=== PATIENT | male | born 1975 | race Caucasian/White ===

== ENCOUNTER → 2017-04-17 | Outpatient (POV) | payer OTHER, SELFPAY | PROVIDERS: Family Provider Family Medicine; PCP Family Medicine; Referring Provider Otolaryngology; Visit Provider Otolaryngology | DX: E03.9 Hypothyroidism, unspecified (principal) | CPT/HCPCS: 36415; 84439; 84443 ==

== ENCOUNTER → 2018-01-23 14:51 | Outpatient (CLI) | payer OTHER, SELFPAY ==
--- NOTE | 2018-01-23 14:54 | MR_ITS ---
MR lumbar spine wo con, MR 3-d myelogram/MRCP HISTORY: LT sided LBP XMONTHS. Bilateral leg pain when raising legs. No trauma. ITS.REASON: LUMBAR BACK PAIN ORDERING PHYSICIAN: Cara Guthrie PATIENT AGE: 42 years Comparison: None TECHNIQUE: Standard multiplanar multiecho sequences are performed without contrast. 3-D MIP and myelographic images are also rendered and reviewed FINDINGS: There is normal alignment. The spinal cord ends at the L1 level. There mild J changes in the lower thoracic spine with some disc desiccation anteriorly at T11-T12 and T12-L1 and L1-L2 L1-L2, L2-L3, and L3-L4 have an unremarkable appearance. L4-L5: There is concentric bulging disc there is a small broad-based central disc protrusion/herniation slightly eccentric toward the left. This does abut the anteromedial aspect of both L5 nerve roots slightly greater on the left. There is mild inferior extrusion of the disc. There is mild left lateral recess narrowing. There is facet and ligamentum flavum hypertrophy at this level with mild right and moderate left foraminal narrowing . L5-S1: Mild concentric bulging disc with mild degenerative disc disease with mild facet and ligamentum flavum hypertrophy with moderate bilateral foraminal narrowing IMPRESSION: 1. L4-L5: There is concentric bulging disc with a small broad-based central disc protrusion/herniation slightly eccentric toward the left. This does abut the anteromedial aspect of both L5 nerve roots slightly greater on the left. There is mild inferior extrusion of the disc. There is mild left lateral recess narrowing. There is facet and ligamentum flavum hypertrophy at this level with mild right and moderate left foraminal narrowing . 2. L5-S1: Mild concentric bulging disc with mild degenerative disc disease with mild facet and ligamentum flavum hypertrophy with moderate bilateral foraminal narrowing
== END ==
PROVIDERS: PCP Family Medicine; Visit Provider Nurse Practitioner
DX: M54.5 Low back pain (principal)
CPT/HCPCS: 72148; 76376

== ENCOUNTER → 2018-06-08 15:15 | Outpatient (CLI) | payer OTHER, SELFPAY ==
[2018-06-08 16:48] LABS: Free T4 (Free Thyroxine) 0.92 ng/dl (0.76-1.46)
== END ==
PROVIDERS: Visit Provider Otolaryngology
DX: E03.9 Hypothyroidism, unspecified (principal)
CPT/HCPCS: 36415; 84439; 84443

== ENCOUNTER → 2020-01-07 15:58 | Outpatient (CLI) | payer OTHER, SELFPAY ==
--- NOTE | 2020-01-07 | MR_ITS ---
PROCEDURE: MR SHOULDER LT WO CON CLINICAL INDICATION: LEFT SHOULDER PAIN LEFT SHOULDER PAIN WITH LIMITED RANGE OF MOTION, SHOULDER SURGERY 3-4- YEARS AGO. PREVIOUS XRAYS 8-2-16 COMPARISON: CR [id number] [id number] VIEWS from 11/21/2015 TECHNIQUE: Routine multiplanar multi echo sequences are performed without and with gadolinium enhancement. FINDINGS: There are postsurgical changes of the humeral head. There is thickening of the supraspinatus and infraspinatus tendons consistent with tendinopathy/tendinosis. There is some irregular increased T2 signal within the supraspinatus tendon. Partial tear is a cannot be excluded. A full-thickness or complete tear does not appear to be present. There is focal increased T2 signal in the distal aspect of the supraspinatus tendon suggesting a partial tear. These findings could also be postsurgical in nature. There are mild hypertrophic changes of the acromioclavicular joint. The bicipital tendon is in place. The subscapularis and teres minor tendons appear intact. No obvious labral tear. IMPRESSION: Postsurgical changes of the humeral head with tendinopathy/tendinosis of the supraspinatus and infraspinatus tendons with possible partial tear of the supraspinatus tendon distally versus post surgical change. Dictated by: Ricardo Garay MD 01/09/2020 07:50 Ricardo Garay MD in [place] 01/09/2020 07:50
== END ==
PROVIDERS: PCP Family Medicine; Visit Provider Nurse Practitioner
DX: M75.82 Other shoulder lesions, left shoulder (principal)
CPT/HCPCS: 73221

== ENCOUNTER → 2020-05-11 14:02 | Outpatient (CLI) | payer OTHER, SELFPAY ==
[2020-05-12 09:58] LABS: Covid-19 Nasal PCR Sendout P&C POSITIVE
== END ==
PROVIDERS: PCP Family Medicine; Visit Provider Nurse Practitioner Family
DX: U07.1 COVID-19 (principal)
CPT/HCPCS: U0004

== ENCOUNTER → 2020-10-30 11:25 | Outpatient (CLI) | payer OTHER, SELFPAY ==
--- NOTE | 2020-10-30 11:30 | XR_ITS ---
PROCEDURE: XR FOOT LT MIN 3V CLINICAL INDICATION: LT FOOT PAIN COMPARISON: No exams were available for comparison FINDINGS: No fracture or dislocation. No lytic or blastic change. There is normal mineralization. The joint spaces are well-preserved. No significant degenerative/arthritic changes. No erosive changes evident. Other findings:There is a small Achilles enthesophyte IMPRESSION: No acute findings. Dictated by: Ricardo Garay MD 10/30/2020 12:21 Ricardo Garay MD in [place] 10/30/2020 12:21
== END ==
PROVIDERS: PCP Nurse Practitioner Family; Visit Provider Nurse Practitioner Family
DX: M79.672 Pain in left foot (principal)
CPT/HCPCS: 73630

== ENCOUNTER 2021-01-13 13:08 | Emergency (ER) | payer OTHER, SELFPAY ==
[2021-01-13 14:00] VITALS: BP 188/115; PULSE 51; RESP 20; TEMP 36.7; O2SAT 99; BMI 36.9
--- NOTE | 2021-01-13 14:18 | HMH.EDUTC ---
[facility] Disposition Clinical Impression: Exposure to COVID-19 virus Disposition: Home, Self-Care Condition on Discharge: Good Instructions: Preventing the Spread of Coronavirus Discharge Instructions Additional Instructions: You have been tested for COVID19. Please isolate yourself as if you are positive until test results received. Return to [facility] if difficulty breathing, chest pain, etc. Referrals: Ki Rivera MD [Primary Care Provider] - Time of Disposition: 14:24 Medical Decision Making - Jorge L Inquiry Pt receiving controlled substance: No Vital Signs: 01/13/21 14:00 Temperature 98.0 F Temperature Source Oral Pulse Rate [Right Brachial] 51 L Respiratory Rate 20 Blood Pressure [Right Arm] 188/115 H Blood Pressure Mean [Right Arm] 139 Blood Pressure Source [Right Arm] Automatic Cuff Blood Pressure Position [Right Arm] Sitting 02 Sat by Pulse Oximetry 99 Oxygen Delivery Method Room Air Orders (Tests/Meds): ORDERS Category Date Time Status Covid-19 Nasal PCR ([facility]) Routine Lab 01/13/21 14:16 Ordered [facility] HPI - General Stated complaint: covid symptoms Time Seen by Provider: 01/13/21 14:18 Mode of Arrival: Ambulatory Source of Information: Patient Limitations: No Limitations Description of Symptoms (Recalled from Triage Doc. by RN): PATIENT C/O HEADACHE, BODY ACHES AND COUGH THAT STARTED LAST NIGHT. STATES HE FEELS LIKE HE DID WHEN HE HAD COVID IN APRIL HEENT Symptoms (Recalled from RN notes): Yes Resp Symptoms (Recalled from RN notes): Yes Skin Symptoms (Recalled from RN notes): No MS Symptoms (Recalled from RN notes): No Functional Status (Recalled from RN notes): WNL - History of Present Illness Provider Complaint: Headache, sore throat, body aches, cough. No fever. Started last night. Has had coworkers positive for COVID19. Had COVID19 in April and feels the same. Onset (ago): day(s) (1) Relieving factors: none Exacerbating factors: none Associated symptoms: malaise Treatments prior to arrival: none - Related Data Previous Rx's Medication Instructions Recorded levothyroxine 200 mcg tablet 200 mcg PO DAILY #30 tab 06/08/18 Allergies Allergy/AdvReac Type Severity Reaction Status Date / Time No Known Allergies Allergy Unverified 04/08/17 14:32 - Worker's Comp Is this a Worker's Comp case?: No [facility] History - Hepatitis A Screen Drug use history?: No High risk sexual behaviors?: No History of sexually transmitted infection?: No Currently employed?: No Childcare worker?: No Do you have indoor plumbing?: Yes Do you have electricity?: Yes Attestation statement:: This patient has been screened for Hepatitis A risk factors. I have reviewed the patient's past medical history: Yes - Social History Smoking Status: Never smoker Alcohol Intake: never Occupational Status: employed ROS Obtained: Yes All systems reviewed & no additional complaints - Constitutional Constitutional: Reports body ache, Reports chills, Reports headache(s), Reports malaise - ENT Ears, Nose, Mouth, and Throat: Reports sore throat - Respiratory Respiratory: Reports cough Physical Exam - General General appearance: alert, in no apparent distress - Head Head exam: normocephalic - Eye Eye exam: Present: PERRL - ENT ENT exam: Present: normal oropharynx, TM's normal bilaterally - Neck Neck exam: Present: normal inspection. Absent: lymphadenopathy - Chest Chest inspection: Present: normal inspection, symmetric chest wall rise - Respiratory Respiratory exam: Present: normal lung sounds bilaterally - Cardiovascular Cardiovascular exam: Present: regular rate, normal rhythm - Neurological Exam Neurological exam: Present: alert, oriented X3 - Psychiatric Psychiatric exam: Present: normal affect, normal mood - Skin Skin exam: Present: warm, dry, intact
[2021-01-13 14:25] VITALS: BP 188/115; PULSE 51; RESP 20; TEMP 36.7; O2SAT 99
== END 2021-01-13 14:29 | disposition home or self-care (01) ==
PROVIDERS: Emergency Provider Physician Assistant; PCP Family Medicine
DX: Z20.822 Contact with and (suspected) exposure to COVID-19 (principal); J02.9 Acute pharyngitis, unspecified; R05 Cough
CPT/HCPCS: 99202; C9803; G0463; U0003; U0005

== ENCOUNTER → 2021-03-22 14:26 | Outpatient (CLI) | payer OTHER, SELFPAY ==
--- NOTE | 2021-03-22 14:29 | XR_ITS ---
PROCEDURE: XR ANKLE LT MIN 3V CLINICAL INDICATION: LT ANKLE PAIN, UNSPECIFIED CHRONICITY COMPARISON: CR ANKL3 ANKLE-LT-3 VIEWS from 12/17/2016 FINDINGS: No fracture or dislocation. No lytic or blastic change. There is normal mineralization. The joint spaces are well-preserved. No significant degenerative/arthritic changes. No erosive changes evident. Other findings:Minimal hypertrophic changes of the distal aspect of the medial malleolus and lateral malleolus with an un fused ossification center versus old fracture at the tip the lateral malleolus medially. Not significantly changed. Small Achilles enthesophyte. Minimal hypertrophic changes noted at the neck of the talus anteriorly. Small spur along the anterior distal tibia. IMPRESSION: Mild degenerative change. No change with no acute finding. Dictated by: Ricardo Garay MD 03/22/2021 14:58 Ricardo Garay MD in [place] 03/22/2021 14:58
== END ==
PROVIDERS: PCP Family Medicine; Visit Provider Nurse Practitioner Family
DX: M25.572 Pain in left ankle and joints of left foot (principal)
CPT/HCPCS: 73610

== ENCOUNTER → 2021-05-14 08:56 | Outpatient (CLI) | payer OTHER, SELFPAY | PROVIDERS: Visit Provider Nurse Practitioner | DX: Z20.822 Contact with and (suspected) exposure to COVID-19 (principal) | CPT/HCPCS: C9803; U0003; U0005 ==

== ENCOUNTER 2021-07-10 17:00 | Outpatient (RCR) | payer OTHER, SELFPAY ==
--- NOTE | 2021-06-26 15:35 | HMH.PTOPEV ---
PT Outpatient Evaluation Rehab PT Outpatient Evaluation Start: 06/26/21 14:58 Freq: Status: Active Protocol: Document 06/26/21 15:04 MEGHANFREDY (Rec: 06/26/21 15:21 DANIEL [id number]) Electronically Signed By Bennett Lopez PT 06/26/21 15:04 Outpatient Therapy Subjective History Subjective History This is the initial Physical Therapy evaluation for Garrett Turcios. Pt is a 46 y/o male referred to PT for c/ o L ankle pain. Pt reports intermittant bouts of pain ~ every month to 6 weeks. Pt states he will step wrong and get a severe sharp pain in posterior lateral achilles area and lateral maleolus. Pt reports this will give hime pain w/ every step but gradually over the next few weeks it will improve and then the cycle will repeat. Pt states he was told he partially tore his achilles at some point in the past. Chief Complaint Pain,Swelling Symptom Type Ache,Sharp,Stabbing Symptoms Relieved By Rest/Positioning,Brace/Support Symptoms Aggravated By Standing,Physical Activity, Walking Prior Functional Limitations None Current Functional Limitations Standing,Squatting,Recreation Activity,Walking,Stairs Symptom Description Intermittent Level of pain today (0-10) 0 Pain scale - at its best (0-10) 0 Pain scale - at its worst (0-10) 9 Ankle/Foot Eval Gait Observation General Gait Pattern Observation No Deviations/Normal Assistive Device Ambulation Assistive Device None Palpation Tenderness left Ankle/Foot Palpation Findings None/Normal Ankle/Foot Palpation Overall Comment No TTP along Achilles, peroneal Mm or tendon, ankle ligaments or PF ATF TTP negative PTF TTP negative CF TTP negative Deltoid ligament TTP negative ROM Ankle/Foot Dorsiflexion w/Knee Extended 10 Active Range Motion (degrees) Ankle/Foot Plantar Flexion Active Range 50 of Motion (degrees) Ankle/Foot Eversion Active Range of 15 Motion (degrees) Ankle/Foot Inversion Active Range of 25 Motion (degrees) MMT Ankle Dorsiflexion Strength Grade 5 Normal A
== END 2021-07-10 17:05 | disposition home or self-care (01) ==
LOC: PT 17:00
PROVIDERS: PCP Family Medicine; Visit Provider Podiatrist
DX: M25.572 Pain in left ankle and joints of left foot (principal); G89.29 Other chronic pain
CPT/HCPCS: 97010; 97014; 97110; 97163; G0283

== ENCOUNTER → 2021-08-06 13:57 | Outpatient (CLI) | payer OTHER, SELFPAY ==
--- NOTE | 2021-08-06 14:00 | XR_ITS ---
FINAL REPORT CLINICAL HISTORY: right lateral foot/ankle pain FINDINGS: RIGHT ANKLE Three views of the right ankle were obtained. There is no acute fracture or dislocation. There are mild degenerative changes. There is a small posterior calcaneal spur. There is no soft tissue abnormality. IMPRESSION: Mild degenerative change without acute bony abnormality. Reviewed, Interpreted and Dictated by Vishnu Pierre III, MD Transcribed by Mohiin Caldera Authenticated by Vishnu Pierre III, MD on 08/06/2021 03:18:20 PM [facility]
--- NOTE | 2021-08-06 14:00 | XR_ITS ---
FINAL REPORT CLINICAL HISTORY: right lateral foot/ankle pain FINDINGS: RIGHT FOOT Three views of the right foot demonstrate no acute fracture or dislocation. The visualized joint spaces are normally aligned. There is a small posterior calcaneal spur. The soft tissues are unremarkable. IMPRESSION: No acute bony abnormality. Reviewed, Interpreted and Dictated by Vishnu Pierre III, MD Transcribed by Mohini Caldera Authenticated by Vishnu Pierre III, MD on 08/06/2021 03:18:19 PM [facility]
== END ==
LOC: RAD 13:58
PROVIDERS: PCP Nurse Practitioner Family; Visit Provider Podiatrist
DX: M25.579 Pain in unspecified ankle and joints of unspecified foot (principal); M79.673 Pain in unspecified foot
CPT/HCPCS: 73610; 73630

== ENCOUNTER → 2022-12-02 10:54 | Outpatient (POV) | payer OTHER, SELFPAY ==
[2022-12-02 11:00] VITALS: BP 175/107; PULSE 77; RESP 19; O2SAT 97; BMI 37.5
--- NOTE | 2022-12-02 12:09 | EXP.PAIN.OV ---
HPI Data of Consult Patient: new to practice Consult date: 12/02/22 Requesting Physician: Denae Coughlin APRN Primary Care Provider: Agueda Gomez APRN Consult Narrative Reason for consult: Low back pain, right hip pain History of present illness: Mr. Turcios is a 47 year old male who presents today as a new patient. He is a referral from Roshni Gomez's office. Today he rates his pain an 8 out of 10. Patient states his pain is all in his low back along the right side and right hip. Patient does describe this as a sharp achy sensation that is worse with increased activity. Patient does state this has been going on for quite some time. Patient denies any specific trauma or injury. He does state that the pain is worse with certain activities such as prolonged sitting or walking. He does state that he has pain when he is getting up from a seated position and frequently feels a catching sensation. Patient does state that he has tried [id number] medications such as Tylenol and ibuprofen along with heat and ice and topicals with minimal relief. Patient has also been given tramadol and Kersey in the past with no additional relief. Patient denies any new updated imaging since 2018. He does state that the pain interferes with his ability to perform activities of daily living such as cooking or cleaning. CC: Denae Coughlin APRN [facility] Disclaimer: The information contained in this section may have been updated after the patient was seen, as this information can be updated by other users. Medical History (Updated 12/02/22 @ 12:14 by Denae Coughlin APRN) Bulging disc Gout HTN (hypertension) Hypothyroid Right knee meniscal tear Surgical History (Updated 12/02/22 @ 11:21 by Kalani Beltre RN) H/O repair of rotator cuff H/O thyroidectomy Social History (Updated 12/02/22 @ 11:22 by Kalani Beltre RN) Smoking Status: Never smoker alcohol intake: never current occupational status: employed Travel in the last 8 weeks: None Review of Systems Review of Systems Review of systems:: pertinent systems reviewed and negative unless documented below Review of systems (narrative): Review of Systems: General: No recent weight changes, no fever, no sleep disturbances Respiratory: No cough, no shortness of air, no recurring pulmonary infections Cardiovascular/peripheral vascular: No chest pain, no palpitations, no edema, no shortness of breath Gastrointestinal: No new onset incontinence, normal bowel movements reported Genitourinary: No new onset incontinence Musculoskeletal: Low back pain, right hip pain Psychiatric: [Normal mood/affect] Neurological: [Denies weakness in extremities], [denies balance issues] Meds Home Medications and Allergies Home Medications Medication Instructions Recorded Confirmed Type lisinopril 40 mg tablet 40 mg PO DAILY BLOOD PRESSURE 04/17/21 12/02/22 History meloxicam 15 mg tablet 15 mg PO DAILY Pain 08/14/21 12/02/22 History chlorthalidone 25 mg tablet 25 mg PO DAILYP PRN . 12/02/22 12/02/22 History levothyroxine 200 mcg tablet 200 mcg PO DAILY thyroid 12/02/22 12/02/22 History (Synthroid) losartan 50 mg-hydrochlorothiazide 1 tab PO DAILY BLOOD PRESSURE 12/02/22 12/02/22 History 12.5 mg tablet New Prescriptions to Start Prescriptions: Allergies Allergy/AdvReac Type Severity Reaction Status Date / Time No Known Allergies Allergy Verified 08/14/21 15:10 Objective Vital signs: Pulse Resp BP Pulse Ox O2 Del Method 77 19 175/107 H 97 Room Air 12/02/22 11:00 12/02/22 11:00 12/02/22 11:00 12/02/22 11:12/02/22 11:00 Narrative: Physical Exam: General: Alert and oriented x3, no acute distress, pleasant and cooperative Lungs: Respirations even and unlabored, symmetrical chest expansion Eyes: PERRL Musculoskeletal: Flexion and extension of lumbar [spine] somewhat guarded secondary to pain, [antalgic gait noted] point tenderness along right S
== END ==
LOC: SC.PAIN 10:55
PROVIDERS: PCP Nurse Practitioner Family; Visit Provider Nurse Practitioner Family
DX: M54.41 Lumbago with sciatica, right side (principal); M46.1 Sacroiliitis, not elsewhere classified; M51.36 Other intervertebral disc degeneration, lumbar region; M25.551 Pain in right hip
CPT/HCPCS: 99202; G0463

== ENCOUNTER 2022-12-10 13:33 | Day surgery (SDC) | payer OTHER, SELFPAY ==
[2022-12-10 13:54] VITALS: PULSE 81; RESP 16; TEMP 36.2; O2SAT 97; BMI 38.0
[2022-12-10 14:03] VITALS: PULSE 87; RESP 18; O2SAT 97
[2022-12-10 14:04] VITALS: BP 180/100; PULSE 87; RESP 18; O2SAT 97
[2022-12-10 14:10] VITALS: BP 160/110; RESP 18; O2SAT 97
--- NOTE | 2022-12-10 14:11 | EXP.PAIN.PRO ---
Procedure Date: 12/10/22 Time: 14:00 Anesthesiologist:: Charles Vaz CRNA Complications:: None Pre-procedure Diagnosis:: Degenerative disc lumbar spine multilevels. Lumbar radiculopathy. Disc bulge multilevel lumbar spine. Right sacroiliitis. Post-procedure Diagnosis:: Same. Indications for Procedure:: This patient is a very pleasant 47-year-old male that comes our clinic today for right sacroiliac joint injection. Patient has extreme point tenderness over the right sacroiliac joint upon examination. He rates his pain 7/10. Specifically, pain increases late in the day while working. Patient has been diagnosed with degenerative disc lumbar spine multilevels. Also, disc bulge lumbar spine multilevels. He is going through a series of lumbar epidural steroid injection at the L4-5 level with minimal to no results. Procedure Details:: Procedure: Right sacroliliac joint injection under fluoroscopy Informed consent was obtained and the risk and benefits of the procedure were explained to the patient.~ The patient was taken to the procedure room and noninvasive monitors were placed including noninvasive blood pressure cuff and pulse oximeter.~ The patient was placed prone on the procedure table.~ The~ right hip was cleansed using Betadine as a cleansing solution.~ C-arm fluorosocpy was used to view the right SI joint.~ The skin and subcutaneous tissues were anesthetized using Lidocaine 1.5% and a 25-gauge needle.~ After this, a 22-gauge spinal needle was inserted under fluoroscopic guidance into the inferior aspect of the right SI joint.~ Omnipaque dye was injected and a good spread was seen throughout the joint.~ After this, approximately 5 mL of bupivacaine 0.25% and Depo-Medrol 40 mg was incrementally injected into the sacroiliac joint.~ The patient tolerated the procedure well with no complications.~ The patient was observed in the Pain Clinic, then discharged home neurologically intact.~ Plan and Disposition:: Patient was discharged without incident.
== END 2022-12-10 14:10 | disposition home or self-care (01) ==
LOC: SC.PAINP 13:34
PROVIDERS: PCP Nurse Practitioner Family; Visit Provider Nurse Anesthetist, Certified Registered
DX: M46.1 Sacroiliitis, not elsewhere classified; M51.16 Intervertebral disc disorders with radiculopathy, lumbar region
CPT/HCPCS: 27096; G0260; J1040

== ENCOUNTER → 2023-01-01 14:54 | Outpatient (POV) | payer OTHER, SELFPAY ==
--- NOTE | 2023-01-01 15:00 | EXP.PAIN.SOA ---
[facility] Pain Management SOAP Note Subjective:: Patient is a pleasant 47-year-old male who presents today for follow-up of right SI injection on 12/10/2022. We are currently treating the patient for degenerative disc disease of lumbar spine with with right-sided sacroiliitis, right hip pain. Today he rates his pain a 2 out of 10. Patient denies any new trauma or injury. Patient denies any change location or type of pain he experiences. Patient states that he has had approximately 75% relief following this injection and feels like it still continuing to provide additional improvement. Patient states that the pain is not constant like what it is and it is much more tolerable. Patient states he has been able to increase his activity with decreased pain symptoms. He does state that he still has trouble putting on his socks however his son is an development trainer and he has given him some exercises that he can do at home to help with this. His Jorge L is [phone]. Its been reviewed and appropriate. Review of Systems: General: No recent weight changes, no fever, no sleep disturbances Respiratory: No cough, no shortness of air, no recurring pulmonary infections Cardiovascular/peripheral vascular: No chest pain, no palpitations, no edema, no shortness of breath Gastrointestinal: No new onset incontinence, normal bowel movements reported Genitourinary: No new onset incontinence Musculoskeletal: Low back pain Psychiatric: [Normal mood/affect] Neurological: [Denies weakness in extremities], [denies balance issues] Objective:: Physical Exam: General: Alert and oriented x3, no acute distress, pleasant and cooperative Lungs: Respirations even and unlabored, symmetrical chest expansion Eyes: PERRL Musculoskeletal: Flexion and extension of lumbar [spine] somewhat guarded secondary to pain, [antalgic gait noted] Neurological: Speech clear, no gross sensory deficit Assessment:: Degenerative disc disease of lumbar spine with right hip pain, right-sided sacroiliitis Plan:: Patient has had significant improvement following his SI injection and does not require any additional injective therapy at this time. Patient will return to clinic in 1 month for reevaluation of symptoms and plan of care. Patient has been instructed to contact the clinic with any concerns before the next appointment. Dr. Montgomery has reviewed this note and agrees with this plan of care. This note was dictated using voice recognition software and make contain errors or omissions. [facility] Disclaimer: The information contained in this section may have been updated after the patient was seen, as this information can be updated by other users. Medical History Bulging disc Gout HTN (hypertension) Hypothyroid Right knee meniscal tear Surgical History H/O repair of rotator cuff H/O thyroidectomy Family History (Updated 12/10/22 @ 13:45 by Kelly Ulloa RN) Other No significant family history Social History Smoking Status: Never smoker alcohol intake: never current occupational status: employed Travel in the last 8 weeks: None
[2023-01-01 15:36] VITALS: BP 160/102; PULSE 70; RESP 19; O2SAT 98; BMI 39.1
== END ==
PROVIDERS: PCP Family Medicine; Visit Provider Nurse Practitioner Family
DX: M51.36 Other intervertebral disc degeneration, lumbar region (principal); M46.1 Sacroiliitis, not elsewhere classified; M25.551 Pain in right hip
CPT/HCPCS: 99212; G0463

== ENCOUNTER 2023-06-20 15:44 | Outpatient (CLI) | payer BC, SELFPAY ==
--- NOTE | 2023-06-20 15:52 | MR_ITS ---
FINAL REPORT CLINICAL HISTORY: chronic low back pain, bulging discs from old MRI right hip pain FINDINGS: Multiplanar MR imaging of the lumbar spine was performed without contrast. On the sagittal T2-weighted images,decreased disc signal is seen at L4-5 and L5-S1. There is mild disc space narrowing at some levels. The vertebral alignment is normal. There is no evidence of compression fracture. The conus has a normal appearance. T12-L1: There is no significant spinal canal stenosis or neuroforaminal encroachment. L1-2: There is no significant spinal canal stenosis or neural foraminal encroachment. L2-3: There is a mild disc bulge. There is no significant spinal canal stenosis or neural foraminal encroachment. L3-4: There is a mild disc bulge. There is no significant spinal canal stenosis. There is mild bilateral neuroforaminal narrowing. L4-5: There is a moderate disc bulge. There is a small focus of increased signal suggesting an annular tear. There is mild spinal canal stenosis and mild bilateral neuroforaminal narrowing. L5-S1: There is a moderate disc bulge. There is no significant spinal canal stenosis. There is mild bilateral neuroforaminal narrowing. IMPRESSION: Multilevel lumbar degenerative disc disease. Reviewed, Interpreted and Dictated by Corinne Calderon MD Transcribed by Grecia Carrion Authenticated and [facility]
== END 2023-06-20 23:59 ==
LOC: RAD 15:47
PROVIDERS: PCP Nurse Practitioner Family; Visit Provider Nurse Practitioner Family
DX: M54.50 Low back pain, unspecified (principal); M51.36 Other intervertebral disc degeneration, lumbar region; M51.37 Other intervertebral disc degeneration, lumbosacral region; M25.551 Pain in right hip; M46.1 Sacroiliitis, not elsewhere classified
CPT/HCPCS: 72148; 76376

== ENCOUNTER 2023-06-23 16:31 | Outpatient (CLI) | payer BC, SELFPAY ==
[2023-06-23 13:47] LABS: Microscopic, Urine URINE MICROSCOPIC (MICROSCOPIC)
[2023-06-23 16:02] LABS: Basophils # 0.1 K/mm3 (0-0.2); Basophils % 1.4 % (0.1-2.0); Eosinophils # 0.2 K/mm3 (0.0-0.4); Eosinophils % 3.2 % (0.1-12.0); Hematocrit 51.2 % (42.0-52.0); Hemoglobin 16.8 g/dL (14.1-18.0); Lymphocytes # 1.9 K/mm3 (0.7-4.5); Lymphocytes % 24.8 % (10-50); Mean Corpuscular HGB Conc 32.8 g/dL (31.8-35.4); Mean Corpuscular Hemoglobin 29.5 pg (27.0-31.2); Mean Corpuscular Volume 89.8 fl (80-94); Mean Platelet Volume 9.4 fl (7.4-10.4); Monocytes # 0.5 K/mm3 (0.1-1.0); Monocytes % 6.1 % (1.7-9.3); Neutrophils # 4.9 K/mm3 (1.8-7.8); Neutrophils % 64.5 % (37.0-80.0); Platelet Count 216 K/mm3 (142-424); Red Cell Distribution Width 14.3 % (11.5-17.5); White Blood Count 7.7 K/mm3 (4.8-10.8)
[2023-06-23 16:34] LABS: Alanine Aminotransferase 91 U/L (12-78); Albumin Level 4.7 g/dl (3.5-5.0); Albumin/Globulin Ratio 1.7 (1.1-1.8); Alkaline Phosphatase 68 U/L (38-126); Anion Gap 12.3 mEq/L (5-15); Aspartate Amino Transferase 70 U/L (17-59); Bilirubin,Total 0.8 mg/dl (0.2-1.3); Blood Urea Nitrogen 21 mg/dl (9-20); Calcium 9.8 mg/dl (8.4-10.2); Carbon Dioxide 31 mmol/L (22.0-30.0); Chloride 101 mmol/L (98-107); Chol/HDL Ratio 7.5 (1-3.5); Cholesterol 324 mg/dl (140-200); Estimated Glomerular Filt Rate 50 ml/min (>60); GFR (African American) 61 ML/MIN (>60); Globulin 2.8 g/dL (1.3-3.2); Glucose 106 mg/dl (74-100); HDL Cholesterol 43 mg/dl (40-60); Potassium 4.3 mmoL/L (3.5-5.1); Sodium 140 mmol/L (136-145); Total Protein,Serum 7.5 g/dl (6.3-8.2); Triglycerides 388 mg/dl (30-150); VLDL Cholesterol 78 mg/dL (0-40)
[2023-06-23 16:52] LABS: 25-OH Vitamin D, Total 20.6 ng/mL (30-100); Direct LDL Cholesterol 157.33 mg/dL (100-129)
[2023-06-23 17:25] LABS: Vitamin B12 552 pg/mL (239-931)
[2023-06-23 17:53] LABS: Free T4 (Free Thyroxine) 0.28 ng/dl (0.78-2.19)
[2023-06-23 20:36] LABS: Hemoglobin A1C 7.9 % (4.0-6.0)
[2023-06-23 21:34] LABS: Appearance,Urine TURBID (Clear); Bilirubin,Urine Negative (Negative); Blood, Urine Negative (Negative); Color,Urine YELLOW (Yellow); Glucose,Urine (UA) Negative (Negative); Ketones,Urine Negative (Negative); Leukocyte Esterase,Urine Negative (Negative); Nitrate,Urine Negative (Negative); Protein,Urine Negative (Negative); Specific Gravity, Urine >= 1.030 (1.005-1.030); Urobilinogen,Urine 0.2 EU/dl (0.2)
[2023-06-23 22:00] LABS: Amorphous Sediment,Urine 4+ /lpf
== END 2023-06-23 23:59 ==
LOC: LAB.DROPOF 16:31
PROVIDERS: PCP Nurse Practitioner Family; Visit Provider Nurse Practitioner Family
DX: C73 Malignant neoplasm of thyroid gland (principal); I10 Essential (primary) hypertension; E03.9 Hypothyroidism, unspecified; R53.83 Other fatigue; Z13.1 Encounter for screening for diabetes mellitus; Z13.220 Encounter for screening for lipoid disorders; E55.9 Vitamin D deficiency, unspecified; Z79.899 Other long term (current) drug therapy
CPT/HCPCS: 80053; 80061; 81001; 82306; 82607; 83036; 84439; 84443; 85025; 87086

== ENCOUNTER 2023-07-21 16:00 | Outpatient (RCR) | payer BC, SELFPAY ==
--- NOTE | 2023-06-25 10:05 | HMH.PTOPEV ---
PT Outpatient Evaluation Rehab PT Outpatient Evaluation Start: 06/25/23 08:50 Freq: Status: Active Protocol: Document 06/25/23 08:50 CK (Rec: 06/25/23 10:05 CK [id number]) E-signed By Denae Cooper, PT Outpatient Therapy Subjective History Subjective History Pt is a 48 y/o male who reports chronic LBP with onset of right posterior hip pain ~ 6 months ago without known injury or cause. Pt reports pain often radiates from the right hip to his knee posteriorly. Pt denies numbness, tingling or bowel/ bladder dysfunction. Pt had a lumbar spine MRI on 06/20/23 with impression of Multilevel lumbar degenerative disc disease. Pt reports he was prescribed Tramadol and Toradol which he states is not helping much. Pt reports he saw pain management and had an injection 3 months ago that provided relief for ~1 month. Pt also states he saw a chiropractor who adjusted him with temporary relief. Pt reports he was referred to neurosurgery but hasn't set up an appointment yet. Pt reports pain is aggravated by sitting, bending and lifting. Pt reports pain improves with standing and walking. 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 Chief Complaint Pain Symptom Type Sharp,Shooting Symptoms Relieved By Ice,Activity Symptoms Aggravated By Sitting,Bending/Stooping, Twisting,Lifting,Sneeze/ Coughing Prior Functional Limitations None Current Functional Limitations Lifting,Dressing,Driving, Sleeping,Sitting,Bending/ Stooping Symptom Description Constant but Variable Level of pain today (0-10) 5 Pain scale - at its best (0-10) 4 Pain scale - at its worst (0-10) 10 Lumbopelvic Eval Posture Lumbar Spine Posture Standing Position Neutral Palapation tenderness bilateral lumbar spinal tenderness Yes: L3-L5, S1 paraspinal tenderness Yes Lumbar/Sacral Palpation Findings Tenderness,Muscle Guarding Accessory Movement L-spine Vertebrae Accessory Movements Central P/A [place] that Elicit Symptoms L3 bilateral L4 bilateral L5 bilateral S1 bilateral Range of Motion Lumbar Spine Active Flexion Range of 45 Motion (degrees) Lumbar Spine Active Extension Range of 20 Motion (degrees) Left Lumbar Spine Lateral Flexion Active 15 Range of Motion (degrees) Right Lumbar Spine Lateral Flexion 15 Active Range of Motion (degrees) Manual Muscle Test Bilateral Knee Extension Strength Grade 5 Normal Knee Flexion Strength Grade 4 Good Hip Flexion Strength Grade 4 Good Hip Abduction Strength Grade 4 Good Hip Adduction Strength Grade 4 Good Hip Extension Strength Grade 4 Good Ankle Dorsiflexion Strength Grade 5 Normal DTR Rt Patellar 1+ Lt Patellar 2+ Rt Gastroc/Soleus 2+ Lt Gastroc/Soleus 2+ Altered Sensation Bilateral Comment equal and intact to light touch sensation Special Tests Sciatic Nerve Tension Test Positive Right Unilateral Straight Leg Raise (Lasegue) Positive Right Test Oswestry Index Section 1 Pain Intensity The pain is severe and does not vary much Section 2 Personal Care (Washing,Dresing) increase the pain and I find it necessary to change my way of doing it Section 3 Lifting lifting heavy weights off the floor, but I can manage light to medium Section 4 Walking I have some pain when walking but it does not increase with distance Section 5 Sitting Pain prevents me from sitting for more than 1/2 hour Section 6 Standing I have some pain on standing, but it does not increase with time Section 7 Sleeping Because of my pain, my normal night's sleep is less than 6 hours sleep Section 8 Social Life Pain has restricted my social life to my home Section 9 Traveling I get extra pain while traveling, but it does not compel me to seek al Section 10 Changing Degreee of Pain My pain is neither getting better or worse Score and Risk Level Oswestry Sc 28 Oswestry Risk Level Severe Disability Outpatient Therapy Assessment Impairments Problems/Impairmments Palpation Tenderness,Impaired Range of Motion,Impaired Strength,Impaired Sitting, Impaired Driving,Impaired Lifting,Impaired Dressing, Impaired Squatting,Impaired Bending,Impaired Recreational Activities,Impaired Work Activities,Subjective C/O Pain ,Impaired Self Care/Self Management Prognosis Rehab Potential Good Clinical Impression Consistent with Diagnosis Yes Short Term Goals Number of Weeks 3 Increase Range of Motion Yes: Improve lumbar AROM flex to at least 60 Improve Ability to Dress Self Yes: report ability to don shoes/socks independently Improve Oswestry Score Yes: Improve score to 23 or less to improve overall QOL Decrease Subjective C/O Pain Yes: Improve pain at worst to 8/10 to improve overall QOL Improve Self Care/Self Management Yes Patient to be Ind w/ HEP Yes Mcfp Goals Number of Weeks 6 Increase Range of Motion Yes: Improve lumbar AROM flex to 70-80, ext to 25, LF to 20- 25 Increase Strength Yes: Improve LE MMT to 5/5 grossly to assist with function Improve Tolerance to Work Activities Yes: Report ability to work full shift with pain <6/10 Improve Oswestry Score Yes: Improve score to 18 or less to improve overall QOL Decrease Subjective C/O Pain Yes: Improve pain at worst to 6/10 to improve overall QOL Outpatient Therapy Plan of Care Treatment Plan May Include Therapeutic Exercise Including Home Yes Exercise Program Manual Therapy Techniques Yes Neuromuscular Re-education Yes Therapeutic Activities to Return to Yes Previous Functional/Work Level ADL/Self Care Education Yes Mechanical Traction Yes Dry Needling Yes Thermal Modalities Yes Electrical Stimulation Yes Ultrasound/Phonophoresis Yes Iontophoresis Yes Massage Yes Eval/Re-Eval Yes Frequency Times per week 2 Duration Number of Weeks 4-6 Addendums This patient is a candidate for social No or vocational rehab? Patient/Guardian verbally acknowledges Yes understanding of treatment program and consents to further treatment? Patient/Guardian verbally acknowledges Yes understanding of diagnosis, prognosis and goals for treatment? Eval Complexity PT Charges 42298 - Low Complexity Shoulder/Elbow Eval Shoulder Objective Measurements Elbow Objective Measurements PHYSICIAN CERTIFICATION: I certify the specified therapy services for Garrett Turcios are required, authorized, and reviewed every 30 days.
== END 2023-07-21 17:00 | disposition home or self-care (01) ==
LOC: PT 16:00
PROVIDERS: Visit Provider Nurse Practitioner Family
DX: M51.36 Other intervertebral disc degeneration, lumbar region (principal); M54.50 Low back pain, unspecified
CPT/HCPCS: 97010; 97014; 97110; 97140; 97163; 97530; G0283

== ENCOUNTER 2023-08-04 12:01 | Outpatient (CLI) | payer BC, SELFPAY ==
[2023-08-04 18:11] LABS: Alanine Aminotransferase 53 U/L (12-78); Albumin Level 4.8 g/dl (3.5-5.0); Albumin/Globulin Ratio 1.8 (1.1-1.8); Alkaline Phosphatase 50 U/L (38-126); Anion Gap 14.3 mEq/L (5-15); Aspartate Amino Transferase 47 U/L (17-59); Bilirubin,Total 0.9 mg/dl (0.2-1.3); Blood Urea Nitrogen 21 mg/dl (9-20); Calcium 10.5 mg/dl (8.4-10.2); Carbon Dioxide 28 mmol/L (22.0-30.0); Chloride 104 mmol/L (98-107); Chol/HDL Ratio 3.8 (1-3.5); Cholesterol 164 mg/dl (140-200); Estimated Glomerular Filt Rate 59 ml/min (>60); GFR (African American) 72 ML/MIN (>60); Globulin 2.7 g/dL (1.3-3.2); Glucose 95 mg/dl (74-100); HDL Cholesterol 43 mg/dl (40-60); Potassium 4.3 mmoL/L (3.5-5.1); Sodium 142 mmol/L (136-145); Total Protein,Serum 7.5 g/dl (6.3-8.2); Triglycerides 333 mg/dl (30-150); VLDL Cholesterol 67 mg/dL (0-40)
[2023-08-04 18:28] LABS: Free T4 (Free Thyroxine) 1.53 ng/dl (0.78-2.19)
[2023-08-04 18:41] LABS: Thyroid Stimulating Hormone 2.68 uIU/mL (0.465-4.68)
== END 2023-08-04 23:59 | disposition home or self-care (01) ==
LOC: LAB.DROPOF 08-05 12:02
PROVIDERS: PCP Nurse Practitioner Family; Visit Provider Nurse Practitioner Family
DX: E03.9 Hypothyroidism, unspecified (principal); G47.33 Obstructive sleep apnea (adult) (pediatric); E11.9 Type 2 diabetes mellitus without complications; E78.5 Hyperlipidemia, unspecified; Z79.84 Long term (current) use of oral hypoglycemic drugs
CPT/HCPCS: 80053; 80061; 84439; 84443

== ENCOUNTER 2023-08-25 15:17 | Outpatient (POV) | payer BC, SELFPAY ==
[2023-08-25 15:31] VITALS: BP 129/78; PULSE 82; RESP 18; O2SAT 97; BMI 39.1
--- NOTE | 2023-08-25 15:39 | A.OFFVIS_ITS ---
[facility] Pain Management SOAP Note Subjective:: Patient is a pleasant 48-year-old male who presents today for follow-up. Today he rates his pain a 3 out of 10 however states that will go up to a 5 or 6 out of 10. Patient does state his pain is all in his right low back going towards his buttocks area and the back of his upper leg. Patient describes this as a constant aching, throbbing sensation that has been very painful the last couple of months. He states the pain is worse with prolonged sitting. He does state the pain interferes with his ability to perform activities of daily living such as cooking and cleaning. Patient states it is tender to touch. Patient has in the past had a right SI injection back in November that did provide 75 to 80% relief lasting several months. He does state from our last visit he did go see a neurosurgeon and did have updated MRI results and that he was recommending more conservative treatment rather than surgical intervention. He has been prescribed tramadol from his PCP. His Jorge L has been reviewed and is appropriate. Review of Systems: General: No recent weight changes, no fever, no sleep disturbances Respiratory: No cough, no shortness of air, no recurring pulmonary infections Cardiovascular/peripheral vascular: No chest pain, no palpitations, no edema, no shortness of breath Gastrointestinal: No new onset incontinence, normal bowel movements reported Genitourinary: No new onset incontinence Musculoskeletal: Right buttocks pain Psychiatric: [Normal mood/affect] Neurological: [Denies weakness in extremities], [denies balance issues] Objective:: Physical Exam: General: Alert and oriented x3, no acute distress, pleasant and cooperative Lungs: Respirations even and unlabored, symmetrical chest expansion Eyes: PERRL Musculoskeletal: Flexion and extension of lumbar [spine] somewhat guarded secondary to pain, [antalgic gait noted] point tenderness along right piriformis muscle Neurological: Speech clear, no gross sensory deficit FINDINGS: Multiplanar MR imaging of the lumbar spine was performed without contrast. On the sagittal T2-weighted images,decreased disc signal is seen at L4-5 and L5-S1. There is mild disc space narrowing at some levels. The vertebral alignment is normal. There is no evidence of compression fracture. The conus has a normal appearance. T12-L1: There is no significant spinal canal stenosis or neuroforaminal encroachment. L1-2: There is no significant spinal canal stenosis or neural foraminal encroachment. L2-3: There is a mild disc bulge. There is no significant spinal canal stenosis or neural foraminal encroachment. L3-4: There is a mild disc bulge. There is no significant spinal canal stenosis. There is mild bilateral neuroforaminal narrowing. L4-5: There is a moderate disc bulge. There is a small focus of increased signal suggesting an annular tear. There is mild spinal canal stenosis and mild bilateral neuroforaminal narrowing. L5-S1: There is a moderate disc bulge. There is no significant spinal canal stenosis. There is mild bilateral neuroforaminal narrowing. IMPRESSION: Multilevel lumbar degenerative disc disease. Reviewed, Interpreted and Dictated by Corinne Calderon MD Transcribed by Grecia Carrion Authenticated and [facility] Assessment:: Degenerative disc disease of lumbar spine with right hip pain, right sacroilii tis, right piriformis syndrome Plan:: Patient is experiencing worsening pain in his right buttocks with limited range of motion of his lumbar spine and point tenderness at his right piriformis muscle. I have discussed with the patient due to his symptoms he may be a beneficial candidate of a right piriformis injection. Risk and benefits were discussed with the patient and he would like to proceed forward with this plan of care. Patient has tried and failed conservative therapies. We will schedule the patient for a right piriformis muscle injection. Patient has been instructed to contact the clinic with any concerns before the next appointment. Dr. Montgomery has reviewed this note and agrees with this plan of care. This note was dictated using voice recognition software and make contain errors or omissions. [facility] Disclaimer: The information contained in this section may have been updated after the patient was seen, as this information can be updated by other users. Medical History Encounter for screening for diabetes mellitus Thyroid cancer 2018 Right knee meniscal tear REPAIRED IN SX. Bulging disc Hypothyroid Gout HTN (hypertension) Enthesopathy of left ankle History of fracture of left ankle Left Achilles bursitis Achilles bursitis of left lower extremity Chronic pain of left ankle Achilles tendinitis Exposure to COVID-19 virus Surgical History H/O thyroidectomy 02/2018, Dr. Devries H/O repair of rotator cuff LEFT Family History Other No significant family history Social History (Updated 08/21/23 @ 15:15 by Poonam Olsen) Smoking Status: Never smoker alcohol intake: never substance use type: denies use current occupational status: employed Travel in the last 8 weeks: None household members: spouse housing: house marital status:
== END 2023-08-25 23:59 | disposition home or self-care (01) ==
LOC: SC.PAIN 15:17
PROVIDERS: PCP Nurse Practitioner Family; Visit Provider Nurse Practitioner Family
DX: M51.36 Other intervertebral disc degeneration, lumbar region (principal); M25.551 Pain in right hip; M46.1 Sacroiliitis, not elsewhere classified; G57.01 Lesion of sciatic nerve, right lower limb
CPT/HCPCS: 99212; G0463

== ENCOUNTER 2023-09-16 14:04 | Day surgery (SDC) | payer BC, SELFPAY ==
[2023-09-16 14:31] VITALS: BP 149/96; PULSE 65; RESP 18; TEMP 36.6; O2SAT 98; BMI 39.1
[2023-09-16 14:42] VITALS: BP 165/89; PULSE 57; RESP 18; O2SAT 98
--- NOTE | 2023-09-16 14:46 | EXP.PAIN.PRO ---
Procedure Date: 09/16/23 Time: 14:30 Anesthesiologist:: Charles Vaz CRNA Complications:: None Pre-procedure Diagnosis:: Right piriformis syndrome Post-procedure Diagnosis:: Same Indications for Procedure:: Patient is a pleasant 48-year-old male comes our clinic today for right piriformis injection. Patient reports pain is constant, dull, aching, sharp, stabbing in the right buttock. He is also status post right sacroiliac joint injection which rendered some improvement. However the deep pain in the right buttock has persisted. He rates his pain 7/10. Procedure Details:: Details of the procedure explained to the patient. The patient taken the procedure room placed in the prone position on the fluoroscopy table. The area over the right buttock was cleaned using chlorhexidine as a cleansing solution. Using a 3-1/2 inch 22-gauge spinal needle the right piriformis muscle was accessed with ease. Needle position was confirmed using 0.5 cc of contrast dye and a lateral spread. After negative aspiration 5 cc of 1% lidocaine +40 mg of Depo-Medrol was injected incrementally. Patient tolerated procedure without difficulty. There are no complications. Plan and Disposition:: Patient was discharged without incident.
[2023-09-16] MEDS: LIDOCAINE 1% 5ML PF VIAL 5 ML (15:06)
[2023-09-16] MEDS: BUPIVACAINE 0.25% 10ML INJ 25 MG IJ (15:06)
[2023-09-16] MEDS: methylPREDNISolone ACETATE 80MG/ML VIAL 80 MG (15:07)
[2023-09-16 15:08] VITALS: BP 134/72; PULSE 61; RESP 18; O2SAT 97
[2023-09-16 15:12] VITALS: BP 134/72; PULSE 61; RESP 18; O2SAT 97
== END 2023-09-16 14:44 | disposition home or self-care (01) ==
PROVIDERS: PCP Nurse Practitioner Family; Visit Provider Nurse Anesthetist, Certified Registered
DX: G57.01 Lesion of sciatic nerve, right lower limb (principal); M79.18 Myalgia, other site
CPT/HCPCS: 20552; 77002; J1010

== ENCOUNTER 2023-10-06 15:06 | Outpatient (POV) | payer BC, SELFPAY ==
[2023-10-06 15:12] VITALS: BP 137/79; PULSE 79; RESP 18; O2SAT 96; BMI 39.1
--- NOTE | 2023-10-06 15:22 | A.OFFVIS_ITS ---
[facility] Pain Management SOAP Note Subjective:: Patient is a pleasant 48-year-old male who presents today for follow-up of right piriformis injection on 09/16/2023. Today he rates his pain a 4 out of 10. Patient states that he is getting much better sleep following that injection. He does state that he is not waking up due to the pain. Patient does state overall it is much more functional however during the day he still has difficulty sitting for longer periods of time. Patient denies any new trauma or injury. Patient has been prescribed gabapentin and tramadol from his PCP in the past. His Jorge L has been reviewed and is appropriate. Review of Systems: General: No recent weight changes, no fever, no sleep disturbances Respiratory: No cough, no shortness of air, no recurring pulmonary infections Cardiovascular/peripheral vascular: No chest pain, no palpitations, no edema, no shortness of breath Gastrointestinal: No new onset incontinence, normal bowel movements reported Genitourinary: No new onset incontinence Musculoskeletal: Right buttocks pain Psychiatric: [Normal mood/affect] Neurological: [Denies weakness in extremities], [denies balance issues] Objective:: Physical Exam: General: Alert and oriented x3, no acute distress, pleasant and cooperative Lungs: Respirations even and unlabored, symmetrical chest expansion Eyes: PERRL Musculoskeletal: Flexion and extension of lumbar [spine] somewhat guarded secondary to pain, [antalgic gait noted] Neurological: Speech clear, no gross sensory deficit Assessment:: Degenerative disc disease of lumbar spine with right hip pain, right sacroiliitis, right piriformis syndrome Plan:: We will order the patient a compounded cream. Patient will return to clinic in 1 month for reevaluation of symptoms and plan of care. Patient has been instructed to contact the clinic with any concerns before the next appointment. Dr. Montgomery has reviewed this note and agrees with this plan of care. This note was dictated using voice recognition software and make contain errors or omissions. [facility] Disclaimer: The information contained in this section may have been updated after the patient was seen, as this information can be updated by other users. Medical History Achilles bursitis of left lower extremity Achilles tendinitis Bulging disc Chronic pain of left ankle Encounter for screening for diabetes mellitus Enthesopathy of left ankle Exposure to COVID-19 virus Gout History of fracture of left ankle HTN (hypertension) Hypothyroid Left Achilles bursitis Right knee meniscal tear REPAIRED IN SX. Thyroid cancer 2018 Surgical History H/O repair of rotator cuff LEFT H/O thyroidectomy 02/2018, Dr. Devries Family History Other No significant family history Social History Smoking Status: Never smoker alcohol intake: never substance use type: denies use current occupational status: employed Travel in the last 8 weeks: None household members: spouse housing: house marital status:
== END 2023-10-06 23:59 | disposition home or self-care (01) ==
LOC: SC.PAIN 15:06
PROVIDERS: PCP Family Medicine; Visit Provider Nurse Practitioner Family
DX: M51.36 Other intervertebral disc degeneration, lumbar region (principal); M25.551 Pain in right hip; M46.1 Sacroiliitis, not elsewhere classified; G57.01 Lesion of sciatic nerve, right lower limb
CPT/HCPCS: 99212; G0463

== ENCOUNTER 2023-10-27 16:58 | Outpatient (CLI) | payer BC, SELFPAY ==
[2023-10-27 17:18] LABS: Basophils # 0.1 K/mm3 (0-0.2); Eosinophils # 0.2 K/mm3 (0.0-0.4); Eosinophils % 2.1 % (0.1-12.0); Hematocrit 42.9 % (42.0-52.0); Hemoglobin 14.6 g/dL (14.1-18.0); Lymphocytes # 1.8 K/mm3 (0.7-4.5); Lymphocytes % 24.9 % (10-50); Mean Corpuscular HGB Conc 34.1 g/dL (31.8-35.4); Mean Corpuscular Hemoglobin 29.5 pg (27.0-31.2); Mean Corpuscular Volume 86.7 fl (80-94); Mean Platelet Volume 9.1 fl (7.4-10.4); Monocytes # 0.4 K/mm3 (0.1-1.0); Monocytes % 5.8 % (1.7-9.3); Neutrophils # 4.7 K/mm3 (1.8-7.8); Neutrophils % 66.1 % (37.0-80.0); Platelet Count 237 K/mm3 (142-424); Red Blood Count 4.95 M/mm3 (4.60-6.20); Red Cell Distribution Width 13.9 % (11.5-17.5); White Blood Count 7.1 K/mm3 (4.8-10.8)
[2023-10-27 17:43] LABS: Alanine Aminotransferase 63 U/L (12-78); Blood Urea Nitrogen 22 mg/dl (9-20); Estimated Glomerular Filt Rate 47 ml/min (>60); GFR (African American) 57 ML/MIN (>60)
[2023-10-27 17:44] LABS: Albumin Level 4.7 g/dl (3.5-5.0); Albumin/Globulin Ratio 1.7 (1.1-1.8); Alkaline Phosphatase 41 U/L (38-126); Aspartate Amino Transferase 46 U/L (17-59); Bilirubin,Total 0.5 mg/dl (0.2-1.3); Calcium 10.2 mg/dl (8.4-10.2); Carbon Dioxide 28 mmol/L (22.0-30.0); Cholesterol 187 mg/dl (140-200); Globulin 2.8 g/dL (1.3-3.2); Glucose 153 mg/dl (74-100); Magnesium 1.9 mg/dl (1.6-2.3); Total Protein,Serum 7.5 g/dl (6.3-8.2); Triglycerides 274 mg/dl (30-150); VLDL Cholesterol 55 mg/dL (0-40)
[2023-10-27 17:45] LABS: Chol/HDL Ratio 5.1 (1-3.5); HDL Cholesterol 37 mg/dl (40-60)
[2023-10-27 17:52] LABS: Anion Gap 13.9 mEq/L (5-15); Chloride 103 mmol/L (98-107); Sodium 141 mmol/L (136-145)
[2023-10-27 17:59] LABS: Direct LDL Cholesterol 96.74 mg/dL (100-129)
[2023-10-27 18:25] LABS: Thyroid Stimulating Hormone 0.66 uIU/mL (0.465-4.68)
== END 2023-10-27 23:59 | disposition home or self-care (01) ==
LOC: LAB.DROPOF 16:58
PROVIDERS: PCP Nurse Practitioner Family; Visit Provider Nurse Practitioner Family
DX: R68.89 Other general symptoms and signs (principal); E78.5 Hyperlipidemia, unspecified
CPT/HCPCS: 80050; 80053; 80061; 83735; 84443; 85025

== ENCOUNTER 2023-11-05 15:04 | Outpatient (POV) | payer BC, SELFPAY ==
[2023-11-05 15:46] VITALS: BP 139/91; PULSE 82; RESP 18; O2SAT 96; BMI 38.4
--- NOTE | 2023-11-05 16:09 | A.OFFVIS_ITS ---
[facility] Disclaimer: The information contained in this section may have been updated after the patient was seen, as this information can be updated by other users. Medical History (Updated 11/05/23 @ 16:11 by Denae Coughlin APRN) Encounter for screening for diabetes mellitus Thyroid cancer Right knee meniscal tear Bulging disc Hypothyroid Gout HTN (hypertension) Enthesopathy of left ankle History of fracture of left ankle Left Achilles bursitis Achilles bursitis of left lower extremity Chronic pain of left ankle Achilles tendinitis Exposure to COVID-19 virus Surgical History H/O thyroidectomy H/O repair of rotator cuff Family History Other No significant family history Social History Smoking Status: Never smoker alcohol intake: never substance use type: denies use current occupational status: employed Travel in the last 8 weeks: None household members: spouse housing: house marital status: PM Subjective & Objective Subjective Subjective:: Patient is a pleasant 48-year-old male who presents today for follow-up. Today he rates his pain at 3 out of 10. Patient denies any new trauma or injury. He does state that he still having the same pain in and around his right piriformis muscle. He does state that it is much better than what it was initially however he has trouble still bending down to put on his shoes in the morning. Patient did end up trying the compounded cream however states that he really did not notice significant relief with this. Patient has had gabapentin and tramadol prescribed in the past from outside providers. Patient does state that he had recent lab work that did show lowered kidney function. He states he is scheduled to go back for additional labs in the next couple of weeks. His Jorge L has been reviewed and is appropriate. Review of Systems: General: No recent weight changes, no fever, no sleep disturbances Respiratory: No cough, no shortness of air, no recurring pulmonary infections Cardiovascular/peripheral vascular: No chest pain, no palpitations, no edema, no shortness of breath Gastrointestinal: No new onset incontinence, normal bowel movements reported Genitourinary: No new onset incontinence Musculoskeletal: Right buttocks pain Psychiatric: [Normal mood/affect] Neurological: [Denies weakness in extremities], [denies balance issues] Pain at rest (0-10 scale): 3 Objective Objective:: Physical Exam: General: Alert and oriented x3, no acute distress, pleasant and cooperative Lungs: Respirations even and unlabored, symmetrical chest expansion Eyes: PERRL Musculoskeletal: Flexion and extension of lumbar [spine] somewhat guarded secondary to pain Neurological: Speech clear, no gross sensory deficit Has patient had previous pain injection?: No Conservative treatment options previously tried: Home exercise plan Length of treatment: Longer than 6 weeks Meds Home Medications and Allergies Home Medications Medication Instructions Recorded Confirmed Type duloxetine 30 mg capsule,delayed 30 mg PO BID #60 caps 06/18/23 11/05/23 Rx release levothyroxine 175 mcg tablet 175 mcg PO DAILY #90 tabs 06/23/23 11/05/23 Rx losartan 100 1 tab PO DAILY #90 tabs 06/23/23 11/05/23 Rx mg-hydrochlorothiazide 25 mg tablet atorvastatin 80 mg tablet 80 mg PO HS #90 tabs 07/07/23 11/05/23 Rx blood sugar diagnostic (OneTouch #100 ea 07/07/23 11/05/23 Rx Verio test strips) blood-glucose meter #1 ea 07/07/23 11/05/23 Rx lancets 33 gauge #100 ea 07/07/23 11/05/23 Rx carvedilol 6.25 mg tablet (Coreg) 6.25 mg PO BID #180 tabs 08/04/23 11/05/23 Rx fenofibrate nanocrystallized 145 145 mg PO DAILY #90 tabs 08/05/23 11/05/23 Rx mg tablet gabapentin 100 mg capsule 100 mg PO DAILY PRN Pain 10/27/23 11/05/23 History semaglutide 0.25 mg or 0.5 mg (2 0.25 mg (0.368 mL) SQ WEEKLY 30 10/27/23 11/05/23 Rx mg/3 mL) subcutaneous pen injector days #1.84 mL (Ozempic) New Prescriptions to Start Prescriptions: Allergies Allergy/AdvReac Type Severity Reaction Status Date / Time No Known Allergies Allergy Verified 10/27/23 15:18 Assessment and Plan *Assessment and plan (1) Low back pain: Status: Acute Qualifiers: Chronicity: acute Back pain laterality: right Sciatica presence: with sciatica Sciatica laterality: sciatica of right side Qualified Code(s): M54.41 - Lumbago with sciatica, right side Category: Medical Code(s): M54.50 - Low back pain, unspecified (2) Piriformis syndrome of right side: Status: Acute Category: Medical Code(s): G57.01 - Lesion of sciatic nerve, right lower limb Plan Patient is still experiencing worsening pain in and around his right piriformis muscle. I have discussed with the patient that I will send in a different type of muscle relaxer. Patient has been tried on Flexeril in the past. Will send in a 2-week dose of baclofen 10 mg twice daily. Patient will return to clinic in 2 weeks for reevaluation of symptoms and plan of care. Patient has been instructed to contact the clinic with any concerns before the next appointment. Dr. Montgomery has reviewed this note and agrees with this plan of care. This note was dictated using voice recognition software and make contain errors or omissions.
== END 2023-11-05 23:59 | disposition home or self-care (01) ==
PROVIDERS: PCP Nurse Practitioner Family; Visit Provider Nurse Practitioner Family
DX: M54.41 Lumbago with sciatica, right side (principal); G57.01 Lesion of sciatic nerve, right lower limb; Z79.85 Long-term (current) use of injectable non-insulin antidiabetic drugs
CPT/HCPCS: 99212; G0463

== ENCOUNTER 2023-11-11 11:25 | Outpatient (CLI) | payer BC, SELFPAY ==
[2023-11-11 17:45] LABS: Hemoglobin A1C 6.3 % (4.0-6.0)
[2023-11-11 18:41] LABS: Albumin Level 4.7 g/dl (3.5-5.0); Anion Gap 13.3 mEq/L (5-15); Blood Urea Nitrogen 22 mg/dl (9-20); Calcium 10.2 mg/dl (8.4-10.2); Carbon Dioxide 29 mmol/L (22.0-30.0); Chloride 105 mmol/L (98-107); Estimated Glomerular Filt Rate 34 ml/min (>60); GFR (African American) 41 ML/MIN (>60); Glucose 101 mg/dl (74-100); Phosphorous 4.2 mg/dl (2.5-4.5); Potassium 4.3 mmoL/L (3.5-5.1); Sodium 143 mmol/L (136-145)
== END 2023-11-11 23:59 | disposition home or self-care (01) ==
LOC: LAB.DROPOF 11-12 11:25
PROVIDERS: PCP Nurse Practitioner Family; Visit Provider Nurse Practitioner Family
DX: N28.9 Disorder of kidney and ureter, unspecified (principal); E11.9 Type 2 diabetes mellitus without complications
CPT/HCPCS: 80069; 83036

== ENCOUNTER 2023-11-17 15:04 | Outpatient (CLI) | payer BC, SELFPAY ==
--- NOTE | 2023-11-17 15:05 | US_ITS ---
FINAL REPORT TECHNIQUE: Ultrasound images of the kidneys and bladder were obtained. CLINICAL HISTORY: N28.9 - Disorder of kidney and ureter, unspecified FINDINGS: The right kidney measures 10.3 cm in length. It is normal in echogenicity. There is no hydronephrosis. The left kidney measures 10.7 cm in length. It is normal in echogenicity. There is no hydronephrosis. There is fatty infiltration of the liver. The spleen is moderately enlarged measuring 16 cm. There are calcified granulomas within the spleen. IMPRESSION: Moderate splenomegaly. Fatty liver. Reviewed, Interpreted and Dictated by Ulices Reed MD Transcribed by Polly Moreira Authenticated and [facility]
== END 2023-11-17 23:59 | disposition home or self-care (01) ==
LOC: RAD 15:05
PROVIDERS: PCP Nurse Practitioner Family; Visit Provider Nurse Practitioner Family
DX: N28.9 Disorder of kidney and ureter, unspecified (principal)
CPT/HCPCS: 76770

== ENCOUNTER 2023-11-24 15:01 | Outpatient (POV) | payer BC, SELFPAY ==
[2023-11-24 15:10] VITALS: BP 148/99; PULSE 81; RESP 16; O2SAT 97; BMI 37.6
--- NOTE | 2023-11-24 15:50 | EXP.PAIN.SOA ---
[facility] Disclaimer: The information contained in this section may have been updated after the patient was seen, as this information can be updated by other users. Medical History Encounter for screening for diabetes mellitus Thyroid cancer 2017 Right knee meniscal tear REPAIRED IN SX. Bulging disc Hypothyroid Gout HTN (hypertension) Enthesopathy of left ankle History of fracture of left ankle Left Achilles bursitis Achilles bursitis of left lower extremity Chronic pain of left ankle Achilles tendinitis Exposure to COVID-19 virus Surgical History H/O thyroidectomy 02/2018, Dr. Devries H/O repair of rotator cuff LEFT Family History Other No significant family history Social History Smoking Status: Never smoker alcohol intake: never substance use type: denies use current occupational status: other Travel in the last 8 weeks: None household members: spouse housing: house marital status: PM Subjective & Objective Subjective Subjective:: Patient is a pleasant 48-year-old male who presents today for follow-up. Today he rates his pain a 6 out of 10. Patient denies any new trauma or injury. He does state that he continues to have pain all in his right buttocks area. Patient does state that the baclofen we sent and seemed to make no change in his symptoms. Patient states that it just continues to seem like it is getting worse. Patient does state that it is an aching, throbbing sensation that does interfere with his ability to perform activities of daily living. Patient has been tried on gabapentin, tramadol from outside providers, Flexeril and now baclofen with no improvement. His Jorge L has been reviewed and is appropriate. Review of Systems: General: No recent weight changes, no fever, no sleep disturbances Respiratory: No cough, no shortness of air, no recurring pulmonary infections Cardiovascular/peripheral vascular: No chest pain, no palpitations, no edema, no shortness of breath Gastrointestinal: No new onset incontinence, normal bowel movements reported Genitourinary: No new onset incontinence Musculoskeletal: Right buttocks pain Psychiatric: [Normal mood/affect] Neurological: [Denies weakness in extremities], [denies balance issues] Pain at rest (0-10 scale): 6 Objective Objective:: Physical Exam: General: Alert and oriented x3, no acute distress, pleasant and cooperative Lungs: Respirations even and unlabored, symmetrical chest expansion Eyes: PERRL Musculoskeletal: Flexion and extension of lumbar [spine] somewhat guarded secondary to pain, [antalgic gait noted] point tenderness along right piriformis muscle Neurological: Speech clear, no gross sensory deficit Has patient had previous pain injection?: No Conservative treatment options previously tried: Home exercise plan Length of treatment: Longer than 6 weeks Meds Home Medications and Allergies Home Medications ?Medication ?Instructions ?Recorded ?Confirmed ?Type duloxetine 30 mg capsule,delayed 30 mg PO BID #60 caps 06/18/23 11/24/23 Rx release levothyroxine 175 mcg tablet 175 mcg PO DAILY #90 tabs 06/23/23 11/24/23 Rx losartan 100 1 tab PO DAILY #90 tabs 06/23/23 11/24/23 Rx mg-hydrochlorothiazide 25 mg tablet atorvastatin 80 mg tablet 80 mg PO HS #90 tabs 07/07/23 11/24/23 Rx blood sugar diagnostic (OneTouch #100 ea 07/07/23 11/24/23 Rx Verio test strips) blood-glucose meter #1 ea 07/07/23 11/24/23 Rx lancets 33 gauge #100 ea 07/07/23 11/24/23 Rx carvedilol 6.25 mg tablet (Coreg) 6.25 mg PO BID #180 tabs 08/04/23 11/24/23 Rx fenofibrate nanocrystallized 145 145 mg PO DAILY #90 tabs 08/05/23 11/24/23 Rx mg tablet semaglutide 0.25 mg or 0.5 mg (2 0.25 mg (0.368 mL) SQ WEEKLY 30 10/27/23 11/24/23 Rx mg/3 mL) subcutaneous pen injector days #1.84 mL (Ozempic) baclofen 10 mg tablet 10 mg PO BID #28 tabs 11/05/23 11/24/23 Rx New Prescriptions to Start Prescriptions: Allergies Allergy/AdvReac Type Severity Reaction Status Date / Time No Known Allergies Allergy Verified 11/11/23 15:55 Assessment and Plan *Assessment and plan (1) Piriformis syndrome of right side: Status: Acute Category: Medical Code(s): G57.01 - Lesion of sciatic nerve, right lower limb (2) Myofascial pain on right side: Status: Acute Category: Medical Code(s): M79.18 - Myalgia, other site Plan Patient is experiencing worsening pain still along his right buttocks with point tenderness along his right piriformis muscle. I did discuss that he may benefit from trigger point injections at this site. Risk and benefits were discussed with the patient and he would like to proceed forward with this plan of care. Patient will be scheduled for right piriformis muscle injection. This injection will not use fluoroscopy for ultrasound. Patient has tried and failed conservative therapy including oral medications, heat and ice, topicals, continued at home stretching exercise for longer than 6 weeks. Patient has been instructed to contact the clinic with any concerns before the next appointment. Dr. Montgomery has reviewed this note and agrees with this plan of care. This note was dictated using voice recognition software and make contain errors or omissions. All injections are used with Lidocaine or Bupivacaine and Depo Medrol.
== END 2023-11-24 23:59 | disposition home or self-care (01) ==
LOC: SC.PAIN 15:01
PROVIDERS: PCP Nurse Practitioner Family; Visit Provider Nurse Practitioner Family
DX: G57.01 Lesion of sciatic nerve, right lower limb (principal); M79.18 Myalgia, other site; Z79.85 Long-term (current) use of injectable non-insulin antidiabetic drugs
CPT/HCPCS: 99212; G0463

== ENCOUNTER 2023-12-09 14:07 | Day surgery (SDC) | payer BC, SELFPAY ==
[2023-12-09 14:27] VITALS: BP 140/89; PULSE 83; RESP 16; TEMP 36.8; O2SAT 97; BMI 39.1
[2023-12-09] MEDS: BUPIVACAINE 0.25% 10ML INJ 25 MG IJ (14:39)
[2023-12-09] MEDS: LIDOCAINE 1% 5ML PF VIAL 5 ML (14:39)
[2023-12-09 14:40] VITALS: BP 142/86; PULSE 81; RESP 18; O2SAT 98
[2023-12-09] MEDS: methylPREDNISolone ACETATE 80MG/ML VIAL 80 MG (14:40)
[2023-12-09 14:41] VITALS: BP 142/86; PULSE 81; RESP 18; O2SAT 98
[2023-12-09] MEDS: IOPAMIDOL-200 (41%);10ML VIAL 10 ML IV (14:42)
[2023-12-09 14:46] VITALS: BP 114/70; PULSE 75; RESP 16; O2SAT 97
--- NOTE | 2023-12-09 14:49 | EXP.PAIN.PRO ---
Procedure Date: 12/09/23 Time: 14:40 Anesthesiologist:: Charles Vaz CRNA Complications:: None Pre-procedure Diagnosis:: Right piriformis syndrome Post-procedure Diagnosis:: Same Indications for Procedure:: Patient is a pleasant 48-year-old male comes our clinic today for right piriformis injection. Patient describes right low buttock pain as constant, dull, sharp, stabbing. He rates his pain 7/10. Patient had significant improvement in terms of his right piriformis pain with previous injection. Procedure Details:: Details of the procedure explained to the patient. The patient taken procedure and placed in the prone position on the fluoroscopy table. The area over the right buttock was cleaned using chlorhexidine as a cleansing solution. Using fluoroscopy guidance a 3 inch 22-gauge spinal needle was used to access the right piriformis muscle. Needle position was confirmed using 0.5 cc of contrast dye and a lateral spread. At this time after negative aspiration 5 cc of 1% lidocaine +40 mg Depo-Medrol was injected. Patient tolerated procedure without difficulty. There are no complications. Plan and Disposition:: Patient was discharged out incident.
== END 2023-12-09 14:46 | disposition home or self-care (01) ==
LOC: SC.PAINP 14:08
PROVIDERS: PCP Nurse Practitioner Family; Visit Provider Nurse Anesthetist, Certified Registered
DX: G57.01 Lesion of sciatic nerve, right lower limb (principal)
CPT/HCPCS: 20552; 77002; J1010; Q9966

== ENCOUNTER 2024-01-07 15:12 | Outpatient (POV) | payer BC, SELFPAY ==
--- NOTE | 2024-01-07 15:50 | A.OFFVIS_ITS ---
[facility] Disclaimer: The information contained in this section may have been updated after the patient was seen, as this information can be updated by other users. Medical History Encounter for screening for diabetes mellitus Thyroid cancer 2017 Right knee meniscal tear REPAIRED IN SX. Bulging disc Hypothyroid Gout HTN (hypertension) Enthesopathy of left ankle History of fracture of left ankle Left Achilles bursitis Achilles bursitis of left lower extremity Chronic pain of left ankle Achilles tendinitis Exposure to COVID-19 virus Surgical History H/O thyroidectomy 02/2018, Dr. Devries H/O repair of rotator cuff LEFT Family History Other No significant family history Social History Smoking Status: Never smoker alcohol intake: never substance use type: denies use current occupational status: other Travel in the last 8 weeks: None household members: spouse housing: house marital status: PM Subjective & Objective Subjective Subjective:: Patient is a pleasant 48-year-old male who presents today for follow-up of right piriformis injection on 12/17/2023. Today he rates his pain a 2 out of 10. Patient does state that he has had at least 75% improvement following this injection. He states that he went from about a 10 out of 10 pain to the 2 out of 10 pain and feels like it still providing significant relief. He states he has been able to increase his activity with overall decreased pain. Patient has been prescribed compounded cream and tried on other oral medications with minimal relief. His Jorge L has been reviewed and is appropriate. Review of Systems: General: No recent weight changes, no fever, no sleep disturbances Respiratory: No cough, no shortness of air, no recurring pulmonary infections Cardiovascular/peripheral vascular: No chest pain, no palpitations, no edema, no shortness of breath Gastrointestinal: No new onset incontinence, normal bowel movements reported Genitourinary: No new onset incontinence Musculoskeletal: Buttocks pain Psychiatric: [Normal mood/affect] Neurological: [Denies weakness in extremities], [denies balance issues] Pain at rest (0-10 scale): 2 Objective Objective:: Physical Exam: General: Alert and oriented x3, no acute distress, pleasant and cooperative Lungs: Respirations even and unlabored, symmetrical chest expansion Eyes: PERRL Musculoskeletal: Flexion and extension of sacral [spine] somewhat guarded secondary to pain Neurological: Speech clear, no gross sensory deficit Has patient had previous pain injection?: Yes Percent improvement in pain since last injection: 75% Conservative treatment options previously tried: Home exercise plan Length of treatment: Longer than 6 weeks Meds Home Medications and Allergies Home Medications ?Medication ?Instructions ?Recorded ?Confirmed ?Type duloxetine 30 mg capsule,delayed 30 mg PO BID #60 caps 06/18/23 12/09/23 Rx release levothyroxine 175 mcg tablet 175 mcg PO DAILY #90 tabs 06/23/23 12/09/23 Rx losartan 100 1 tab PO DAILY #90 tabs 06/23/23 12/09/23 Rx mg-hydrochlorothiazide 25 mg tablet atorvastatin 80 mg tablet 80 mg PO HS #90 tabs 07/07/23 12/09/23 Rx blood sugar diagnostic (OneTouch #100 ea 07/07/23 12/09/23 Rx Verio test strips) blood-glucose meter #1 ea 07/07/23 12/09/23 Rx lancets 33 gauge #100 ea 07/07/23 12/09/23 Rx carvedilol 6.25 mg tablet (Coreg) 6.25 mg PO BID #180 tabs 08/04/23 12/09/23 Rx fenofibrate nanocrystallized 145 145 mg PO DAILY #90 tabs 08/05/23 12/09/23 Rx mg tablet semaglutide 0.25 mg or 0.5 mg (2 0.25 mg (0.368 mL) SQ WEEKLY 30 10/27/23 12/09/23 Rx mg/3 mL) subcutaneous pen injector days #1.84 mL (Ozempic) baclofen 10 mg tablet 10 mg PO BID #28 tabs 11/05/23 12/09/23 Rx New Prescriptions to Start Prescriptions: Allergies Allergy/AdvReac Type Severity Reaction Status Date / Time No Known Allergies Allergy Verified 12/09/23 14:27 Assessment and Plan *Assessment and plan (1) Piriformis syndrome of right side: Status: Acute Category: Medical Code(s): G57.01 - Lesion of sciatic nerve, right lower limb Plan Patient has had significant improvement and does not require any additional injection therapy at this time. Patient will return to clinic in 1 month for reevaluation of symptoms and plan of care. Patient has been instructed to contact the clinic with any concerns before the next appointment. Dr. Montgomery has reviewed this note and agrees with this plan of care. This note was dictated using voice recognition software and make contain errors or omissions. All injections are used with Lidocaine or Bupivacaine and Depo Medrol.
[2024-01-07 16:02] VITALS: BP 136/76; PULSE 77; RESP 18; O2SAT 96; BMI 39.1
== END 2024-01-07 23:59 | disposition home or self-care (01) ==
LOC: SC.PAIN 15:13
PROVIDERS: PCP Nurse Practitioner Family; Visit Provider Nurse Practitioner Family
DX: G57.01 Lesion of sciatic nerve, right lower limb (principal)
CPT/HCPCS: 99212; G0463

== ENCOUNTER 2024-02-04 15:19 | Outpatient (POV) | payer BC, SELFPAY ==
[2024-02-04 15:36] VITALS: BP 140/84; PULSE 64; RESP 18; O2SAT 98; BMI 38.4
--- NOTE | 2024-02-04 15:45 | EXP.PAIN.SOA ---
[facility] Disclaimer: The information contained in this section may have been updated after the patient was seen, as this information can be updated by other users. Medical History (Updated 01/21/24 @ 16:48 by Edwardo Orellana II, MD) Fatty liver Encounter for screening for diabetes mellitus Thyroid cancer Right knee meniscal tear Bulging disc Hypothyroid Gout HTN (hypertension) Enthesopathy of left ankle History of fracture of left ankle Left Achilles bursitis Achilles bursitis of left lower extremity Chronic pain of left ankle Achilles tendinitis Exposure to COVID-19 virus Surgical History H/O thyroidectomy H/O repair of rotator cuff Family History Other No significant family history Social History Smoking Status: Never smoker alcohol intake: never substance use type: denies use current occupational status: other Travel in the last 8 weeks: None household members: spouse housing: house marital status: PM Subjective & Objective Subjective Subjective:: Patient is a pleasant 48-year-old male who presents today for 1 month follow-up. Today he rates his pain a 1 out of 10. Patient did previously have a right piriformis injection on 12/16 that did provide 75% improvement and has continued to provide additional relief. He denies any other changes. His Jorge L has been reviewed and is appropriate. Review of Systems: General: No recent weight changes, no fever, no sleep disturbances Respiratory: No cough, no shortness of air, no recurring pulmonary infections Cardiovascular/peripheral vascular: No chest pain, no palpitations, no edema, no shortness of breath Gastrointestinal: No new onset incontinence, normal bowel movements reported Genitourinary: No new onset incontinence Musculoskeletal: Buttocks pain Psychiatric: [Normal mood/affect] Neurological: [Denies weakness in extremities], [denies balance issues] Pain at rest (0-10 scale): 1 Objective Objective:: Physical Exam: General: Alert and oriented x3, no acute distress, pleasant and cooperative Lungs: Respirations even and unlabored, symmetrical chest expansion Eyes: PERRL Musculoskeletal: Flexion and extension of sacrum [spine] within normal limits Neurological: Speech clear, no gross sensory deficit Has patient had previous pain injection?: No Conservative treatment options previously tried: Home exercise plan Length of treatment: Longer than 6-week Meds Home Medications and Allergies Home Medications ?Medication ?Instructions ?Recorded ?Confirmed ?Type duloxetine 30 mg capsule,delayed 30 mg PO BID #60 caps 06/18/23 02/04/24 Rx release levothyroxine 175 mcg tablet 175 mcg PO DAILY #90 tabs 06/23/23 02/04/24 Rx losartan 100 1 tab PO DAILY #90 tabs 06/23/23 02/04/24 Rx mg-hydrochlorothiazide 25 mg tablet atorvastatin 80 mg tablet 80 mg PO HS #90 tabs 07/07/23 02/04/24 Rx blood sugar diagnostic (OneTouch #100 ea 07/07/23 02/04/24 Rx Verio test strips) blood-glucose meter #1 ea 07/07/23 02/04/24 Rx lancets 33 gauge #100 ea 07/07/23 02/04/24 Rx carvedilol 6.25 mg tablet (Coreg) 6.25 mg PO BID #180 tabs 08/04/23 02/04/24 Rx fenofibrate nanocrystallized 145 145 mg PO DAILY #90 tabs 08/05/23 02/04/24 Rx mg tablet semaglutide 0.25 mg or 0.5 mg (2 0.25 mg (0.368 mL) SQ WEEKLY 30 10/27/23 02/04/24 Rx mg/3 mL) subcutaneous pen injector days #1.84 mL (Ozempic) losartan 100 100 01/21/24 01/21/24 History mg-hydrochlorothiazide 25 mg tablet semaglutide 0.25 mg or 0.5 mg (2 2 mg SQ DIRECTED 01/21/24 02/04/24 History mg/3 mL) subcutaneous pen injector (Ozempic) New Prescriptions to Start Prescriptions: Allergies Allergy/AdvReac Type Severity Reaction Status Date / Time No Known Allergies Allergy Verified 01/21/24 15:53 Assessment and Plan *Assessment and plan (1) Piriformis syndrome of right side: Status: Acute Category: Medical Code(s): G57.01 - Lesion of sciatic nerve, right lower limb Plan Patient has continued to get significant relief following his piriformis injection and does not require any additional injection therapy. Patient will return to clinic in 3 months for reevaluation of symptoms and plan of care. Patient has been instructed to contact the clinic with any concerns before the next appointment. Dr. Montgomery has reviewed this note and agrees with this plan of care. This note was dictated using voice recognition software and make contain errors or omissions. All injections are used with Lidocaine or Bupivacaine and Depo Medrol.
== END 2024-02-04 23:59 | disposition home or self-care (01) ==
LOC: SC.PAIN 15:20
PROVIDERS: PCP Nurse Practitioner Family; Visit Provider Nurse Practitioner Family
DX: G57.01 Lesion of sciatic nerve, right lower limb (principal)
CPT/HCPCS: 99212; G0463

== ENCOUNTER 2024-03-09 11:50 | Day surgery (SDC) | payer BC, SELFPAY ==
[2024-03-09 11:55] VITALS: BP 137/86; PULSE 60; RESP 16; TEMP 36.3; O2SAT 97; BMI 38.4
[2024-03-09 12:12] VITALS: BP 147/88; PULSE 73; RESP 18; O2SAT 95
[2024-03-09] MEDS: LIDOCAINE 1% 5ML PF VIAL 5 ML (12:12)
[2024-03-09] MEDS: BUPIVACAINE 0.25% 10ML INJ 25 MG IJ (12:12)
[2024-03-09] MEDS: methylPREDNISolone ACETATE 80MG/ML VIAL 80 MG (12:12)
[2024-03-09 12:14] VITALS: BP 147/88; PULSE 73; RESP 18; O2SAT 95
[2024-03-09] MEDS: IOPAMIDOL-200 (41%);10ML VIAL 10 ML IV (12:14)
[2024-03-09 12:18] VITALS: BP 131/86; PULSE 71; O2SAT 96
--- NOTE | 2024-03-09 12:34 | EXP.PAIN.PRO ---
Procedure Date: 03/09/24 Time: 12:10 Anesthesiologist:: Charles Vaz CRNA Complications:: None Pre-procedure Diagnosis:: Right piriformis syndrome Post-procedure Diagnosis:: Same Indications for Procedure:: Patient is a pleasant 48-year-old male who comes to our clinic today for repeat right piriformis injection. Patient describes right buttock pain as constant, dull, aching. Sitting intensifies pain significantly. He rates his pain 8/10. Procedure Details:: LateralDetails of the procedure explained to the patient. The patient taken procedure room placed in the prone position on fluoroscopy table. The area over the right buttock was cleaned using chlorhexidine as a cleansing solution. Using fluoroscopy guidance a 22-gauge 3 and half inch spinal needle was used to access the right piriformis muscle. Needle position was confirmed using 0.5 mL of contrast dye spread. After negative aspiration, patient was injected with 2 cc of 0.25% Marcaine +2 cc 1% lidocaine and 40 mg of Depo-Medrol. Patient tolerated procedure without difficulty. There are no complications. Plan and Disposition:: Patient was discharged without incident.
== END 2024-03-09 12:18 | disposition home or self-care (01) ==
LOC: SC.PAINP 11:51
PROVIDERS: PCP Nurse Practitioner Family; Visit Provider Nurse Practitioner Family
DX: G57.01 Lesion of sciatic nerve, right lower limb (principal)
CPT/HCPCS: 20552; 77002; J1010; Q9966

== ENCOUNTER 2024-05-17 15:38 | Outpatient (CLI) | payer OTHER, SELFPAY ==
[2024-05-17 15:49] LABS: Microscopic, Urine URINE MICROSCOPIC (MICROSCOPIC)
[2024-05-17 16:01] LABS: Basophils # 0.1 K/mm3 (0-0.2); Basophils % 1.1 % (0.1-2.0); Eosinophils % 10.8 % (0.1-12.0); Hematocrit 41.3 % (42.0-52.0); Hemoglobin 14.3 g/dL (14.1-18.0); Lymphocytes # 2.5 K/mm3 (0.7-4.5); Lymphocytes % 27.6 % (10-50); Mean Corpuscular HGB Conc 34.6 g/dL (31.8-35.4); Mean Corpuscular Hemoglobin 28.5 pg (27.0-31.2); Mean Corpuscular Volume 82.3 fl (80-94); Mean Platelet Volume 10.5 fl (7.4-10.4); Monocytes # 0.6 K/mm3 (0.1-1.0); Monocytes % 6.1 % (1.7-9.3); Neutrophils # 4.9 K/mm3 (1.8-7.8); Neutrophils % 53.7 % (37.0-80.0); Platelet Count 220 K/mm3 (142-424); Red Blood Count 5.02 M/mm3 (4.60-6.20); Red Cell Distribution Width 12.8 % (11.5-17.5); White Blood Count 9.2 K/mm3 (4.8-10.8)
[2024-05-17 16:35] LABS: Appearance,Urine CLEAR (Clear); Bilirubin,Urine Negative (Negative); Blood, Urine Negative (Negative); Color,Urine YELLOW (Yellow); Glucose,Urine (UA) Negative (Negative); Ketones,Urine Negative (Negative); Leukocyte Esterase,Urine Negative (Negative); Nitrate,Urine Negative (Negative); Protein,Urine Negative (Negative); Specific Gravity, Urine >= 1.030 (1.005-1.030); Urobilinogen,Urine 0.2 EU/dl (0.2)
[2024-05-17 16:38] LABS: Hemoglobin A1C 6.5 % (4.0-6.0)
[2024-05-17 17:16] LABS: Blood Urea Nitrogen 21 mg/dl (9-20); Calcium 10.4 mg/dl (8.4-10.2); Carbon Dioxide 30 mmol/L (22.0-30.0); Chloride 103 mmol/L (98-107); Creatinine,Urine Random 152 mg/dL (Not Estab.); Estimated Glomerular Filt Rate 43 ml/min (>60); GFR (African American) 53 ML/MIN (>60); Glucose 147 mg/dl (74-100); Sodium 142 mmol/L (136-145)
[2024-05-17 17:22] LABS: Phosphorous 4.4 mg/dl (2.5-4.5)
[2024-05-17 17:33] LABS: 25-OH Vitamin D, Total 31.4 ng/mL (30-100)
[2024-05-17 17:57] LABS: WBC,Urine Occasional #/hpf (0-3)
[2024-05-17 19:01] LABS: Albumin Level 4.7 g/dl (3.5-5.0)
[2024-05-17 19:16] LABS: Intact Parathyroid Hormone 25.8 pg/mL (7.5-53.5)
[2024-05-17 19:54] LABS: HIV Combo NEGATIVE (Negative)
[2024-05-17 19:58] LABS: Hepatitis C Ab Qual. W/ RFX NEGATIVE (Negative)
== END 2024-05-17 23:59 | disposition home or self-care (01) ==
LOC: LAB 15:42
PROVIDERS: Student in an Organized Health Care Education/Training Program; PCP Nurse Practitioner Family; Visit Provider Nurse Practitioner Family
DX: E11.9 Type 2 diabetes mellitus without complications (principal); Z11.4 Encounter for screening for human immunodeficiency virus [HIV]; Z11.59 Encounter for screening for other viral diseases; N17.9 Acute kidney failure, unspecified; Z79.85 Long-term (current) use of injectable non-insulin antidiabetic drugs
CPT/HCPCS: 36415; 80069; 81001; 82043; 82306; 82570; 83036; 83970; 84156; 85025; 86803; 87389

== ENCOUNTER 2024-05-31 14:05 | Outpatient (CLI) | payer OTHER, SELFPAY ==
[2024-05-31 16:53] LABS: Coronavirus 19, PCR Not Detected (NotDetected); Human Rhinovirus Not Detected (NotDetected); Influenza B, PCR Not Detected (NotDetected); Respiratory Syncytial Virus Not Detected (NotDetected)
[2024-06-01 08:32] LABS: Influenza A, PCR Detected (NotDetected)
== END 2024-05-31 23:59 | disposition home or self-care (01) ==
LOC: LAB.DROPOF 06-01 09:52
PROVIDERS: PCP Nurse Practitioner Family; Visit Provider Nurse Practitioner Family
DX: J10.1 Influenza due to other identified influenza virus with other respiratory manifestations (principal); R51.9 Headache, unspecified
CPT/HCPCS: 87631

== ENCOUNTER 2024-06-11 15:28 | Outpatient (POV) | payer OTHER, SELFPAY ==
[2024-06-11 15:30] VITALS: BP 164/115; PULSE 77; RESP 16; TEMP 36.6; O2SAT 97; BMI 36.9
--- NOTE | 2024-06-11 15:30 | PC.NURSE ---
provider notified of patient's blood pressure. provider instructed pt to recheck b/p at home and f/u with pcp if continued elevated b/p. pt asymptomatic. denies headache. a&o.
--- NOTE | 2024-06-11 15:36 | A.OFFVIS_ITS ---
[facility] Disclaimer: The information contained in this section may have been updated after the patient was seen, as this information can be updated by other users. Medical History Fatty liver Encounter for screening for diabetes mellitus Thyroid cancer 2017 Right knee meniscal tear REPAIRED IN SX. Bulging disc Hypothyroid Gout HTN (hypertension) Enthesopathy of left ankle History of fracture of left ankle Left Achilles bursitis Achilles bursitis of left lower extremity Chronic pain of left ankle Achilles tendinitis Exposure to COVID-19 virus Surgical History H/O thyroidectomy 02/2018, Dr. Devries H/O repair of rotator cuff LEFT Family History Other No significant family history Social History Smoking Status: Never smoker alcohol intake: never substance use type: denies use current occupational status: other Travel in the last 8 weeks: None household members: spouse housing: house marital status: PM Subjective & Objective Subjective Subjective:: Patient is a pleasant 49-year-old male who presents today for worsening pain. Today he rates his pain a 5 out of 10. He denies any new falls or injuries. He does state that his pain is officially back there in the right piriformis muscle. Patient did previously have an injection back in February that did provide 75% improvement and lasted longer than 3 months. Patient does describe it as an aching, throbbing sensation that is worse with increased activity or movement. He states that the pain is interfering with his ability perform activities of daily living such as cooking and cleaning. Patient is interested in repeat injection because it did provide such significant improvement with improved overall function. His Jorge L has been reviewed and is appropriate. Review of Systems: General: No recent weight changes, no fever, no sleep disturbances Respiratory: No cough, no shortness of air, no recurring pulmonary infections Cardiovascular/peripheral vascular: No chest pain, no palpitations, no edema, no shortness of breath Gastrointestinal: No new onset incontinence, normal bowel movements reported Genitourinary: No new onset incontinence Musculoskeletal: Right buttocks pain Psychiatric: [Normal mood/affect] Neurological: [Denies weakness in extremities], [denies balance issues] Pain at rest (0-10 scale): 5 Objective Objective:: Physical Exam: General: Alert and oriented x3, no acute distress, pleasant and cooperative Lungs: Respirations even and unlabored, symmetrical chest expansion Eyes: PERRL Musculoskeletal: Flexion and extension of lumbar [spine] somewhat guarded secondary to pain, [antalgic gait noted]point tenderness along right piriformis muscle Neurological: Speech clear, no gross sensory deficit Has patient had previous pain injection?: No Conservative treatment options previously tried: Home exercise plan Length of treatment: Than 12 weeks Meds Home Medications and Allergies Home Medications ?Medication ?Instructions ?Recorded ?Confirmed ?Type duloxetine 30 mg capsule,delayed 30 mg PO BID #60 caps 06/18/23 05/31/24 Rx release levothyroxine 175 mcg tablet 175 mcg PO DAILY #90 tabs 06/23/23 05/31/24 Rx losartan 100 1 tab PO DAILY #90 tabs 06/23/23 05/31/24 Rx mg-hydrochlorothiazide 25 mg tablet atorvastatin 80 mg tablet 80 mg PO HS #90 tabs 07/07/23 05/31/24 Rx blood sugar diagnostic (OneTouch #100 ea 07/07/23 05/31/24 Rx Verio test strips) blood-glucose meter #1 ea 07/07/23 05/31/24 Rx lancets 33 gauge #100 ea 07/07/23 05/31/24 Rx fenofibrate nanocrystallized 145 145 mg PO DAILY #90 tabs 08/05/23 05/31/24 Rx mg tablet ondansetron 4 mg disintegrating 4 mg PO Q8H PRN nausea and 04/29/24 05/31/24 Rx tablet vomiting #30 tabs semaglutide 0.25 mg or 0.5 mg (2 0.5 mg (0.736 mL) SQ WEEKLY #3 mL 05/10/24 05/31/24 Rx mg/3 mL) subcutaneous pen injector (Ozempic) amoxicillin 875 mg tablet 875 mg PO BID 10 days #20 tabs 05/31/24 05/31/24 Rx promethazine-DM 6.25 mg-15 mg/5 mL 5 ml PO Q4-6H PRN cough #118 mL 05/31/24 05/31/24 Rx oral syrup oseltamivir 75 mg capsule (Tamiflu) 75 mg PO BID 5 days #10 caps 06/01/24 Rx New Prescriptions to Start Prescriptions: Allergies Allergy/AdvReac Type Severity Reaction Status Date / Time No Known Allergies Allergy Verified 05/31/24 13:35 Assessment and Plan *Assessment and plan (1) Piriformis syndrome of right side: Status: Acute Category: Medical Code(s): G57.01 - Lesion of sciatic nerve, right lower limb (2) Myofascial pain on right side: Status: Acute Category: Medical Code(s): M79.18 - Myalgia, other site Plan Patient is experiencing worsening pain in his right buttocks along the right piriformis muscle with point tenderness with palpation. Patient did previously have a right piriformis injection back in February that did provide 75% improvement in his lasted up until about the last week or so. Patient states the pain is progressively worsening and he is noticing it more on a regular basis. Patient did have significantly improved function with overall decreased pain and has continued conservative treatment including continued at home stretching exercise for longer than 12 weeks between injections. Patient will be scheduled for a repeat right piriformis muscle injection. This injection will be done without fluoroscopic guidance or ultrasound. Patient has been instructed to contact the clinic with any concerns before the next appointment. Dr. Montgomery has reviewed this note and agrees with this plan of care. This note was dictated using voice recognition software and make contain errors or omissions. All injections are used with Lidocaine, Bupivacaine and Depo Medrol. Occasionally urine drug screen is needed to verify patient's compliance with our office pain contract. This is ordered based off specific treatments related to chronic pain with the potential to abuse certain medications.
== END 2024-06-11 23:59 | disposition home or self-care (01) ==
LOC: SC.PAIN 15:29
PROVIDERS: PCP Nurse Practitioner Family; Visit Provider Nurse Practitioner Family
DX: G57.01 Lesion of sciatic nerve, right lower limb (principal); M79.18 Myalgia, other site; Z73.89 Other problems related to life management difficulty; Z79.85 Long-term (current) use of injectable non-insulin antidiabetic drugs
CPT/HCPCS: 99212; G0463

== ENCOUNTER 2024-06-28 09:52 | Outpatient (POV) | payer OTHER, SELFPAY ==
--- NOTE | 2024-06-28 10:12 | EXP.PAIN.SOA ---
[facility] Disclaimer: The information contained in this section may have been updated after the patient was seen, as this information can be updated by other users. Medical History Fatty liver Encounter for screening for diabetes mellitus Thyroid cancer 2017 Right knee meniscal tear REPAIRED IN SX. Bulging disc Hypothyroid Gout HTN (hypertension) Enthesopathy of left ankle History of fracture of left ankle Left Achilles bursitis Achilles bursitis of left lower extremity Chronic pain of left ankle Achilles tendinitis Exposure to COVID-19 virus Surgical History H/O thyroidectomy 02/2018, Dr. Devries H/O repair of rotator cuff LEFT Family History Other No significant family history Social History Smoking Status: Never smoker alcohol intake: never substance use type: denies use current occupational status: other Travel in the last 8 weeks: None household members: spouse housing: house marital status: Have you lived/traveled outside [place] in past 30 days?: No Contact w/someone who lives/traveled outside [place] past 30 days?: No Exposure to someone with infectious disease in past 14 days?: No Do you have a fever (greater than 100.4 F or 38 C)?: No Have you tested positive for COVID-19: No Exposed to someone with COVID-19 in past 14 days?: No Do you have a sore throat?: No Do you have a cough?: No Do you have any weakness?: No Do you have any diarrhea?: No Are you experiencing any unusual bleeding?: No Do you have any muscle aches/pain?: No Do you have any abdominal pain?: No Are you experiencing loss of taste or smell?: No PM Subjective & Objective Subjective Subjective:: Patient is a pleasant 49-year-old male who presents today for worsening pain in and around his low back along the right side and into his buttocks. He denies any new trauma or injury. He does state that it does seem to be the same pain that he has had in the past. Patient is already scheduled for an injection next Elisabet with our office. He states that his primary care was recommending him see our office first to see if there is something additional we can do. Patient does state that the pain seem to be aggravated when he was moving wood about a week ago. He denies any other changes. His Jorge L has been reviewed and is appropriate. Review of Systems: General: No recent weight changes, no fever, no sleep disturbances Respiratory: No cough, no shortness of air, no recurring pulmonary infections Cardiovascular/peripheral vascular: No chest pain, no palpitations, no edema, no shortness of breath Gastrointestinal: No new onset incontinence, normal bowel movements reported Genitourinary: No new onset incontinence Musculoskeletal: Right buttocks pain Psychiatric: [Normal mood/affect] Neurological: [Denies weakness in extremities], [denies balance issues] Pain at rest (0-10 scale): 9 Objective Objective:: Physical Exam: General: Alert and oriented x3, no acute distress, pleasant and cooperative Lungs: Respirations even and unlabored, symmetrical chest expansion Eyes: PERRL Musculoskeletal: Flexion and extension of lumbar [spine] somewhat guarded secondary to pain, [antalgic gait noted] point tenderness along the right piriformis Neurological: Speech clear, no gross sensory deficit Has patient had previous pain injection?: No Conservative treatment options previously tried: Home exercise plan Length of treatment: Longer than 12 weeks Meds Home Medications and Allergies Home Medications ?Medication ?Instructions ?Recorded ?Confirmed ?Type duloxetine 30 mg capsule,delayed 30 mg PO BID #60 caps 06/18/23 06/11/24 Rx release losartan 100 1 tab PO DAILY #90 tabs 06/23/23 06/11/24 Rx mg-hydrochlorothiazide 25 mg tablet atorvastatin 80 mg tablet 80 mg PO HS #90 tabs 07/07/23 06/11/24 Rx blood sugar diagnostic (OneTouch #100 ea 07/07/23 06/11/24 Rx Verio test strips) blood-glucose meter #1 ea 07/07/23 06/11/24 Rx lancets 33 gauge #100 ea 07/07/23 06/11/24 Rx fenofibrate nanocrystallized 145 145 mg PO DAILY #90 tabs 08/05/23 06/11/24 Rx mg tablet ondansetron 4 mg disintegrating 4 mg PO Q8H PRN nausea and 01/09/25 02/21/25 Rx tablet vomiting #30 tabs semaglutide 0.25 mg or 0.5 mg (2 0.5 mg (0.736 mL) SQ WEEKLY #3 mL 05/10/24 06/11/24 Rx mg/3 mL) subcutaneous pen injector (Ozempic) amoxicillin 875 mg tablet 875 mg PO BID 10 days #20 tabs 05/31/24 06/11/24 Rx oseltamivir 75 mg capsule (Tamiflu) 75 mg PO BID 5 days #10 caps 06/01/24 06/11/24 Rx promethazine-DM 6.25 mg-15 mg/5 mL 5 ml PO Q4-6H PRN cough #118 mL 06/25/24 Rx oral syrup levothyroxine 175 mcg tablet See Rx Instructions .Route 06/26/24 Rx .COMPLEX #90 tabs prednisone 20 mg tablet 20 mg PO BID #10 tabs 06/28/24 Rx New Prescriptions to Start Prescriptions: prednisone Denae Coughlin Allergies Allergy/AdvReac Type Severity Reaction Status Date / Time No Known Allergies Allergy Verified 05/31/24 13:35 Assessment and Plan *Assessment and plan (1) Piriformis syndrome of right side: Status: Acute Category: Medical Code(s): G57.01 - Lesion of sciatic nerve, right lower limb (2) Myofascial pain on right side: Status: Acute Category: Medical Code(s): M79.18 - Myalgia, other site Plan I did discuss with the patient that I do believe he is still scheduled for the right injection related to his worsening pain today. Patient denies any recent oral steroid use. I will send in a 5-day dose of prednisone 20 mg twice daily. Patient will follow-up in clinic next Friday for his right piriformis injection. Patient agrees with this plan of care. Patient has been instructed to contact the clinic with any concerns before the next appointment. Dr. Montgomery has reviewed this note and agrees with this plan of care. This note was dictated using voice recognition software and make contain errors or omissions. All injections are used with Lidocaine, Bupivacaine and Depo Medrol. Occasionally urine drug screen is needed to verify patient's compliance with our office pain contract. This is ordered based off specific treatments related to chronic pain with the potential to abuse certain medications.
[2024-06-28 10:24] VITALS: BP 144/94; PULSE 72; RESP 18; O2SAT 97; BMI 39.1
== END 2024-06-28 23:59 | disposition home or self-care (01) ==
PROVIDERS: PCP Nurse Practitioner Family; Visit Provider Nurse Practitioner Family
DX: G57.01 Lesion of sciatic nerve, right lower limb (principal); M79.18 Myalgia, other site; Z79.85 Long-term (current) use of injectable non-insulin antidiabetic drugs
CPT/HCPCS: 99212; G0463

== ENCOUNTER 2024-07-06 14:09 | Day surgery (SDC) | payer OTHER, SELFPAY ==
[2024-07-06 14:12] VITALS: BP 149/98; PULSE 68; RESP 16; TEMP 36.4; O2SAT 98; BMI 37.6
[2024-07-06] MEDS: IOPAMIDOL-200 (41%);10ML VIAL 2 ML IV (14:44)
[2024-07-06 14:45] VITALS: BP 146/88; PULSE 67; RESP 16; O2SAT 97
[2024-07-06 14:53] VITALS: BP 150/99; PULSE 79; RESP 18; O2SAT 97
[2024-07-06 14:55] VITALS: BP 150/99; PULSE 79; RESP 18; O2SAT 97
--- NOTE | 2024-07-06 14:59 | EXP.PAIN.PRO ---
Procedure Date: 07/06/24 Time: 14:40 Anesthesiologist:: Charles Vaz CRNA Complications:: None Pre-procedure Diagnosis:: Right piriformis syndrome Post-procedure Diagnosis:: Same Indications for Procedure:: Patient is a pleasant 49-year-old male who comes our clinic today for right piriformis injection of cortisone and local anesthetic. Patient describes right buttock pain and right posterior hip pain is constant, dull, aching. Pain intensifies with sitting. Pain intensifies with ambulation. He rates his pain 7/10. Procedure Details:: Details of the procedure explained to the patient. The patient was placed in the prone position on fluoroscopy table. The area over the right buttock was cleaned using chlorhexidine as a cleansing solution. Using a 22-gauge 3 and half inch spinal needle the right piriformis muscle was accessed with ease using fluoroscopy guidance. Needle position was confirmed using 0.5 mL of contrast dye and a lateral spread. At this time after negative aspiration 3 cc 1% lidocaine +2 cc 0.25% Marcaine and 40 mg of Depo-Medrol was injected. Patient tolerated procedure without difficulty. There are no complications. Plan and Disposition:: Patient was discharged without incident.
== END 2024-07-06 14:45 | disposition home or self-care (01) ==
LOC: SC.PAINP 14:10
PROVIDERS: PCP Nurse Practitioner Family; Visit Provider Nurse Anesthetist, Certified Registered
DX: G57.01 Lesion of sciatic nerve, right lower limb (principal)
CPT/HCPCS: 20552; 77002; J1010; Q9966

== ENCOUNTER 2024-07-26 15:17 | Outpatient (POV) | payer OTHER, SELFPAY ==
--- NOTE | 2024-07-26 15:56 | A.OFFVIS_ITS ---
[facility] Disclaimer: The information contained in this section may have been updated after the patient was seen, as this information can be updated by other users. Medical History Screening for HIV (human immunodeficiency virus) Encounter for hepatitis C screening test for low risk patient Bilateral otitis media Influenza A Fatty liver Encounter for screening for diabetes mellitus Thyroid cancer Right knee meniscal tear Bulging disc Hypothyroid Gout HTN (hypertension) Enthesopathy of left ankle History of fracture of left ankle Left Achilles bursitis Achilles bursitis of left lower extremity Chronic pain of left ankle Achilles tendinitis Exposure to COVID-19 virus Surgical History H/O thyroidectomy H/O repair of rotator cuff Family History Other No significant family history Social History Smoking Status: Never smoker alcohol intake: never substance use type: denies use current occupational status: employed Travel in the last 8 weeks: None household members: spouse housing: house marital status: PM Subjective & Objective Subjective Subjective:: Patient is a pleasant 49-year-old male who presents today for follow-up of right piriformis injection on 07/06/2024. Today he does rate his pain at a 3 out of 10. He denies any new trauma or injury. He does state that this injection did seem like it took longer to kick in. He states overall today seems like really the first day that it has done well. He writes at least 50% improvement. Patient denies any new falls or injuries. He does states the other day he was up in his attic for hours where he was down on his knees and felt like this did aggravate his overall back pain. His Jorge L has been reviewed and is appropriate. He is prescribed compounded cream. Review of Systems: General: No recent weight changes, no fever, no sleep disturbances Respiratory: No cough, no shortness of air, no recurring pulmonary infections Cardiovascular/peripheral vascular: No chest pain, no palpitations, no edema, no shortness of breath Gastrointestinal: No new onset incontinence, normal bowel movements reported Genitourinary: No new onset incontinence Musculoskeletal: Low back pain Psychiatric: [Normal mood/affect] Neurological: [Denies weakness in extremities], [denies balance issues] Pain at rest (0-10 scale): 3 Objective Objective:: Physical Exam: General: Alert and oriented x3, no acute distress, pleasant and cooperative Lungs: Respirations even and unlabored, symmetrical chest expansion Eyes: PERRL Musculoskeletal: Flexion and extension of lumbar [spine] somewhat guarded secondary to pain Neurological: Speech clear, no gross sensory deficit Has patient had previous pain injection?: Yes Percent improvement in pain since last injection: 50% Conservative treatment options previously tried: Home exercise plan Length of treatment: Longer than 12 weeks Meds Home Medications and Allergies Home Medications ?Medication ?Instructions ?Recorded ?Confirmed ?Type duloxetine 30 mg capsule,delayed 30 mg PO BID #60 caps 06/18/23 07/06/24 Rx release losartan 100 1 tab PO DAILY #90 tabs 06/23/23 07/06/24 Rx mg-hydrochlorothiazide 25 mg tablet atorvastatin 80 mg tablet 80 mg PO HS #90 tabs 07/07/23 07/06/24 Rx blood sugar diagnostic (OneTouch #100 ea 07/07/23 07/06/24 Rx Verio test strips) blood-glucose meter #1 ea 07/07/23 07/06/24 Rx lancets 33 gauge #100 ea 07/07/23 07/06/24 Rx fenofibrate nanocrystallized 145 145 mg PO DAILY #90 tabs 08/05/23 07/06/24 Rx mg tablet ondansetron 4 mg disintegrating 4 mg PO Q8H PRN nausea and 04/29/24 07/06/24 Rx tablet vomiting #30 tabs semaglutide 0.25 mg or 0.5 mg (2 0.5 mg (0.736 mL) SQ WEEKLY #3 mL 05/10/24 07/06/24 Rx mg/3 mL) subcutaneous pen injector (Ozempic) levothyroxine 175 mcg tablet See Rx Instructions .Route 06/26/24 07/06/24 Rx .COMPLEX #90 tabs prednisone 20 mg tablet 20 mg PO BID #10 tabs 06/28/24 07/06/24 Rx New Prescriptions to Start Prescriptions: Allergies Allergy/AdvReac Type Severity Reaction Status Date / Time No Known Allergies Allergy Verified 06/28/24 15:33 Assessment and Plan *Assessment and plan (1) Piriformis syndrome of right side: Status: Acute Category: Medical Code(s): G57.01 - Lesion of sciatic nerve, right lower limb Plan Patient has had significant improvement following his piriformis injection. I did discuss with the patient due to the fact that he just now feels like it kicked in more that I will give him a 2-week follow-up as a precaution however if he still feels like the injection is working well he can call and cancel this and push out his follow-up for another month. Patient agrees with this plan of care. I did also discuss with the patient that I will reach out to the compound pharmacy and increase the concentration of his compounded cream. Patient has been instructed to contact the clinic with any concerns before the next appointment. Dr. Montgomery has reviewed this note and agrees with this plan of care. This note was dictated using voice recognition software and make contain errors or omissions. All injections are used with Lidocaine, Bupivacaine and Depo Medrol. Occasionally urine drug screen is needed to verify patient's compliance with our office pain contract. This is ordered based off specific treatments related to chronic pain with the potential to abuse certain medications.
[2024-07-26 16:13] VITALS: BP 139/82; BP 155/93; RESP 16; O2SAT 97; BMI 38.4
== END 2024-07-26 23:59 | disposition home or self-care (01) ==
LOC: SC.PAIN 15:18
PROVIDERS: PCP Nurse Practitioner Family; Visit Provider Nurse Practitioner Family
DX: G57.01 Lesion of sciatic nerve, right lower limb (principal); Z79.85 Long-term (current) use of injectable non-insulin antidiabetic drugs
CPT/HCPCS: 99212; G0463

== ENCOUNTER 2024-08-09 15:03 | Outpatient (POV) | payer OTHER, SELFPAY ==
--- NOTE | 2024-08-09 15:37 | A.OFFVIS_ITS ---
[facility] Disclaimer: The information contained in this section may have been updated after the patient was seen, as this information can be updated by other users. Medical History (Updated 08/09/24 @ 15:39 by Denae Coughlin APRN) Screening for HIV (human immunodeficiency virus) Encounter for hepatitis C screening test for low risk patient Bilateral otitis media Influenza A Fatty liver Encounter for screening for diabetes mellitus Thyroid cancer Right knee meniscal tear Bulging disc Hypothyroid Gout HTN (hypertension) Enthesopathy of left ankle History of fracture of left ankle Left Achilles bursitis Achilles bursitis of left lower extremity Chronic pain of left ankle Achilles tendinitis Exposure to COVID-19 virus Surgical History H/O thyroidectomy H/O repair of rotator cuff Family History Other No significant family history Social History Smoking Status: Never smoker alcohol intake: never substance use type: denies use current occupational status: other Travel in the last 8 weeks: None household members: spouse housing: house marital status: PM Subjective & Objective Subjective Subjective:: Patient is a pleasant 49-year-old male who presents today for worsening pain. Today he rates his pain a 7 out of 10. Patient does state that it still all along the right side but does feel like it is closer to his hip now. Patient states it is tender to touch and does interfere with his ability to perform activities of daily living such as cooking and cleaning. Patient is not interested in additional injection therapy. Patient does have a history of altered kidney function and has been seeing urology here at [facility]. Patient does state that they will be doing updated labs coming up but is asking if there is anything we can send in to help with the pain. Patient is prescribed compounded cream from our office. His Jorge L has been reviewed and is appropriate. Review of Systems: General: No recent weight changes, no fever, no sleep disturbances Respiratory: No cough, no shortness of air, no recurring pulmonary infections Cardiovascular/peripheral vascular: No chest pain, no palpitations, no edema, no shortness of breath Gastrointestinal: No new onset incontinence, normal bowel movements reported Genitourinary: No new onset incontinence Musculoskeletal: Right hip pain Psychiatric: [Normal mood/affect] Neurological: [Denies weakness in extremities], [denies balance issues] Pain at rest (0-10 scale): 7 Objective Objective:: Physical Exam: General: Alert and oriented x3, no acute distress, pleasant and cooperative Lungs: Respirations even and unlabored, symmetrical chest expansion Eyes: PERRL Musculoskeletal: Flexion and extension of right hip somewhat guarded secondary to pain, point tenderness along right greater trochanteric bursa Neurological: Speech clear, no gross sensory deficit Has patient had previous pain injection?: No Conservative treatment options previously tried: Home exercise plan Length of treatment: Longer than 12-week Meds Home Medications and Allergies Home Medications ?Medication ?Instructions ?Recorded ?Confirmed ?Type duloxetine 30 mg capsule,delayed 30 mg PO BID #60 caps 06/18/23 07/26/24 Rx release losartan 100 1 tab PO DAILY #90 tabs 06/23/23 07/26/24 Rx mg-hydrochlorothiazide 25 mg tablet atorvastatin 80 mg tablet 80 mg PO HS #90 tabs 07/07/23 07/26/24 Rx blood sugar diagnostic (OneTouch #100 ea 07/07/23 07/26/24 Rx Verio test strips) blood-glucose meter #1 ea 07/07/23 07/26/24 Rx lancets 33 gauge #100 ea 07/07/23 07/26/24 Rx fenofibrate nanocrystallized 145 145 mg PO DAILY #90 tabs 08/05/23 07/26/24 Rx mg tablet ondansetron 4 mg disintegrating 4 mg PO Q8H PRN nausea and 04/29/24 07/26/24 Rx tablet vomiting #30 tabs semaglutide 0.25 mg or 0.5 mg (2 0.5 mg (0.736 mL) SQ WEEKLY #3 mL 05/10/24 07/26/24 Rx mg/3 mL) subcutaneous pen injector (Ozempic) levothyroxine 175 mcg tablet See Rx Instructions .Route 06/26/24 07/26/24 Rx .COMPLEX #90 tabs prednisone 20 mg tablet 20 mg PO BID #10 tabs 06/28/24 07/26/24 Rx cyclobenzaprine 10 mg tablet 10 mg PO TID #42 tabs 08/09/24 Rx New Prescriptions to Start Prescriptions: cyclobenzaprine Coughlin,Denae A Allergies Allergy/AdvReac Type Severity Reaction Status Date / Time No Known Allergies Allergy Verified 06/28/24 15:33 Assessment and Plan *Assessment and plan (1) Greater trochanteric bursitis of right hip: Status: Acute Category: Medical Code(s): M70.61 - Trochanteric bursitis, right hip Plan Patient is experiencing worsening pain in his right hip with limited range of motion and point tenderness along his greater trochanteric bursa. I did discuss with the patient that he may benefit from a bursa injection at this location. Risk and benefits were discussed with the patient and he would like to proceed forward with this plan of care. Patient has tried and failed conservative therapy including continued at home exercising and stretching for longer than 12 weeks. I will send in a 2-week dose of Flexeril 10 mg 3 times daily as needed. Patient will be scheduled for a right greater trochanteric bursa injection under fluoroscopy. Patient has been instructed to contact the clinic with any concerns before the next appointment. Dr. Montgomery has reviewed this note and agrees with this plan of care. This note was dictated using voice recognition software and make contain errors or omissions. All injections are used with Lidocaine, Bupivacaine and Depo Medrol. Occasionally urine drug screen is needed to verify patient's compliance with our office pain contract. This is ordered based off specific treatments related to chronic pain with the potential to abuse certain medications.
== END 2024-08-09 23:59 | disposition home or self-care (01) ==
PROVIDERS: PCP Nurse Practitioner Family; Visit Provider Nurse Practitioner Family
DX: M70.61 Trochanteric bursitis, right hip (principal); Z73.89 Other problems related to life management difficulty
CPT/HCPCS: 99212; G0463

== ENCOUNTER 2024-08-20 15:02 | Outpatient (CLI) | payer OTHER, SELFPAY ==
[2024-08-20 15:09] LABS: Microscopic, Urine URINE MICROSCOPIC (MICROSCOPIC)
[2024-08-20 15:31] LABS: Hematocrit 38.1 % (42.0-52.0); Hemoglobin 13.6 g/dL (14.1-18.0); Mean Corpuscular HGB Conc 35.7 g/dL (31.8-35.4); Mean Corpuscular Hemoglobin 29.6 pg (27.0-31.2); Mean Corpuscular Volume 82.8 fl (80-94); Nucleated Red Blood Cells # 0 10^3/uL; Nucleated Red Blood Cells % 0 %; Platelet Count 237 K/mm3 (142-424); Red Cell Distribution Width 12.6 % (11.5-17.5); Red Cell Distribution Width-SD 37.7 fL; White Blood Count 7.1 K/mm3 (4.8-10.8)
[2024-08-20 15:44] LABS: Appearance,Urine CLEAR (Clear); Bilirubin,Urine Negative (Negative); Blood, Urine Negative (Negative); Color,Urine YELLOW (Yellow); Glucose,Urine (UA) Negative (Negative); Ketones,Urine Negative (Negative); Leukocyte Esterase,Urine Negative (Negative); Nitrate,Urine Negative (Negative); PH,Urine 5.5 (5.0-8.5); Protein,Urine Negative (Negative); Urobilinogen,Urine 0.2 EU/dl (0.2)
[2024-08-20 15:49] LABS: Specific Gravity, Urine 1.027 (1.005-1.030)
[2024-08-20 15:50] LABS: Total Protein,Urine Random < 5.0 mg/dL (0.0-12.0)
[2024-08-20 16:00] LABS: Creatinine,Urine Random 228 mg/dL (Not Estab.)
[2024-08-20 16:10] LABS: WBC,Urine Occasional #/hpf (0-3)
[2024-08-23 14:19] LABS: Albumin Level 4.6 g/dl (3.5-5.0); Chloride 111 mmol/L (98-107); Sodium 142 mmol/L (136-145)
[2024-08-23 14:22] LABS: Blood Urea Nitrogen 21 mg/dl (9-20); Carbon Dioxide 24 mmol/L (22.0-30.0); Estimated Glomerular Filt Rate 47 ml/min (>60); GFR (African American) 56 ML/MIN (>60)
[2024-08-23 14:23] LABS: Calcium 9.6 mg/dl (8.4-10.2); Glucose 103 mg/dl (74-100); Phosphorous 3.6 mg/dl (2.5-4.5)
== END 2024-08-20 23:59 | disposition home or self-care (01) ==
LOC: LAB 15:05
PROVIDERS: PCP Nurse Practitioner Family; Visit Provider Student in an Organized Health Care Education/Training Program
DX: N17.9 Acute kidney failure, unspecified (principal)
CPT/HCPCS: 36415; 80069; 81001; 82043; 82570; 84156; 85027

== ENCOUNTER 2024-09-07 14:22 | Day surgery (SDC) | payer OTHER, SELFPAY ==
[2024-09-07 14:30] VITALS: BP 124/80; PULSE 83; RESP 16; TEMP 36.8; O2SAT 95; BMI 38.4
[2024-09-07] MEDS: DEXAMETHASONE 10MG/ML 1ML VIAL 10 MG (14:42)
[2024-09-07 14:43] VITALS: BP 125/72; PULSE 65; RESP 18; O2SAT 99
[2024-09-07] MEDS: BUPIVACAINE 0.25% 10ML INJ 25 MG IJ (14:43)
--- NOTE | 2024-09-07 14:43 | P.PCN_ITS ---
Procedure Date: 09/07/24 Time: 14:50 Anesthesiologist:: Charles Vaz CRNA Complications:: None Pre-procedure Diagnosis:: Right trochanteric bursitis Post-procedure Diagnosis:: Same Indications for Procedure:: Patient is a very pleasant 49-year-old male who comes our clinic today for right trochanteric bursa injection of cortisone local anesthetic. Patient describes right lateral hip pain as well as posterior hip pain on the right that is constant, dull, aching. He is responded well to piriformis injections on that same side in the past. However his pain is moved a little more to the lateral area. This is why we are going with the trochanteric bursa injection today. He rates his pain 7/10. Procedure Details:: Procedure: Right trochanteric bursa injection under fluoroscopy We then moved to the right trochanteric bursa.~ C-arm fluoroscopy was used to view the left greater trochanter.~ The skin and subcutaneous tissues overlying the right greater trochanter were anesthetized using lidocaine, 1.5% and a 25- gauge needle.~ After this, a 22-gauge spinal needle was inserted and advanced until it contacted the right greater trochanter.~ Dye was injected and good spread was seen throughout the right trochanteric bursa. After this, approximately 5 mL of bupivacaine, 0.25% and Depo-Medrol, 40 mg was incrementally injected into the right right trochanteric bursa.~ The patient tolerated the procedure well with no complications. Plan and Disposition:: Patient was discharged without incident.
[2024-09-07 14:44] VITALS: BP 125/72; PULSE 65; RESP 18; O2SAT 99
[2024-09-07 14:48] VITALS: BP 127/75; PULSE 64; RESP 16; O2SAT 96
== END 2024-09-07 14:48 | disposition home or self-care (01) ==
PROVIDERS: PCP Nurse Practitioner Family; Visit Provider Nurse Anesthetist, Certified Registered
DX: M70.61 Trochanteric bursitis, right hip (principal)
CPT/HCPCS: 20610; 77002; J1100

== ENCOUNTER 2024-09-24 15:51 | Outpatient (CLI) | payer OTHER, SELFPAY ==
--- OUTSIDE RECORDS SUMMARY | 2024-09-03 13:20 | XMS_ITS | Encounter Summary ---
Author Organization [facility] Address [address] [place] [address] Care Team Providers Care Comptometer Operator Name Role Phone Isaura Haque APRN Primary Care Provider [phone] Elsy Velez MD Unavailable Reason for Visit * Reason Comments Consult Pt is a 49 year old male that presents to the clinic on this date as a new patient. Pt states he is having back pain at this visit and rates it 06/28. Encounter Details Date Type Department Care Team (Late st Contact Info) Description 09/03/2024 1:20 PM EDT Office Visit [facility] [address] [place] [phone] Faustino Umaña MD [address] [place] [phone] JUDITH (acute kidney injury) (CMS/HCC) (Primary Dx); [...] PM EDT Nephrology Outpatient Clinic Progress note [facility] Patient: Garrett Turcios Primary Care Provider: [...] 80 mg, Nightly Blood Glucose Monitoring Suppl ([employer] Verio Flex System) w/Device kit use as [...] , CAUR , CALCIUMUR , PHOSUR , [id number] , [id number] , CREATUR MBD: No results found for: [...] , LH , PROLACTIN , TSH , [id number] , FREET4 , CORTISOL Las from 11/11/23 [...] year Faustino Umaña MD Division of Nephrology [facility] ORDERS PLACED THIS ENCOUNTER Orders Placed This Encounter Procedures CBC W/O Differential Standing Status: Future Expected Date: 09/03/2025 Expiration Date: 10/08/2025 [facility] Urinalysis with reflex microscopic (Culture NOT Included) Standing Status: Future Expected Date: 09/03/2025 Expiration Date: 10/08/2025 [facility] Vitamin D 25 Hydroxy Standing Status: Future Expected Date: 09/03/2025 Expiration Date: 10/08/[facility] P[facility] Intact Total Standing Status: Future Expected Date: 09/03/2025 Expiration Date: 10/08/2025 [facility] Albumin-creatinine ratio, urine, random Standing Status: Future Expected Date: 09/03/2025 Expiration Date: 10/08/2025 [facility] Protein, Random, Urine with Creatinine Standing Status: Future Expected Date: 09/03/2025 Expiration Date: 10/08/2025 [facility] Renal Function Panel, Plasma Standing Status: Future Expected Date: 09/03/2025 Expiration Date: 10/08/2025 [facility] Problem List Items Addressed This [...] disease, without long-term current use of insulin ([facility]) documented in this encounter Plan of Treatment [...] injury) (CMS/HCC) Stage 3a chronic kidney disease ([facility]) Expected: 09/03/2025 (Approximate), Expires: 10/08/2025 PTH Intact Total Lab Routine JUDITH (acute kidney injury) ([facility]) Stage 3a chronic kidney disease ([facility]/HCC) Expected: 09/03/2025 (Approximate), Expires: 10/08/2025 Albumin-creatinine ratio, urine, random Lab Routine JUDITH (acute kidney injury) ([facility]) Stage 3a chronic kidney disease ([facility]) Expected: 09/03/2025 (Approximate), Expires: 10/08/2025 Protein, Random, Urine with Creatinine Lab Routine JUDITH (acute kidney injury) ([facility]) Stage 3a chronic kidney disease ([facility]) Expected: 09/03/2025 (Approximate), Expires: 10/08/2025 Renal Function Panel, Plasma Lab Routine JUDITH (acute kidney injury) ([facility]) Stage 3a chronic kidney disease ([facility]) Expected: 09/03/2025 (Approximate), Expires: 10/08/2025 documented as of this encounter Visit Diagnoses Diagnosis JUDITH (acute kidney injury) ([facility])- Primary Stage 3a chronic kidney disease ([facility]) DAKOTA (obstructive sleep apnea) Obstructive sleep apnea (adult) (pediatric) Hypertensive chronic kidney disease with stage 1 through stage 4 chronic kidney disease, or unspecified chronic kidney disease Other hyperlipidemia Type 2 diabetes mellitus with chronic kidney disease, without long-term current use of insulin, unspecified CKD stage ([facility]) documented in this encounter Additional Health Concerns Assessment Noted Time PHQ-9 Depression Total Score: 0 05/05/19 25 2:45 PM EST A fall risk assessment has been complete d for the patient 05/05/2024 2:45 PM EST A Body Mass Index follow-up plan has been documented for the patient 09/03/2024 2:10 PM EDT documented as of this encounter Care Teams Comptometer Operator Relationship Specialty Start Date End Date Isaura Haque APRN [address] [place] [address] PCP - General 07/10/23 Elsy Velez MD [address] [place] [phone] Surgeon Neurosurgery 08/12/23 documented as of this encounter
--- OUTSIDE RECORDS SUMMARY | 2024-09-24 15:53 | XMS_ITS | Clinical Summary ---
Author Organization [facility] Address [address] [place] [address] Care Team Providers Care Steamboat Inspector Name Role Phone Isaura Haque APRN Primary Care Provider [phone] Elsy Velez MD Unavailable Allergies No known active allergies Medications atorvastatin (Lipitor) 80 MG tablet Take 1 tablet (80 mg) by mouth every night. 4 Active levothyroxine (Synthroid, Levoxyl) 175 MCG tablet Take 1 tablet (175 mcg) by mouth 1 (one) time each day. 4 Active losartan-hydroCHLOR Othiazide (Hyzaar) 100-25 MG tablet Take 1 tablet by mouth 1 (one) time each day. 4 Active fenofibrate (Tricor) 145 MG tablet Take 1 tablet (145 mg) by mouth 1 (one) time each day. 4 Active Blood Glucose Monitoring Suppl (OneTouch Verio Flex System) w/Device kit use as directed 4 Active ondansetron ODT (Zofran-ODT) 4 MG disintegrating tablet Take 1 tablet (4 mg) by mouth if needed. 5 Active Ozempic, 1 MG/DOSE, 4 MG/3ML solution pen-injector Inject as directed 1 (one) time per week. 4 Active Active Problems Problem Noted Date Diagnosed Date Type 2 diabetes mellitus wit h chronic kidney disease, without long-term current use of insulin 09/03/2024 JUDITH (acute kidney injury) 05/05/2024 Other hyperlipidemia 05/05/2024 Stage 3a chronic kidney disease 05/05/2024 DAKOTA (obstructive sleep apnea) 05/05/2024 Hypertensive chronic kidney disease with stage 1 through stage 4 chronic kidney disease, or unspecified chronic kidney disease 05/05/2024 Encounters Date Type Department Care Team Description 09/03/2024 1:20 PM EDT Office Visit [facility] [address] [place] [phone] Faustino Umaña MD JUDITH (acute kidney injury) ([facility]) (Primary Dx); Stage 3a chronic kidney disease ([facility]); DAKOTA (obstructive sleep apnea); Hypertensive chronic kidney disease with stage 1 through stage 4 chronic kidney disease, or unspecified chronic kidney disease; Other hyperlipidemia; Type 2 diabetes mellitus with chronic kidney disease, without long-term current use of insulin, unspecified CKD stage ([facility]) 09/03/2024 Travel from Last 3 Months Social History Tobacco Use Types Packs/Day Years [...] on file Sexual Orientation Not on file Last Filed Vital Signs Vital Sign Reading Time Taken Comments Blood Pressure 138/78 09/03/2024 1:45 PM EDT Pulse 71 09/03/2024 1:45 PM EDT Temperature 36.6 C (97.8 F) 05/05/2024 2:37 PM EST Respiratory Rate 18 09/03/2024 1:45 PM EDT Oxygen Saturation 98% 09/03/2024 1:45 PM EDT Inhaled Oxygen Concentration - - Weight 101 kg (223 lb) 09/03/2024 1:45 PM EDT Height 175.3 cm (5' 9 ) 09/03/2024 1:45 PM EDT Body Mass Index 32.93 09/03/2024 1:45 PM EDT Plan of Treatment Health Maintenance Due Date Last Done Comments [facility]-Diabetes: Hemoglobin A1C 1977 [facility]-HIV Screening 1977 [facility]-Hepatitis C Screening 1977 [facility]-Infant/Child/Adol SDOH Screenings 1977 [id number] Vaccine (#1) 1982 Diabetes: Dental Exam 1987 [facility]- SDOH Screenings 1995 [facility]-Adult SDOH Screenings 1995 [facility]-DTaP,Tdap,and Td Vaccines (1 - Tdap) 1996 [facility]-Hepatitis B Vaccines (1 of 3 - 19+ 3-dose series) 1996 [facility]-Pneumococcal Vaccine: Pediatrics (0 to 5 Years) and At-Risk Patients (6 to 49 Years) (1 of 2 - PCV) 1996 CT Colonography 2022 Colonoscopy 2022 FIT-DNA 2022 FIT 2022 FOBT 2022 Sigmoidoscopy 2022 [facility]-Colorectal Cancer Screening 2022 [facility]-Influenza Vaccine (Season Ended) 2024 [facility]-Depression Screening 05/05/2025 05/05/2024, 04/21 [facility]-Zoster Vaccines (1 of 2) 2027 [facility]-Obesity Intervention Completed 025, 05/05/2024, 08/12/2023, Additional history exists HPV Vaccines Aged Out No longer eligi ble based on patient's age to complete this topic [facility]-HIB Vaccines Aged Out No longer e ligible based on patient's age to complete this topic [facility]-Hepatitis A Vaccines Aged Out No longer eligible based on patient's age to complete this topic [facility]-IPV Vaccines Aged Out No longer e ligible based on patient's age to complete this topic [facility]-Rotavirus Vaccines Aged Out No lo nger eligible based on patient's age to complete this topic Insurance [place] [id number] [facility] Care Teams Steamboat Inspector Relationship Specialty Start Date End Date Isaura Haque APRN [address] [place] [address] PCP - General 07/10/23 Elsy Velez MD [id number] [place] [address] Surgeon Neurosurgery 08/12/23
--- OUTSIDE RECORDS SUMMARY | 2024-09-24 15:53 | XMS_ITS | Encounter Summary ---
Author Organization Healthcare Address [address] [place] [address] Care Team Providers Care Tools Administrator Name Role Phone Isaura Haque APRN Primary Care Provider [phone] Elsy Velez MD Unavailable Encounter Details Date Type Department Care Team (Late st Contact Info) Description 01/23/2018 Orders Only External Location [address] [place] [address] Provider, External Social History Tobacco Use Types Packs/Day Years Used Date Smoking Tobacco: Never Assessed Sex and Gender Information Value Date Recorded Sex Assigned at Not on file Legal Sex Male 6:49 PM EDT Gender Identity Not on file Sexual Orientation Not on file documented as of this encounter Plan of Treatment Not on file documented as of this encounter Procedures Procedure Name Priority Date/Time Associated Diagnosis Comments MR OUTSIDE IMAGES 01/23/2018 3:01 PM EDT documented in this encounter Results * MR transfer of outside films (01/23/2018 3:01 PM EDT) Anatomical Region Laterality Modality Magnetic Resonan ce 01/23/2018 3:01 PM EDT us External Provider IMG MRI PROCEDURES Final Resul t documented in this encounter Visit Diagnoses Not on filedocumented in this encounter Care Teams Tools Administrator Relationship Specialty Start Date End Date Isaura Haque APRN [address] [place] [address] PCP - General 07/10/23 Elsy Velez MD [address] [place] [address] Surgeon Neurosurgery 08/12/23 documented as of this encounter
--- OUTSIDE RECORDS SUMMARY | 2024-09-24 15:53 | XMS_ITS | Encounter Summary ---
Author Organization Address [address] [place] [address] Care Team Providers Care Project Mgr Name Role Phone Isaura Haque APRN Primary Care Provider [phone] Elsy Velez MD Unavailable Encounter Details Date Type Department Care Team (Latest Contact Info) Description 09/03/2024 Travel Social History Tobacco Use Types Packs/Day Years Used Date Smoking Tobacco: Never Smokeless Tobacco: Never Alcohol Use Standard Drinks/Week Comments Never 0 [...] on file documented as of this encounter Visit Diagnoses Not on filedocumented in this encounter Additional Health Concerns Assessment Noted Time PHQ-9 Depression Total Score: 0 05/05/19 25 2:45 PM EST A fall risk assessment has been complete d for the patient 05/05/2024 2:45 PM EST A Body Mass Index follow-up plan has been documented for the patient 09/03/2024 2:10 PM EDT documented as of this encounter Care Teams Project Mgr Relationship Specialty Start Date End Date Isaura Haque APRN [address] [place] [address] PCP - General 07/10/23 Elsy Velez MD [address] [place] [address] Surgeon Neurosurgery 08/12/23 documented as of this encounter
--- NOTE | 2024-09-24 16:15 | MR_ITS ---
PROCEDURE INFORMATION: Exam: MR Lumbar Spine Without Contrast Exam date and time: 09/24/2024 4:04 PM Age: 49 years old Clinical indication: Low back pain; Additional info: Lumbar spine pain TECHNIQUE: Imaging protocol: Magnetic resonance imaging of the lumbar spine without contrast. COMPARISON: MR LUMBAR SPINE WO CON 06/20/2023 4:12 PM FINDINGS: Bones/joints: The lumbar vertebral bodies are normal in height. Mild retrolisthesis of L5 on S1. Spinal cord: The distal end of the conus medullaris ends at the superior aspect of L2, which is at the low end of normal. Multilevel findings: Degenerative changes are noted at L4-L5 and L5-S1, with a decrease in the T2 signal intensity of the discs, as well as disc bulge/osteophyte complexes. T12-L1: At T12-L1, there is a decrease in disc height with mild Modic endplate change. Disc bulging is seen, without significant spinal canal stenosis. There is no significant neural foraminal narrowing. This level is out of the field of view of axial images, limiting the evaluation. L1-L2: In anterior disc bulge/osteophyte complex is visualized. There is a mild decrease in disc height. There is no significant spinal canal stenosis or neural foraminal narrowing. L2-L3: There is no significant spinal canal stenosis or neural foraminal narrowing. A small anterior disc bulge/osteophyte complex is visualized. Minimal effusion is visualized within the left facet joint. L3-L4: Mild bilateral facet arthropathy. Mild hypertrophy of the ligamentum flavum. No significant spinal canal stenosis is visualized. Mild narrowing the inferior aspect of the left neural foramen. There is no significant narrowing of the right neural foramen. L4-L5: A broad-based disc bulge is visualized, with minimal to mild stable narrowing of the thecal sac. Narrowing of both lateral recesses is identified. Mild right and [id number] left neural foraminal narrowing visualized. An annular tear is seen at the posterior aspect of the disc. L5-S1: A decrease in disc height is seen posteriorly. Facet arthropathy is visualized bilaterally. A broad-based disc bulge is seen causing flattening of the ventral thecal sac, without significant spinal canal stenosis. There is narrowing of both lateral recesses. Moderate bilateral neural foraminal narrowing is identified. Soft tissues: Minimal edema within the subcutaneous posteriorly. IMPRESSION: 1. Mild retrolisthesis of L5 on S1. 2. Degenerative changes are visualized involving the lumbar lower thoracic spine, as described above. 3. Minimal to mild stable narrowing of the thecal sac at L4-L5. 4. Neural foraminal narrowing from L3-L4 through L5-S1.
--- NOTE | 2024-09-24 17:00 | MR_ITS ---
PROCEDURE INFORMATION: Exam: MR Right Lower Extremity Joint Without Contrast; Hip Exam date and time: 09/24/2024 4:04 PM Age: 49 years old Clinical indication: Pain; Hip; Right; Additional info: Chronic right hip with radiculopathy TECHNIQUE: Imaging protocol: Magnetic resonance imaging of the right lower extremity joint without contrast. Exam focused on the hip. COMPARISON: MR LUMBAR SPINE WO CON 06/20/2023 4:12 PM FINDINGS: Bones/joints: No visualized acute marrow edema, acute fracture, dislocation, or avascular necrosis involving the right hip. Small bilateral hip joint effusions are identified. There is irregularity and minimal edema involving the superolateral aspect of the right acetabulum, likely due to arthropathy. Narrowing of the right hip joint space is superiorly. These findings are consistent with mild right hip arthropathy. There is narrowing of the left hip joint space superiorly as well. Evaluation of the left hip is limited. Labrum: Evaluation of the right hip labrum is limited by motion artifact. A few foci of increased PD signal intensity are seen within the anterior superior aspect of the right hip labrum, due to labral tear or motion artifact. Bursae: Mild STIR hyperintensity is visualized adjacent to the right greater trochanter and gluteus medius tendon, consistent with gluteal tendinopathy/trochanteric bursitis. Mild STIR hyperintense soft tissue edema is also visualized adjacent to the left greater trochanter. TENDONS: Tendons of iliopsoas group: Unremarkable. No evidence of tear. Tendons of medial compartment of thigh: No evidence of tear. Tendons of lateral rotators of hip: No evidence of tear. Tendons of gluteal group: See above. Soft tissues: See above. Lymph nodes: Nonspecific inguinal lymph nodes are seen bilaterally, a few which are mildly enlarged. An enlarged right inguinal lymph node measures 2.5 cm in length. Reproductive: Within the right seminal vesicles, there is a 6 mm focus of STIR hypointensity, which is of indeterminate clinical significance. Evaluation of the seminal vesicles and prostate is limited. IMPRESSION: 1. Small bilateral hip joint effusions are identified. 2. Mild STIR hyperintensity is visualized adjacent to the right greater trochanter and gluteus medius tendon, consistent with gluteal tendinopathy/trochanteric bursitis. Mild soft tissue edema is also visualized adjacent to the left greater trochanter. 3. Mild right hip arthropathy. 4. A few foci of increased PD signal intensity are seen within the anterior superior aspect of the right hip labrum, due to labral tear or motion artifact. 5. Within the right seminal vesicles, there is a 6 mm focus of STIR hypointensity, which is of indeterminate clinical significance. 6. Additional findings described above.
== END 2024-09-24 23:59 | disposition home or self-care (01) ==
LOC: RAD 15:52
PROVIDERS: PCP Nurse Practitioner Family; Visit Provider Nurse Practitioner Family
DX: M48.061 Spinal stenosis, lumbar region without neurogenic claudication (principal); M48.07 Spinal stenosis, lumbosacral region; M47.24 Other spondylosis with radiculopathy, thoracic region; M51.16 Intervertebral disc disorders with radiculopathy, lumbar region; M43.17 Spondylolisthesis, lumbosacral region; M51.17 Intervertebral disc disorders with radiculopathy, lumbosacral region; M16.11 Unilateral primary osteoarthritis, right hip; M25.451 Effusion, right hip; M25.452 Effusion, left hip; M70.61 Trochanteric bursitis, right hip; M76.01 Gluteal tendinitis, right hip; G57.01 Lesion of sciatic nerve, right lower limb; M46.1 Sacroiliitis, not elsewhere classified; R93.6 Abnormal findings on diagnostic imaging of limbs
CPT/HCPCS: 72148; 73721

== ENCOUNTER 2024-09-29 14:42 | Outpatient (POV) | payer OTHER, SELFPAY ==
--- OUTSIDE RECORDS SUMMARY | 2024-09-03 13:20 | XMS_ITS | Encounter Summary ---
Author Organization [facility] Address [address] [place] [address] Care Team Providers Care Aircraft Seat Upholsterer Name Role Phone Isaura Haque APRN Primary Care Provider [phone] Elsy Velez MD Unavailable Reason for Visit * Reason Comments Consult Pt is a 49 year old male that presents to the clinic on this date as a new patient. Pt states he is having back pain at this visit and rates it 06/28. Encounter Details Date Type Department Care Team (Late st Contact Info) Description 09/03/2024 1:20 PM EDT Office Visit [facility] [address] [place] [phone] Faustino Umaña MD [address] [place] [phone] JUDITH (acute kidney injury) (CMS/HCC) (Primary Dx); Stage 3a chronic kidney disease (CMS/HCC); DAKOTA (obstructive sleep apnea); Hypertensive chronic kidney disease with stage 1 through stage 4 chronic kidney disease, or unspecified chronic kidney disease; Other hyperlipidemia; Type 2 diabetes mellitus with chronic kidney disease, without long-term current use of insulin, unspecified CKD stage (CMS/HCC) Social History Tobacco Use Types Packs/Day Years Used Date Smoking Tobacco: Never Smokeless Tobacco: Never Tobacco Cessation:Counseling Given: Not Answered Alcohol Use Standard Drinks/Week Comments Never 0 (1 standard drink = 0.6 oz pur e alcohol) PHQ-2 Answer Date Recorded Patient Health Questionnaire-2 Score 0 05/05/2024 PHQ-9 Answer Date Recorded Patient Health Questionnaire-9 Score 0 05/05/2024 Sex and Gender Information Value Date Recorded Sex Assigned at Not on file Legal Sex Male 6:49 PM EDT Gender Identity Not on file Sexual Orientation Not on file documented as of this encounter Last Filed Vital Signs Vital Sign Reading Time Taken Comments Blood Pressure 138/78 09/03/2024 1:45 PM EDT Pulse 71 09/03/2024 1:45 PM EDT Temperature - - Respiratory Rate 18 09/03/2024 1:45 PM EDT Oxygen Saturation 98% 09/03/2024 1:45 PM EDT Inhaled Oxygen Concentration - - Weight 101 kg (223 lb) 09/03/2024 1:45 PM EDT Height 175.3 cm (5' 9 ) 09/03/2024 1:45 PM EDT Body Mass Index 32.93 09/03/2024 1:45 PM EDT documented in this encounter Miscellaneous Notes * Progress Notes - Faustino Umaña MD - 09/03/2024 1:20 PM EDT Nephrology Outpatient Clinic Progress note [facility] Patient: Garrett Turcios Primary Care Provider: Isaura Haque, SHANTI Reason for visit: Acute Kidney Injury HPI/Subjective Garrett Turcios is a 49 y.o. male with a PMH of HTN (20+ years), DM2 (~1 year since diagnosis), who presents for evaluation of worsening renal function. No changei health since last visit. He is now on Ozempic 0.5 injections weekly and doing much better with tolerance. No recent illnesses. No swelling. No urinary complaints. ROS Review of Systems No urinary symptoms No leg swelling History: Past Medical History: Diagnosis Date Diabetes (CMS/HCC) Enlarged liver High cholesterol Hypertension Spleen anomaly Thyroid cancer (CMS/HCC) Patient Active Problem List Diagnosis JUDITH (acute kidney injury) (CMS/HCC) Other hyperlipidemia Stage 3a chronic kidney disease (CMS/HCC) DAKOTA (obstructive sleep apnea) Hypertensive chronic kidney disease with stage 1 through stage 4 chronic kidney disease, or unspecified chronic kidney disease Past Surgical History: Procedure Laterality Date KNEE SURGERY Right SHOULDER SURGERY Left THYROID SURGERY History reviewed. No pertinent family history. Social History Socioeconomic History Marital status: Spouse name: Not on file Number of children: Not on file Years of education: Not on file Highest education level: Not on file Occupational History Not on file Tobacco Use Smoking status: Never Smokeless tobacco: Never Substance and Sexual Activity Alcohol use: Never Drug use: Never Sexual activity: Defer Other Topics Concern Not on file Social History Narrative Not on file Social Drivers of Health Financial Resource Strain: Not on file Food Insecurity: Not on file Transportation Needs: Not on file Physical Activity: Not on file Stress: Not on file Social Connections: Not on file Intimate Partner Violence: Not on file Housing Stability: Not on file No Known Allergies Medications: Current Medications: Current Outpatient Medications Medication Instructions atorvastatin (LIPITOR) 80 mg, Nightly Blood Glucose Monitoring Suppl ([employer] Verio Flex System) w/Device kit use as directed fenofibrate (TRICOR) 145 mg, Daily levothyroxine (SYNTHROID, LEVOXYL) 175 mcg, Daily losartan-hydroCHLOROthiazide (Hyzaar) 100-25 MG tablet 1 tablet, Daily ondansetron ODT (ZOFRAN-ODT) 4 mg, As needed Ozempic, 1 MG/DOSE, 4 MG/3ML solution pen-injector Weekly Objective Visit Vitals BP 138/78 (BP Location: Left arm, Patient Position: Sitting, BP Cuff Size: Large adult) Pulse 71 Resp 18 Ht 1.753 m (5' 9 ) Wt 101 kg (223 lb) SpO2 98% BMI 32.93 kg/m?? Smoking Status Never BSA 2.22 m?? Heart Rate: [71] 71 Resp: [18] 18 BP: (138)/(78) 138/78 Physical Exam: Physical Exam Constitutional: Appearance: Normal appearance. HENT: Head: Normocephalic and atraumatic. Right Ear: External ear normal. Left Ear: External ear normal. Nose: Nose normal. Mouth/Throat: Mouth: Mucous membranes are moist. Pharynx: Oropharynx is clear. Eyes: Conjunctiva/sclera: Conjunctivae normal. Pupils: Pupils are equal, round, and reactive to light. Cardiovascular: Rate and Rhythm: Normal rate. Pulses: Normal pulses. Pulmonary: Effort: Pulmonary effort is normal. Abdominal: General: Abdomen is flat. Bowel sounds are normal. Musculoskeletal: General: Normal range of motion. Right lower leg: No edema. Left lower leg: No edema. Skin: General: Skin is warm and dry. Capillary Refill: Capillary refill takes less than 2 seconds. Neurological: General: No focal deficit present. Mental Status: He is alert and oriented to person, place, and time. Mental status is at baseline. Psychiatric: Mood and Affect: Mood normal. Behavior: Behavior normal. Thought Content: Thought content normal. Judgment: Judgment normal. Laboratory: LAB RESULTS Renal Panel: No results found for: NA , K , CL , CO2 , BUN , BUNPRE , BUNPOST , CREATININE , EGFR , CA , GLU , PHOS , ALBUMIN CBC: No results found for: WBC , RBC , HGB , HCT , PLT , MCV , MCH , MCHC , RDW , NRBC Iron studies: No results found for: FERRITIN , IRON , IRONSAT , TIBC Urine studies: No results found for: CAR , CAUR , CALCIUMUR , PHOSUR , [id number] , [id number] , CREATUR MBD: No results found for: PTH , CA , CALCIUM , ICAS , PHOS , MG VITAMIN D 25 No results found for: VITD25 VITAMIN D 1,25 No results found for: VITD32 Paraproteinemia Labs: No results found for: SPEP , KAPPALAMBDA Nutritional: No results found for: PREALBUMIN , VITD25 Endocrine profile: No results found for: TESTOSTERONE , TESTOST , FSH , LH , PROLACTIN , TSH , [id number] , FREET4 , CORTISOL Las from 11/11/23 Sodium 143 K 4.3 Cl 105 CO2 29 BUN 22 Cr 2.10 GFR 34 Glu 101 Ca 10.2 Phos 4.2 Alb 4.7 Labs 10/27/23 Na 141, K 4.0, Cl 103, CO@ 28, BUN 22, Cr 1.6, GFR 47, Ca 10.2, Mg 1,9, Alb 4.7 Labs 08/04/23 Na 142, K 4.3, CO2 28, BUN 21, Cr 1.3, GFR 59 Ca 10.5 Labs June 23, 2023 Na 140, K 4.3, Cl 101, CO2 31, Cr 1.5, GFR 50, Ca 9.8 Labs: 08/20/2024 CBC: WBC 7.1, Hgb 13.6, PLT 237 RFP: Na 142, K 5.0, CO2 24, BUN 21, Cr 1.60, eGFR 47, Glu 103, Ca 9.6, Phos 3.6, Alb 4.6 UA: Neg blood, Neg Protein Imaging: normal renal ultrasound October 2023 Impression & Plan: #JUDITH - resolved #CKD Stage 3a Etiology: Hypertensive nephrosclerosis with recent JUDITH 2/2 medication suspected Baseline serum creatinine: ~1.3 eGFR high 50s Most recent Scr: 1.6 eGFR 47 Electrolytes, acid/base, volume status wnl Urine: NO blood, NO protein Anatomy: normal renal ultrasound October 2023 Risk factor reduction to slow progression of kidney disease: -BP Control goal BP <130/80 - almost at goal -DM control goal A1c <7.0% - at goal 6.3% -Lifestyle management: ---Maintain healthy weight: Body mass index is 32.93 kg/m??. ---Diet recommendations: Heart healthy and Low sodium <2g/day ---Daily exercise 20-30 minutes as tolerated -Avoid NSAIDs -JOHN blockade: losartan 100mg -SGLT2 inhibitor: not on currently -GLP1 - on Ozempic 0.5 #HTN in CKD -on losartan-hydrochlorothiazide 100mg-25mg #DAKOTA -suspect this is causing patients high blood CO2 #CKD Bone and Mineral Disease - goal vit d >30, ca and phos are within normal limits #Hyperlipidemia - on statin and fenofibrate Recommendations and plan: - JUDITH has resolved. Patient creatinine is back at 1.6 which is likely close to his baseline. He hasCkd stage 3a from HTN and DM2 so treatment will focus on good blood pressure control and glycemic control. He is on an ARB. He is not on an sGLT2 inhibitor. One of these medications could be tried inthe future, but patient is wary of starting new meds after bad outcome with metformin so will hold off for now. -Recommend to avoid NSAIDs -No change to medication today RTC in 1 year Faustino Umaña MD Division of Nephrology [facility] ORDERS PLACED THIS ENCOUNTER Orders Placed This Encounter Procedures CBC W/O Differential Standing Status: Future Expected Date: 09/03/2025 Expiration Date: 10/08/2025 [facility]: Immediate Urinalysis with reflex microscopic (Culture NOT Included) Standing Status: Future Expected Date: 09/03/2025 Expiration Date: 10/08/2025 [facility]: Immediate Vitamin D 25 Hydroxy Standing Status: Future Expected Date: 09/03/2025 Expiration Date: 10/08/[facility] PTH Intact Total Standing Status: Future Expected Date: 09/03/2025 Expiration Date: 10/08/2025 [facility] Immediate Albumin-creatinine ratio, urine, random Standing Status: Future Expected Date: 09/03/2025 Expiration Date: 10/08/2025 [facility] Protein, Random, Urine with Creatinine Standing Status: Future Expected Date: 09/03/2025 Expiration Date: 10/08/2025 [facility] Renal Function Panel, Plasma Standing Status: Future Expected Date: 09/03/2025 Expiration Date: 10/08/2025 [facility] Problem List Items Addressed This Visit JUDITH (acute kidney injury) (CMS/HCC) - Primary Relevant Orders CBC W/O Differential Urinalysis with reflex microscopic (Culture NOT Included) Vitamin D 25 Hydroxy PTH Intact Total Albumin-creatinine ratio, urine, random Protein, Random, Urine with Creatinine Renal Function Panel, Plasma Other hyperlipidemia Stage 3a chronic kidney disease (CMS/HCC) Relevant Orders CBC W/O Differential Urinalysis with reflex microscopic (Culture NOT Included) Vitamin D 25 Hydroxy PTH Intact Total Albumin-creatinine ratio, urine, random Protein, Random, Urine with Creatinine Renal Function Panel, Plasma DAKOTA (obstructive sleep apnea) Hypertensive chronic kidney disease with stage 1 through stage 4 chronic kidney disease, or unspecified chronic kidney disease Type 2 diabetes mellitus with chronic kidney disease, without long-term current use of insulin ([facility]) documented in this encounter Plan of Treatment Scheduled Orders Name Type Priority Associated Diagnoses Orde r Schedule CBC W/O Differential Lab Routine JUDITH (acute kidney injury) (CMS/HCC) Stage 3a chronic kidney disease (CMS/HCC) Expected: 09/03/2025 (Approximate), Expires: 10/08/2025 Urinalysis with reflex microscopic (Culture NOT Included) Lab Routine JUDITH (acute kidney injury) (CMS/HCC) Stage 3a chronic kidney disease (CMS/HCC) Expected: 09/03/2025 (Approximate), Expires: 10/08/2025 Vitamin D 25 Hydroxy Lab Routine JUDITH (acute kidney injury) (CMS/HCC) Stage 3a chronic kidney disease ([facility]) Expected: 09/03/2025 (Approximate), Expires: 10/08/2025 PTH Intact Total Lab Routine JUDITH (acute kidney injury) ([facility]) Stage 3a chronic kidney disease ([facility]/HCC) Expected: 09/03/2025 (Approximate), Expires: 10/08/2025 Albumin-creatinine ratio, urine, random Lab Routine JUDITH (acute kidney injury) ([facility]) Stage 3a chronic kidney disease ([facility]) Expected: 09/03/2025 (Approximate), Expires: 10/08/2025 Protein, Random, Urine with Creatinine Lab Routine JUDITH (acute kidney injury) ([facility]) Stage 3a chronic kidney disease ([facility]) Expected: 09/03/2025 (Approximate), Expires: 10/08/2025 Renal Function Panel, Plasma Lab Routine JUDITH (acute kidney injury) ([facility]) Stage 3a chronic kidney disease ([facility]) Expected: 09/03/2025 (Approximate), Expires: 10/08/2025 documented as of this encounter Visit Diagnoses Diagnosis JUDITH (acute kidney injury) ([facility])- Primary Stage 3a chronic kidney disease ([facility]) DAKOTA (obstructive sleep apnea) Obstructive sleep apnea (adult) (pediatric) Hypertensive chronic kidney disease with stage 1 through stage 4 chronic kidney disease, or unspecified chronic kidney disease Other hyperlipidemia Type 2 diabetes mellitus with chronic kidney disease, without long-term current use of insulin, unspecified CKD stage ([facility]) documented in this encounter Additional Health Concerns Assessment Noted Time PHQ-9 Depression Total Score: 0 05/05/19 25 2:45 PM EST A fall risk assessment has been complete d for the patient 05/05/2024 2:45 PM EST A Body Mass Index follow-up plan has been documented for the patient 09/03/2024 2:10 PM EDT documented as of this encounter Care Teams Aircraft Seat Upholsterer Relationship Specialty Start Date End Date Isaura Haque APRN [address] [place] [address] PCP - General 07/10/23 Elsy Velez MD [address] [place] [address] Surgeon Neurosurgery 08/12/23 documented as of this encounter
--- OUTSIDE RECORDS SUMMARY | 2024-09-29 14:45 | XMS_ITS | Clinical Summary ---
Author Organization [facility] Address [address] [place] [address] Care Team Providers Care Gis Geographer Name Role Phone Isaura Haque APRN Primary Care Provider [phone] Elsy Velez MD Unavailable Allergies No known [...] Description 09/03/2024 1:20 PM EDT Office Visit [facility] [address] [place] [address] Faustino Umaña MD JUDITH (acute kidney injury) ([facility] (Primary Dx); Stage 3a chronic kidney disease ([facility]); DAKOTA (obstructive sleep apnea); Hypertensive chronic kidney disease with stage 1 through stage 4 chronic kidney disease, or unspecified chronic kidney disease; Other hyperlipidemia; Type 2 diabetes mellitus with chronic kidney disease, without long-term current use of insulin, unspecified CKD stage ([facility]) 09/03/2024 Travel from Last 3 Months [...] [facility]-HIV Screening 1977 [facility]-Hepatitis C Screening 1977 [facility]-/Child/Adol SDOH Screenings 1977 [id number] Vaccine (#1) 1982 Diabetes: Dental Exam 1987 [...] age to complete this topic Insurance [place] [id number] [facility] Care Teams Gis Geographer Relationship Specialty Start Date End Date Isaura Haque APRN [address] [place] [address] PCP - General 07/10/23 Elsy Velez MD [id number] [place] [address] Surgeon Neurosurgery 08/12/23
--- OUTSIDE RECORDS SUMMARY | 2024-09-29 14:45 | XMS_ITS | Encounter Summary ---
Author Organization [facility] Address [address] [place] [address] Care Team Providers Care Tank Systems Maintainer Name Role Phone Isaura Haque APRN Primary Care Provider [phone] Elsy Velez MD Unavailable Encounter Details Date [...] documented as of this encounter Care Teams Tank Systems Maintainer Relationship Specialty Start Date End Date Isaura Haque APRN [address] [place] [address] PCP - General 07/10/23 Elsy Velez MD [address] [place] [address] Surgeon Neurosurgery 08/12/23 documented as of this encounter
--- OUTSIDE RECORDS SUMMARY | 2024-09-29 14:45 | XMS_ITS | Encounter Summary ---
Author Organization Healthcare Address [address] [place] [address] Care Team Providers Care Goring Cutter Name Role Phone Isaura Haque APRN Primary Care Provider [phone] Elsy Velez MD Unavailable Encounter Details Date Type Department Care Team (Late st Contact Info) Description 01/23/2018 Orders Only External Location [address] [place] [address] Provider, External Social History Tobacco Use Types [...] on filedocumented in this encounter Care Teams Goring Cutter Relationship Specialty Start Date End Date Isaura Haque APRN [address] [place] [address] PCP - General 07/10/23 Elsy Velez MD [address] [place] [address] Surgeon Neurosurgery 08/12/23 documented as of this encounter
[2024-09-29 15:50] VITALS: BP 144/95; BP 147/95; PULSE 86; RESP 16; O2SAT 96; BMI 39.1
--- NOTE | 2024-09-29 16:08 | EXP.PAIN.SOA ---
[facility] Disclaimer: The information contained in this section may have been updated after the patient was seen, as this information can be updated by other users. Medical History Screening for HIV (human immunodeficiency virus) Encounter for hepatitis C screening test for low risk patient Bilateral otitis media Influenza A Fatty liver Encounter for screening for diabetes mellitus Thyroid cancer 2017 Right knee meniscal tear REPAIRED IN SX. Bulging disc Hypothyroid Gout HTN (hypertension) Enthesopathy of left ankle History of fracture of left ankle Left Achilles bursitis Achilles bursitis of left lower extremity Chronic pain of left ankle Achilles tendinitis Exposure to COVID-19 virus Surgical History H/O thyroidectomy 02/2018, Dr. Devries H/O repair of rotator cuff LEFT Family History Other No significant family history Social History Smoking Status: Never smoker alcohol intake: never substance use type: denies use current occupational status: other Travel in the last 8 weeks?: None household members: spouse housing: house marital status: PM Subjective & Objective Subjective Subjective:: Patient is a pleasant 49-year-old male who presents today for follow-up of his right bursa injection on 09/07/2024. Today he rates his pain a 9 out of 10. He states that he did not notice any additional improvement following this injection and just feels like the pain is so severe. He does state that he ended up seeing his primary care and they did end up doing additional imaging that did show a labrum tear. Patient states that they did put in a urgent referral to Dr. Khoury at however he has not heard any updates regarding this. Patient states that the Flexeril 10 mg 3 times a day is not touching it or the compounded cream. Patient states that his primary care did even start him on gabapentin with no additional improvement. Patient does state that he is also seeing his kidney doctor and they are saying that there has been improvements. His Jorge L has been reviewed and is appropriate. Review of Systems: General: No recent weight changes, no fever, no sleep disturbances Respiratory: No cough, no shortness of air, no recurring pulmonary infections Cardiovascular/peripheral vascular: No chest pain, no palpitations, no edema, no shortness of breath Gastrointestinal: No new onset incontinence, normal bowel movements reported Genitourinary: No new onset incontinence Musculoskeletal: Right hip pain Psychiatric: [Normal mood/affect] Neurological: [Denies weakness in extremities], [denies balance issues] Pain at rest (0-10 scale): 9 Objective Objective:: Physical Exam: General: Alert and oriented x3, no acute distress, pleasant and cooperative Lungs: Respirations even and unlabored, symmetrical chest expansion Eyes: PERRL Musculoskeletal: Flexion and extension of right hip somewhat guarded secondary to pain, [antalgic gait noted] Neurological: Speech clear, no gross sensory deficit Has patient had previous pain injection?: Yes Percent improvement in pain since last injection: Minimal Conservative treatment options previously tried: Home exercise plan Length of treatment: Longer than 12 weeks Meds Home Medications and Allergies Home Medications ?Medication ?Instructions ?Recorded ?Confirmed ?Type atorvastatin 80 mg tablet 80 mg PO HS #90 tabs 07/07/23 09/29/24 Rx blood sugar diagnostic (OneTouch #100 ea 07/07/23 09/29/24 Rx Verio test strips) blood-glucose meter #1 ea 07/07/23 09/29/24 Rx lancets 33 gauge #100 ea 07/07/23 09/29/24 Rx ondansetron 4 mg disintegrating 4 mg PO Q8H PRN nausea and 04/29/24 09/29/24 Rx tablet vomiting #30 tabs semaglutide 0.25 mg or 0.5 mg (2 0.5 mg (0.736 mL) SQ WEEKLY #3 mL 05/10/24 09/29/24 Rx mg/3 mL) subcutaneous pen injector (Ozempic) levothyroxine 175 mcg tablet 175 mcg PO DAILY 09/16/24 09/29/24 History losartan 100 1 tab PO DAILY 09/16/24 09/29/24 History mg-hydrochlorothiazide 25 mg tablet gabapentin 300 mg capsule 300 mg PO TID #90 caps 09/21/24 09/29/24 Rx New Prescriptions to Start Prescriptions: Allergies Allergy/AdvReac Type Severity Reaction Status Date / Time No Known Allergies Allergy Verified 09/27/24 10:29 Assessment and Plan *Assessment and plan (1) Tear of right acetabular labrum: Status: Acute Category: Medical Code(s): S73.191A - Other sprain of right hip, initial encounter Plan I did review over his image it does appear as they are trying to rule out the possibility of a right hip labrum tear versus motion artifact. I did also review over the patient's most recent GFR which is still altered and lower than normal limits. I did discuss due to this fact of still altered kidney function we cannot prescribe any anti-inflammatories. I will send in a temporary dose of Tylenol 3 twice a day with a 2-week supply. We will follow-up with the patient in 2 weeks for reevaluation of symptoms and plan of care. Risks and benefits of the medication have been explained in detail to the patient. The patient does understand the risk of dependence on the medication when given over a prolonged period. Patient has been advised of risks of oversedation with the prescribed medication. Narcan has been offered to the paitent in the event of oversedation. Patient has been advised that a family member should also be educated regarding administration of Narcan. The patient has been advised to consult with his/her primary care provider and pharmacist regarding drug-drug interaction of medications currently prescribed. Patient has been prescribed a controlled substance after being counseled on the medication, medication safety, and possible side effects. Opioid contract was reviewed and signed by the patient, and that they have agreed to all of the terms set forth by our compliance program. A UDS is needed to verify patient's compliance with our office pain contract. This is ordered based off specific treatments related to chronic pain with the potential to abuse certain medications. Patient has been instructed to contact the clinic with any concerns before the next appointment. Dr. Montgomery has reviewed this note and agrees with this plan of care. This note was dictated using voice recognition software and make contain errors or omissions.
== END 2024-09-29 23:59 | disposition home or self-care (01) ==
PROVIDERS: PCP Nurse Practitioner Family; Visit Provider Nurse Practitioner Family
DX: S73.191A Other sprain of right hip, initial encounter (principal); Z79.899 Other long term (current) drug therapy; X58.XXXA Exposure to other specified factors, initial encounter
CPT/HCPCS: 99212; G0463

== ENCOUNTER 2024-10-14 14:58 | Outpatient (POV) | payer OTHER, SELFPAY ==
--- OUTSIDE RECORDS SUMMARY | 2024-09-03 13:20 | XMS_ITS | Encounter Summary ---
Author Organization [facility] Address [address] [place] [address] Care Team Providers Care Gas Refrigerator Servicer Name Role Phone Isaura Haque APRN Primary Care Provider [phone] Elsy Velez MD Unavailable Reason for Visit * Reason Comments Consult Pt is a 49 year old male that presents to the clinic on this date as a new patient. Pt states he is having back pain at this visit and rates it 06/28. Encounter Details Date Type Department Care Team (Late st Contact Info) Description 09/03/2024 1:20 PM EDT Office Visit [facility] [address] [place] [phone] Faustino Umaña MD [address] [place] [phone] JUDITH (acute kidney injury) (CMS/HCC) (Primary Dx); [...] PM EDT Nephrology Outpatient Clinic Progress note [facility] Patient: Garrett Turcios Primary Care [...] 80 mg, Nightly Blood Glucose Monitoring Suppl (Thinker Thing Verio Flex System) w/Device kit use as [...] , CAUR , CALCIUMUR , PHOSUR , [id number] , [id number] , CREATUR MBD: No results found for: [...] , LH , PROLACTIN , TSH , [id number] , FREET4 , CORTISOL [place] from 11/11/23 [...] year Faustino Umaña MD Division of Nephrology [facility] ORDERS PLACED THIS ENCOUNTER Orders Placed This Encounter Procedures CBC W/O Differential Standing Status: Future Expected Date: 09/03/2025 Expiration Date: 10/08/2025 [facility] Immediate Urinalysis with reflex microscopic (Culture NOT Included) Standing Status: Future Expected Date: 09/03/2025 Expiration Date: 10/08/2025 [facility]: Immediate Vitamin D 25 Hydroxy Standing Status: Future Expected Date: 09/03/2025 Expiration Date: 10/08/[facility] P[facility] Intact Total Standing Status: Future Expected Date: 09/03/2025 Expiration Date: 10/08/2025 [facility] Immediate Albumin-creatinine ratio, urine, random Standing Status: Future Expected Date: 09/03/2025 Expiration Date: 10/08/2025 [facility] Protein, Random, Urine with Creatinine Standing Status: Future Expected Date: 09/03/2025 Expiration Date: 10/08/2025 [facility]mediate Renal Function Panel, Plasma Standing Status: Future Expected Date: 09/03/2025 Expiration Date: 10/08/2025 [facility] Im[facility] Problem List Items Addressed This Visit [...] disease, without long-term current use of insulin ([facility]) documented in this encounter Plan of Treatment [...] injury) (CMS/HCC) Stage 3a chronic kidney disease ([facility]) Expected: 09/03/2025 (Approximate), Expires: 10/08/2025 PTH Intact Total Lab Routine JUDITH (acute kidney injury) ([facility]) Stage 3a chronic kidney disease ([facility]/HCC) Expected: 09/03/2025 (Approximate), Expires: 10/08/2025 Albumin-creatinine ratio, urine, random Lab Routine JUDITH (acute kidney injury) ([facility]) Stage 3a chronic kidney disease ([facility]) Expected: 09/03/2025 (Approximate), Expires: 10/08/2025 Protein, Random, Urine with Creatinine Lab Routine JUDITH (acute kidney injury) ([facility]) Stage 3a chronic kidney disease ([facility]) Expected: 09/03/2025 (Approximate), Expires: 10/08/2025 Renal Function Panel, Plasma Lab Routine JUDITH (acute kidney injury) ([facility]) Stage 3a chronic kidney disease ([facility]) Expected: 09/03/2025 (Approximate), Expires: 10/08/2025 documented as of this encounter Visit Diagnoses Diagnosis JUDITH (acute kidney injury) ([facility])- Primary Stage 3a chronic kidney disease ([facility]) DAKOTA (obstructive sleep apnea) Obstructive sleep apnea (adult) (pediatric) Hypertensive chronic kidney disease with stage 1 through stage 4 chronic kidney disease, or unspecified chronic kidney disease Other hyperlipidemia Type 2 diabetes mellitus with chronic kidney disease, without long-term current use of insulin, unspecified CKD stage ([facility]) documented in this encounter Additional Health Concerns Assessment Noted Time PHQ-9 Depression Total Score: 0 05/05/19 25 2:45 PM EST A fall risk assessment has been complete d for the patient 05/05/2024 2:45 PM EST A Body Mass Index follow-up plan has been documented for the patient 09/03/2024 2:10 PM EDT documented as of this encounter Care Teams Gas Refrigerator Servicer Relationship Specialty Start Date End Date Isaura Haque APRN [address] [place] [address] PCP - General 07/10/23 Elsy Velez MD [address] [place] [address] Surgeon Neurosurgery 08/12/23 documented as of this encounter
--- OUTSIDE RECORDS SUMMARY | 2024-10-05 08:15 | XMS_ITS | Encounter Summary ---
Author Organization Healthcare Address [address] [place] [address] Care Team Providers Care 3D Animator Name Role Phone Isaura Haque APRN Primary Care Provider [phone] Elsy Velez MD Unavailable Encounter Details Date Type Department Care Team (Latest Contact Info) Description 10/05/2024 8:15 AM EDT - 10/05/2024 11:59 PM EDT Hospital Encounter Medical Office Building Radiology [facility] [place] [address] Hip pain, right Discharge Disposition: [...] every night. 07/07/2023 Blood Glucose Monitoring Suppl ([employer] Verio Flex System) w/Device kit use as [...] documented as of this encounter Care Teams 3D Animator Relationship Specialty Start Date End Date Isaura Haque APRN [address] [place] [address] PCP - General 07/10/23 Elsy Velez MD [address] [place] [address] Surgeon Neurosurgery 08/12/23 documented as of this encounter
--- OUTSIDE RECORDS SUMMARY | 2024-10-05 08:40 | XMS_ITS | Encounter Summary ---
Author Organization Healthcare Address [address] [place] [address] Care Team Providers Care Flag Signalman Name Role Phone Isaura Haque APRN Primary Care Provider [phone] Elsy Velez MD Unavailable Reason for Referral * Consultation (Routine) - Authorized Specialty Diagnoses / Procedures Referred By Connie salazar Referred To Contact Pain Medicine Diagnoses Femoroacetabular impingement of right hip Lumbar disc disease Ki Khoury MD [address] [place] [address] Phone: tel: fax: Referral ID Status Reason Start Date Expiration Date Visits Requested Visits Authorized [id number] Authorized Specialty Services Required 10/05/2024 04/06/2026 1 1 Scheduling Instructions Right hip Intra articular steroid Reason for Visit * Reason Comments Pain * Consultation (Urgent) - Closed Specialty Diagnoses / Procedures Referred By Connie salazar Referred To Contact Diagnoses Labral tear of right hip joint System, Provider Not In, [address] [place] [address] Referral ID Status Reason Start Date Expiration Date Visits Re quested Visits Authorized [id number] Closed 09/28/2024 03/30/2026 1 1 Encounter Details Date Type Department Care Team ([facility] st Contact Info) Description 10/05/2024 8:40 AM EDT Office Visit Medical Office Building Surgery Spine & Joint [address], [address] [place] [address] Ki Khoury MD [address] [place] [address] Hip pain, right (Primary Dx); Femoroacetabular impingement of right hip; Lumbar disc disease Social History Tobacco Use Types Packs/Day Years Used Date Smoking Tobacco: Never Passive Smoke Exposure: Never Smokeless Tobacco: Never Tobacco Cessation:Counseling Given: [...] Sign Reading Time Taken Comments Blood Pressure 128/84 10/05/2024 8:33 AM EDT Pulse 62 10/05/2024 8:33 AM EDT Temperature - - Respiratory Rate 18 10/05/2024 8:33 AM EDT Oxygen Saturation 96% 10/05/2024 8:33 AM EDT Inhaled Oxygen Concentration - - Weight 113 kg (250 lb) 10/05/2024 8:33 AM EDT Height 175.3 cm (5' 9 ) 10/05/2024 8:33 AM EDT Body Mass Index 36.92 10/05/2024 8:33 AM EDT documented in this encounter Miscellaneous Notes * Progress Notes - Dhruv Valentin MD - 10/05/2024 8:40 AM EDT Images from the original note were not included. Subjective: Garrett Turcios is a 49 y.o. y/o male who comes in today for right hip pain. The patient localizes the pain/problem to the posterior butt and lower back. The patient has had the problem for 1 year. The problem began gradually over time. The patient reports the pain as Aching and Sharp. The patient reports the pain as moderate. The pain/problem is better with laying flat. The pain/problem is worse with sitting for long periods. The pain is Activity Related. The following treatments have been attempted: Anti-inflammatories, Massage/Chiropractor, Injections, TENS Unit, Heat, and Ice. Patient follows with a pain clinic in [place] for injections. Past Medical History[1] Surgical History[2] Social History Socioeconomic History Marital status: Spouse name: Not on file Number of children: Not on file Years of education: Not on file Highest education level: Not on file Occupational History Not on file Tobacco Use Smoking status: Never Passive exposure: Never Smokeless tobacco: Never Vaping Use Vaping status: Never Used Substance and Sexual Activity Alcohol use: Never [...] on file Housing Stability: Not on file Allergies[3] Current Medications[4] I have reviewed and updated the patient's past medical history, past surgical history, social history, and family history. This is located both in the patient's note and their intake form that has been scanned into the medical record for today's visit. 14 point review of systems was reviewed per signed intake sheet and is otherwise negative except asnoted above. Objective: Body mass index is 36.92 kg/m??. 07/10/2023 8:10 AM 08/12/2023 2:55 PM 05/05/2024 2:37 PM 09/03/2024 1:45 PM 10/05/2024 8:33 AM Vitals Systolic 150 163 133 138 128 Diastolic 102 109 86 78 84 Heart Rate 65 71 62 Temp 36.6 C Resp 18 16 18 18 Height (cm) 175.3 cm 175.3 cm 175.3 cm 175.3 cm 175.3 cm Weight (kg) 118.933 kg 118.842 kg 114.397 kg 101.152 kg 113.4 kg BMI 38.72 kg/m2 38.69 kg/m2 37.24 kg/m2 32.93 kg/m2 36.92 kg/m2 BSA (m2) 2.41 m2 2.41 m2 2.36 m2 2.22 m2 2.35 m2 Visit Report Report Report Report Hip: Trendelenburg: None Limp: slight Leg Lengths: equal ROM: 0-120 flexion, 3o degrees internal rotation, 30 degrees external rotation Abduction strength level: 5/5 Pain location: gluteal musculature My independent interpretation of radiographic testing shows: XR of the right hip shows minimal osteoarthritis with a CAM deformity of the femoral neck and calcification of the labrum. MRI shows fattyatrophy of the gluteal musculature with chronic degeneration of the labrum Notes reviewed: none Results of tests reviewed: previous radiographs Assessment and plan: Hip pain, right Femoroacetabular impingement of right hip Lumbar disc disease Orders Placed This Encounter New Patient Under 50: XR Hip (AP Pelvis Standing with Jeff Marker / Frog Leg Lateral Standing / 45-Degree Hdz / False Profile Standing) Pre-Op: XR Hip-Ankle Limb Alignment Ambulatory referral to Interventional Pain meloxicam (Mobic) 15 MG tablet No follow-ups on file. Patient presents with right gluteal pain in the setting of degenerative disc disease of the lumbar spine and labral degeneration of the right hip. We will refer the patient for an intra-articular hipinjection to assess for symptom relief. We can then consider hip arthroscopy vs referral to spine surgery for lumbar spine intervention. Referral made to IVP for injection. Prescribed Mobic for pain control in the meantime. This problem is a chronic problem with some progression . Rx management per plan. [1] Past Medical History: Diagnosis Date Diabetes (CMS/HCC) Enlarged liver High cholesterol Hypertension Spleen anomaly Thyroid cancer (CMS/HCC) [2] Past Surgical History: Procedure Laterality Date KNEE SURGERY Right SHOULDER SURGERY Left THYROID SURGERY [3] No Known Allergies [4] Current Outpatient Medications Medication Sig Dispense Refill acetaminophen-codeine (Tylenol w/ Codeine #3) 300-30 MG tablet TAKE ONE TABLET BY MOUTH TWICE DAILYAS NEEDED FOR PAIN MAY CAUSE DROWSINESS atorvastatin (Lipitor) 80 MG tablet Take 1 tablet (80 mg) by mouth every night. Blood Glucose Monitoring Suppl ([employer] Verio Flex System) w/Device kit use as directed fenofibrate (Tricor) 145 MG tablet Take 1 tablet (145 mg) by mouth 1 (one) time each day. gabapentin (Neurontin) 300 MG capsule TAKE ONE CAPSULE BY MOUTH THREE TIMES DAILY MAY CAUSE DROWSINESS levothyroxine (Synthroid, Levoxyl) 175 MCG tablet Take 1 tablet (175 mcg) by mouth 1 (one) time each day. losartan-hydroCHLOROthiazide (Hyzaar) 100-25 MG tablet Take 1 tablet by mouth 1 (one) time each day. ondansetron ODT (Zofran-ODT) 4 MG disintegrating tablet Take 1 tablet (4 mg) by mouth if needed. Ozempic, 1 MG/DOSE, 4 MG/3ML solution pen-injector Inject as directed 1 (one) time per week. meloxicam (Mobic) 15 MG tablet Take 1 tablet by mouth daily. 30 tablet 11 No current facility-administered medications for this visit. Cosigned by Ki Khoury MD at 10/05/2024 9:22 AM EDT Associated attestation - Ki Khoury MD - 10/05/2024 9:22 AM EDT Images from the original note were not included. I saw and evaluated the patient with the resident/fellow. I discussed the case with the resident/fellow and agree with the findings and plan as documented. Subjective: Garrett Turcios is a 49 y.o. y/o male who comes in today for right posterior hip pain. I have reviewed and updated the patient's past medical history, past surgical history, social history, and family history. This is located both in the patient's note and their intake form that has been scanned into the medical record for today's visit. 14 point review of systems was reviewed per signed intake sheet and is otherwise negative except asnoted above. Objective: Body mass index is 36.92 kg/m??. 07/10/2023 8:10 AM 08/12/2023 2:55 PM 05/05/2024 2:37 PM 09/03/2024 1:45 PM 10/05/2024 8:33 AM Vitals Systolic 150 163 133 138 128 Diastolic 102 109 86 78 84 Heart Rate 65 71 62 Temp 36.6 C Resp 18 16 18 18 Height (cm) 175.3 cm 175.3 cm 175.3 cm 175.3 cm 175.3 cm Weight (kg) 118.933 kg 118.842 kg 114.397 kg 101.152 kg 113.4 kg BMI 38.72 kg/m2 38.69 kg/m2 37.24 kg/m2 32.93 kg/m2 36.92 kg/m2 BSA (m2) 2.41 m2 2.41 m2 2.36 m2 2.22 m2 2.35 m2 Visit Report Report Report Report My independent interpretation of radiographic testing shows: Right hip x-rays demonstrates preserved joint space. There is reduced head neck offset with evidence of a cam deformity in addition to ossification of the labrum. MRI of the lumbar spine also demonstrates L4-L5 and L5-S1 disc herniations. New Patient Under 50: XR Hip (AP Pelvis Standing with Jeff Marker / Frog Leg Lateral Standing / 45-Degree Hdz / False Profile Standing) Result Date: 10/05/2024 Ossification at the superior rim of the right acetabulum and osseous bump at the anterolateral aspect of the femoral head neck junction that can be seen in the setting of femoral acetabular impingement. CRITICAL RESULT: No. COMMUNICATION: Per this written report. Drafted by Ravi Bentley MD on 10/05/2024 8:46 AM Final report signed by Ravi Bentley MD on 10/05/2024 8:49 AM XR Lower Extremity Leg Length Evaluation Result Date: 10/05/2024 Ossification at the superior rim of the right acetabulum and osseous bump at the anterolateral aspect of the femoral head neck junction that can be seen in the setting of femoral acetabular impingement. CRITICAL RESULT: No. COMMUNICATION: Per this written report. Drafted by Ravi Bentley MD on 10/05/2024 8:46 AM Final report signed by Ravi Bentley MD on 10/05/2024 8:49 AM Notes reviewed: outside physician Results of tests reviewed: previous radiographs Assessment and plan: Hip pain, right Femoroacetabular impingement of right hip Lumbar disc disease Orders Placed This Encounter New Patient Under 50: XR Hip (AP Pelvis Standing with Jeff Marker / Frog Leg Lateral Standing / 45-Degree Hdz / False Profile Standing) Pre-Op: XR Hip-Ankle Limb Alignment Ambulatory referral to Interventional Pain meloxicam (Mobic) 15 MG tablet No follow-ups on file. Right hip pain with radiographic evidence of femoral acetabular impingement. We have reviewed the incidence of labral tears being over 70%. Given the lack of anterior impingement findings on exam we would be somewhat atypical for his pain presentation given the location. Will plan to get a right hip intra-articular injection. If he sees improvement in his pain and symptoms could be a candidate for hip arthroscopy with labral debridement and femoral osteochondroplasty. The risks, benefits, and alternatives to surgery were explained to include but not limited to infection, bleeding, anesthesia risks, damage to adjacent structures, need for future surgery, and blood clot. If he fails to see relief then I think his pain is more stemming from the lumbar disc herniations. He has significant fatstranding seen in the MRI involving the abductor musculature indicative of chronic denervation to these muscles from the lumbar spine. In the interim will have him remain on gabapentin. Main risk is somnolence. We will also prescribe meloxicam to take daily. Main risk is gastritis. This problem is a chronic problem with some progression . Minor procedure risk factors were discussed, (Injection site pain, infection, inflammation) and decision was made for procedure. Rx management per plan. documented in this encounter Plan of Treatment Scheduled Orders Name Type Priority Associated Diagnoses Orde r Schedule Pre-Op: XR Hip-Ankle Limb Alignment Imaging Routine Hip pain, right 1 Occurrences starting 10/01/2024 until 04/04/2026 Scheduled Referrals Name Type Priority Associated Diagnoses Order Schedule Ambulatory referral to Interventional Pain Outpatient Referral Routine Femoroacetabular impingement of right hip Lumbar disc disease Expected: 10/05/2024 (Approximate), Expires: 04/08/2026 documented as of this encounter Results * New Patient Under 50: XR Hip [...] this encounter Visit Diagnoses Diagnosis Hip pain, right- Primary Pain in joint, pelvic region and thigh Femoroacetabular impingement of right hip Lumbar disc disease Other and unspecified disc disorder of lumbar region Hip pain, right Pain in joint, pelvic [...] documented as of this encounter Care Teams Flag Signalman Relationship Specialty Start Date End Date Isaura Haque APRN [address] [place] [address] PCP - General 07/10/23 Elsy Velez MD [address] [facility] [address] [place] [address] Surgeon Neurosurgery 08/12/23 documented as of this encounter
--- OUTSIDE RECORDS SUMMARY | 2024-10-14 15:01 | XMS_ITS | Encounter Summary ---
Author Organization Healthcare Address [address] [place] [address] Care Team Providers Care Laboratory Chemical Assistant Name Role Phone Isaura Haque APRN Primary Care Provider [phone] Elsy Velez MD Unavailable Encounter Details Date Type Department Care Team (Late st Contact Info) Description 01/23/2018 Orders Only External Location [address] [place] [address] Provider, External Social History Tobacco Use Types [...] on filedocumented in this encounter Care Teams Laboratory Chemical Assistant Relationship Specialty Start Date End Date Isaura Haque APRN [address] [place] [address] PCP - General 07/10/23 Elsy Velez MD [address] [place] [address] Surgeon Neurosurgery 08/12/23 documented as of this encounter
--- OUTSIDE RECORDS SUMMARY | 2024-10-14 15:01 | XMS_ITS | Encounter Summary ---
Author Organization Healthcare Address [address] [place] [address] Care Team Providers Care Faculty Support Coordinator Name Role Phone Isaura Haque MACHINE CELL TUBER Primary Care Provider [phone] Elsy Velez MD Unavailable Encounter Details Date Type Department Care Team (Late st Contact Info) Description 09/24/2024 Orders Only External Location [address] [place] [address] Isaura Haque, MACHINE CELL TUBER [address] [place], [place] [id number] Social History Tobacco Use Types Packs/Day Years [...] Name Priority Date/Time Associated Diagnosis Comments MR NEURO OUTSIDE IMAGES 09/24/2024 4:04 PM EDT documented in this encounter Results * MR NEURO OUTSIDE IMAGES (09/24/2024 4:04 PM EDT) Anatomical Region Laterality Modality Magnetic Resonan ce 09/24/2024 4:04 PM EDT us Isaura Haque MACHINE CELL TUBER IMG MRI PROCEDURES Final Resu lt documented in this encounter Visit Diagnoses Not [...] documented as of this encounter Care Teams Faculty Support Coordinator Relationship Specialty Start Date End Date Isaura Haque, MACHINE CELL TUBER [address] [place] [address] PCP - General 07/10/23 Elsy Velez MD [address] [facility] [address] [place] [address] Surgeon Neurosurgery 08/12/23 documented as of this encounter
--- OUTSIDE RECORDS SUMMARY | 2024-10-14 15:01 | XMS_ITS | Encounter Summary ---
Author Organization Healthcare Address [address] [place] [address] Care Team Providers Care Metal Machine Setter Name Role Phone Isaura Haque ACCOUNT MAINTENANCE REPRESENTATIVE Primary Care Provider Elsy Velez MD Unavailable Encounter Details Date Type Department Care Team (Late st Contact Info) Description 09/24/2024 Orders Only External Location [address] [place] [address] Isaura Haque, ACCOUNT MAINTENANCE REPRESENTATIVE [address] [place], [place] [address] Social History Tobacco Use Types Packs/Day Years [...] Name Priority Date/Time Associated Diagnosis Comments MR MSK OUTSIDE IMAGES 09/24/2024 4:04 PM EDT documented in this encounter Results * MR MSK OUTSIDE IMAGES (09/24/2024 4:04 PM EDT) Anatomical Region Laterality Modality Magnetic Resonan ce 09/24/2024 4:04 PM EDT us Isaura Haque APRN IMG MRI PROCEDURES Final Resu lt documented [...] documented as of this encounter Care Teams Metal Machine Setter Relationship Specialty Start Date End Date Isaura Haque, SHANTI [address] [place] [address] PCP - General 07/10/23 Elsy Velez MD [address] [facility] [address] [place] [address] Surgeon Neurosurgery 08/12/23 documented as of this encounter
--- OUTSIDE RECORDS SUMMARY | 2024-10-14 15:01 | XMS_ITS | Clinical Summary ---
Author Organization [facility] Address [address] [place] [address] Care Team Providers Care Auto Body Estimator Name Role Phone Isaura Haque APRN Primary Care Provider [phone] Elsy Velez MD Unavailable Allergies No known active allergies Medications atorvastatin (Lipitor) 80 MG tablet Take 1 tablet (80 mg) by mouth every night. 4 Active levothyroxine (Synthroid, Levoxyl) 175 MCG tablet Take 1 tablet (175 mcg) by mouth 1 (one) time each day. 4 Active losartan-hydroCHLO ROthiazide (Hyzaar) 100-25 MG tablet Take 1 tablet [...] 1 (one) time per week. 4 Active acetaminophen-code ine (Tylenol w/ Codeine #3) 300-30 MG tablet TAKE ONE TABLET BY MOUTH TWICE DAILY NEEDED FOR PAIN MAY CAUSE DROWSINESS 5 Active gabapentin (Neurontin) 300 MG capsule TAKE ONE CAPSULE BY MOUTH THREE TIMES DAILY MAY CAUSE DROWSINESS 5 Active meloxicam (Mobic) 15 MG tablet Take 1 tablet by mouth daily. 30 tablet 11 5 Active Active Problems Problem Noted Date Diagnosed [...] Encounters Date Type Department Care Team Description 10/06/2024 Telephone Medical Office Building Surgery Spine & Joint [address] [facility], [address] [place] [address] Ki Khoury MD [facility] Clinical Concern/Question 10/05/2024 8:40 AM EDT Office Visit Medical Office Building Surgery Spine & Joint [address] [facility], [address] [place] [address] Ki Khoury MD Hip pain, right (Primary Dx); Femoroacetabular impingement of right hip; Lumbar disc disease 10/05/2024 8:15 AM EDT - 10/05/2024 11:59 PM EDT Hospital Encounter Medical Office Building Radiology [address] [place] [address] Hip pain, right Discharge Disposition: Home or Self Care 10/05/2024 Travel 09/24/2024 Orders Only External Location [address] [place] [address] Isaura Haque, ASPHALT WORKER 09/24/2024 Orders Only External Location [address] [place] [address] Isaura Haque, ASPHALT WORKER 09/03/2024 1:20 PM EDT Office Visit [facility] [address] [place] [address] Faustino Umaña MD JUDITH (acute kidney injury) (CMS/HCC) (Primary Dx); Stage 3a chronic kidney disease (CMS/HCC); DAKOTA (obstructive sleep apnea); Hypertensive chronic kidney disease with stage 1 through stage 4 chronic kidney disease, or unspecified chronic kidney disease; Other hyperlipidemia; Type 2 diabetes mellitus with chronic kidney disease, without long-term current use of insulin, unspecified CKD stage (CMS/HCC) 09/03/2024 Travel from Last 3 Months Social [...] Pulse 62 10/05/2024 8:33 AM EDT Temperature 36.6 C (97.8 F) 05/05/2024 2:37 PM EST Respiratory Rate 18 10/05/2024 8:33 AM EDT Oxygen Saturation 96% 10/05/2024 8:33 AM EDT Inhaled Oxygen Concentration - - Weight 113 kg (250 lb) 10/05/2024 8:33 AM EDT Height 175.3 cm (5' 9 ) 10/05/2024 8:33 AM EDT Body Mass Index 36.92 10/05/2024 8:33 AM EDT Plan of Treatment Health Maintenance Due Date Last Done Comments [facility]-Diabetes: Hemoglobin A1C 1977 [facility]-HIV Screening 1977 [facility]-Hepatitis C Screening 1977 [facility]-/Child/Adol SDOH Screenings 1977 [id number] Vaccine (#1) 1982 Diabetes: Dental Exam 1987 [...] of 2) 2027 [facility]-Obesity Intervention Completed 025, 09/03/2024, 05/05/2024, Additional history exists HPV Vaccines Aged Out [...] on patient's age to complete this topic Procedures Procedure Name Priority Date/Time Associated Diagnosis Comments XR LOWER EXTREMITY LEG LENGTH EVALUATION Routine 10/05/2024 8:26 AM EDT Hip pain, right XR HIP RIGHT 4+ VIEWS Routine 10/05/2024 8:26 AM EDT Hip pain, right MR MSK OUTSIDE IMAGES 09/24/2024 4:04 PM EDT MR NEURO OUTSIDE IMAGES 09/24/2024 4:04 PM EDT from Last 3 Months Results * New Patient Under 50: XR [...] IMG XR PROCEDURES Final Resu lt * XR Lower Extremity Leg Length Evaluation [...] IMG XR PROCEDURES Final Resu lt * MR NEURO OUTSIDE IMAGES (09/24/2024 4:04 PM EDT) Anatomical Region Laterality Modality Magnetic Resonan ce 09/24/2024 4:04 PM EDT Isaura Haque ASPHALT WORKER IMG MRI PROCEDURES Final Resu lt * MR MSK OUTSIDE IMAGES (09/24/2024 4:04 PM EDT) Anatomical Region Laterality Modality Magnetic Resonan ce 09/24/2024 4:04 PM EDT Isaura Haque ASPHALT WORKER IMG MRI PROCEDURES Final Resu lt from Last 3 Months Insurance Care Teams Auto Body Estimator Relationship Specialty Start Date End Date Isaura Haque APRN [address] [place] [id number] PCP - General 07/10/23 Elsy Velez MD [address] [facility] [address] [place] [address] Surgeon Neurosurgery 08/12/23
--- OUTSIDE RECORDS SUMMARY | 2024-10-14 15:01 | XMS_ITS | Encounter Summary ---
Author Organization Healthcare Address [address] [place] [address] Care Team Providers Care Link Wire Fabric Machine Operator Name Role Phone Isaura Haque APRN Primary Care Provider [phone] Elsy Velez MD Unavailable Reason for Visit * Reason Onset Date Comments HCN Clinical Concern/Question 10/06/2024 Encounter Details Date Type Department Care Team ([facility] st Contact Info) Description 10/06/2024 Telephone Medical Office Building Surgery Spine & Joint [address] [facility], [address] [place] [address] Ki Khoury MD [address] [facility] [address] [place] [address] HCN Clinical Concern/Question Social History Tobacco Use Types Packs/Day Years [...] on file documented as of this encounter Miscellaneous Notes * Telephone Encounter - Symone Solis - 10/06/2024 2:27 PM EDT Patient is established at [facility] Kailyn Samuel. Requests referral for injection be sent to their office. * Telephone Encounter - Noemí Morris - 10/06/2024 1:55 PM EDT Paperwork/Documentation Request Patient Name: Garrett Turcios Type: patients is requesting we fax patient referral to [facility]'s Pain Management Due Date: unknown date Send To: fax: [phone] Best contact number: [phone] (mobile) Optimal time of day to reach caller: ANYTIME Additional comments/information from caller: None Note: Please do not reply to this message. Follow-up communication and further actions as a result of this message need to be communicated with the patient directly, if the patient is not active onMyChart. If the patient is active on MyChart, they will receive notification of the communication/outcome via [employer]. documented in this encounter Plan of Treatment Not on [...] documented as of this encounter Care Teams Link Wire Fabric Machine Operator Relationship Specialty Start Date End Date Isaura Haque APRN [address] [place] [address] PCP - General 07/10/23 Elsy Velez MD [address] [place] [address] Surgeon Neurosurgery 08/12/23 documented as of this encounter
--- OUTSIDE RECORDS SUMMARY | 2024-10-14 15:01 | XMS_ITS | Encounter Summary ---
Author Organization [facility] Address [address] [place] [address] Care Team Providers Care Data Recovery Planner Name Role Phone Isaura Haque APRN Primary Care Provider [phone] Elsy Velez MD Unavailable Encounter Details Date Type Department Care Team (Latest Contact Info) Description 10/05/2024 Travel Social History Tobacco Use Types Packs/Day [...] documented as of this encounter Care Teams Data Recovery Planner Relationship Specialty Start Date End Date Isaura Haque APRN [address] [place] [address] PCP - General 07/10/23 Elsy Velez MD [address] [facility] [address] [place] [phone] Surgeon Neurosurgery 08/12/23 documented as of this encounter
--- OUTSIDE RECORDS SUMMARY | 2024-10-14 15:01 | XMS_ITS | Encounter Summary ---
Author Organization [facility] Address [address] [place] [address] Care Team Providers Care Website Optimization Strategist Name Role Phone Isaura Haque APRN Primary Care Provider [phone] Elsy Velez MD Unavailable Encounter Details Date [...] documented as of this encounter Care Teams Website Optimization Strategist Relationship Specialty Start Date End Date Isaura Haque APRN [address] [place] [address] PCP - General 07/10/23 Elsy Velez MD [address] [place] [address] Surgeon Neurosurgery 08/12/23 documented as of this encounter
[2024-10-14 15:09] VITALS: BP 135/86; PULSE 71; RESP 12; O2SAT 96; BMI 38.4
--- NOTE | 2024-10-14 15:16 | EXP.PAIN.SOA ---
[facility] Disclaimer: The information contained in this section may have been updated after the patient was seen, as this information can be updated by other users. Medical History Screening for HIV (human immunodeficiency virus) Encounter for hepatitis C screening test for low risk patient Bilateral otitis media Influenza A Fatty liver Encounter for screening for diabetes mellitus Thyroid cancer 2017 Right knee meniscal tear REPAIRED IN SX. Bulging disc Hypothyroid Gout HTN (hypertension) Enthesopathy of left ankle History of fracture of left ankle Left Achilles bursitis Achilles bursitis of left lower extremity Chronic pain of left ankle Achilles tendinitis Exposure to COVID-19 virus Surgical History H/O thyroidectomy 02/2018, Dr. Devries H/O repair of rotator cuff LEFT Family History Other No significant family history Social History Smoking Status: Never smoker alcohol intake: never substance use type: denies use current occupational status: other Travel in the last 8 weeks?: None household members: spouse housing: house marital status: PM Subjective & Objective Subjective Subjective:: Patient is a pleasant 49-year-old male who presents today for follow-up and worsening pain. Today he does rate his pain a 4 out of 10 currently and states it is still on the right there along his right hip/buttocks area. Patient does state that the pain is much worse in the mornings and rated it even an 8 out of 10 at that point. He states that with certain movements or increased activity it will get much more severe. Patient has taken his gabapentin and meloxicam and that does ease down some of the pain. Patient was seen by neurosurgery for possible labrum tear. We did get a copy of his note and the patient does state that he was requesting additional injection therapy specifically for the hip. Patient denies any new falls or changes. He does state it is still a fairly constant pain that does interfere with his ability to perform activities of daily living such as cooking and cleaning. Patient was given meloxicam 15 mg daily from the neurosurgeons office and he does state this is helping. Patient does state that he has been taking it at night and then he will take his gabapentin in the morning and then when he goes to work he does take additional ibuprofen about 3 tablets. Patient does state that if we can do the injection as soon as possible it would be very beneficial. Patient is scheduled to leave out of state on October 30. His Jorge L has been reviewed and is appropriate. Review of Systems: General: No recent weight changes, no fever, no sleep disturbances Respiratory: No cough, no shortness of air, no recurring pulmonary infections Cardiovascular/peripheral vascular: No chest pain, no palpitations, no edema, no shortness of breath Gastrointestinal: No new onset incontinence, normal bowel movements reported Genitourinary: No new onset incontinence Musculoskeletal: Right hip pain, right buttocks pain Psychiatric: [Normal mood/affect] Neurological: [Denies weakness in extremities], [denies balance issues] Pain at rest (0-10 scale): 8 Objective Objective:: Physical Exam: General: Alert and oriented x3, no acute distress, pleasant and cooperative Lungs: Respirations even and unlabored, symmetrical chest expansion Eyes: PERRL Musculoskeletal: Flexion and extension of lumbar [spine] somewhat guarded secondary to pain, [antalgic gait noted] point tenderness right buttocks Neurological: Speech clear, no gross sensory deficit Has patient had previous pain injection?: No Conservative treatment options previously tried: Home exercise plan Length of treatment: Longer than 12 weeks Meds Home Medications and Allergies Home Medications ?Medication ?Instructions ?Recorded ?Confirmed ?Type atorvastatin 80 mg tablet 80 mg PO HS #90 tabs 07/07/23 10/14/24 Rx blood sugar diagnostic (OneTouch #100 ea 07/07/23 10/14/24 Rx Verio test strips) blood-glucose meter #1 ea 07/07/23 10/14/24 Rx lancets 33 gauge #100 ea 07/07/23 10/14/24 Rx ondansetron 4 mg disintegrating 4 mg PO Q8H PRN nausea and 04/29/24 10/14/24 Rx tablet vomiting #30 tabs semaglutide 0.25 mg or 0.5 mg (2 0.5 mg (0.736 mL) SQ WEEKLY #3 mL 05/10/24 10/14/24 Rx mg/3 mL) subcutaneous pen injector (Ozempic) levothyroxine 175 mcg tablet 175 mcg PO DAILY 09/16/24 10/14/24 History losartan 100 1 tab PO DAILY 09/16/24 10/14/24 History mg-hydrochlorothiazide 25 mg tablet gabapentin 300 mg capsule 300 mg PO TID #90 caps 09/21/24 10/14/24 Rx acetaminophen 300 mg-codeine 30 mg 1 tab PO BID PRN pain #28 tabs 09/29/24 10/14/24 Rx tablet fenofibrate nanocrystallized 145 145 mg PO DAILY #90 tabs 10/13/24 10/14/24 Rx mg tablet New Prescriptions to Start Prescriptions: Allergies Allergy/AdvReac Type Severity Reaction Status Date / Time No Known Allergies Allergy Verified 09/27/24 10:29 Assessment and Plan *Assessment and plan (1) Greater trochanteric bursitis of right hip: Status: Acute Category: Medical Code(s): M70.61 - Trochanteric bursitis, right hip (2) Myofascial pain on right side: Status: Acute Category: Medical Code(s): M79.18 - Myalgia, other site (3) Piriformis syndrome of right side: Status: Acute Category: Medical Code(s): G57.01 - Lesion of sciatic nerve, right lower limb Plan I did review over with the patient regarding Dr. Khoury's note requesting that we try a right intra-articular hip injection. Risk and benefits were discussed with the patient and he would like to proceed forward with this option. This is to evaluate whether or not if the patient does have a labrum tear and would require surgical intervention. Patient has tried and failed conservative therapy including oral medication, heat and ice, topicals, at home stretching exercise for longer than 6 weeks. We did also get of physician guided exercise printouts during today's visit on hip pain as well as low back pain for him to continue at home. I did also funeral counselor the patient that he should not be taking any other anti-inflammatory medication such as ibuprofen with the meloxicam. Patient acknowledges understanding. I did recommend that he try Tylenol with the meloxicam. Patient will be scheduled for a right intra-articular hip injection under fluoroscopy. Patient has been instructed to contact the clinic with any concerns before the next appointment. Dr. Montgomery has reviewed this note and agrees with this plan of care. This note was dictated using voice recognition software and make contain errors or omissions. All injections are used with Lidocaine, Bupivacaine and dexamethasone. Occasionally urine drug screen is needed to verify patient's compliance with our office pain contract. This is ordered based off specific treatments related to chronic pain with the potential to abuse certain medications.
== END 2024-10-14 23:59 | disposition home or self-care (01) ==
PROVIDERS: PCP Nurse Practitioner Family; Visit Provider Nurse Practitioner Family
DX: M70.61 Trochanteric bursitis, right hip (principal); M79.18 Myalgia, other site; G57.01 Lesion of sciatic nerve, right lower limb
CPT/HCPCS: 99212; G0463

== ENCOUNTER 2024-10-26 09:11 | Day surgery (SDC) | payer OTHER, SELFPAY ==
[2024-10-26 09:26] VITALS: BP 132/81; PULSE 69; RESP 18; O2SAT 98; BMI 38.4
[2024-10-26] MEDS: DEXAMETHASONE 10MG/ML 1ML VIAL 10 MG (09:37)
[2024-10-26] MEDS: BUPIVACAINE 0.25% 10ML INJ 25 MG IJ (09:37)
[2024-10-26] MEDS: LIDOCAINE 1% 5ML PF VIAL 5 ML (09:37)
[2024-10-26 09:38] VITALS: BP 134/87; PULSE 60; RESP 18; O2SAT 97
[2024-10-26 09:39] VITALS: BP 134/87; PULSE 60; RESP 18; O2SAT 97
[2024-10-26 09:49] VITALS: BP 139/75; PULSE 62; RESP 18; O2SAT 98
--- NOTE | 2024-10-26 09:50 | EXP.PAIN.PRO ---
Procedure Date: 10/26/24 Time: 09:40 Anesthesiologist:: Charles Vaz CRNA Complications:: None Pre-procedure Diagnosis:: DJD right hip. Chronic right hip pain. Suspected right labral hip tear. Post-procedure Diagnosis:: Same. Indications for Procedure:: Patient is a very pleasant 49-year-old male who comes our clinic today for right intra-articular hip injection of cortisone local anesthetic. Patient describes right hip pain as constant, dull, aching. Pain is anterior as well as posterior in the hip region. Difficulty transitioning from sitting to standing. Difficulty with ambulation. Difficulty with abduction. Right hip MRI shows hip arthropathy and suspected labral tear. Procedure Details:: Details of the procedure were explained to the patient. The patient was taken to procedure room placed in the supine position. The area over the right hip was cleaned using chlorhexidine as a cleansing solution. Using fluoroscopy guidance a 3 and half inch 22-gauge spinal needle was used to access the right hip joint without difficulty. After negative aspiration 3 cc of 1% lidocaine +3 cc of 0.25% Marcaine and 10 mg of dexamethasone was injected. Needle was withdrawn. Band-Aid applied. Patient tolerated procedure without difficulty. There are no complications. Plan and Disposition:: Patient was discharged without incident.
== END 2024-10-26 09:49 | disposition home or self-care (01) ==
PROVIDERS: PCP Nurse Practitioner Family; Visit Provider Nurse Anesthetist, Certified Registered
DX: G89.29 Other chronic pain (principal); M16.11 Unilateral primary osteoarthritis, right hip; M10.9 Gout, unspecified; I10 Essential (primary) hypertension; E03.9 Hypothyroidism, unspecified; Z85.850 Personal history of malignant neoplasm of thyroid; Z79.899 Other long term (current) drug therapy
CPT/HCPCS: 20610; 77002; J0665; J1100; J2003

== ENCOUNTER 2024-11-11 14:46 | Outpatient (POV) | payer OTHER, SELFPAY ==
--- OUTSIDE RECORDS SUMMARY | 2024-10-05 08:15 | XMS_ITS | Encounter Summary ---
Author Organization Healthcare Address [address] [place] [address] Care Team Providers Care Process Safety Management Engineer Name Role Phone Isaura Haque APRN Primary Care Provider [phone] Elsy Velez MD Unavailable Encounter Details Date Type Department Care Team (Latest Contact Info) Description 10/05/2024 8:15 AM EDT - 10/05/2024 11:59 PM EDT Hospital Encounter Medical Office Building Radiology [facility] [place] [address] Hip pain, right Discharge Disposition: Home or Self Care Social History Tobacco Use Types Packs/Day Years Used Date Smoking Tobacco: Never Passive Smoke Exposure: Never Smokeless Tobacco: Never Alcohol Use Standard [...] on file documented as of this encounter Medications at Time of Discharge acetaminophen-codei ne (Tylenol w/ Codeine #3) 300-30 MG tablet TAKE ONE TABLET BY MOUTH TWICE DAILY NEEDED FOR PAIN MAY CAUSE DROWSINESS 09/29/2024 atorvastatin (Lipitor) 80 MG tablet Take 1 tablet (80 mg) by mouth every night. 07/07/2023 Blood Glucose Monitoring Suppl ([employer] Verio Flex System) w/Device kit use as directed 07/07/2023 fenofibrate (Tricor) 145 MG tablet Take 1 tablet (145 mg) by mouth 1 (one) time each day. 08/05/2023 gabapentin (Neurontin) 300 MG capsule TAKE ONE CAPSULE BY MOUTH THREE TIMES DAILY MAY CAUSE DROWSINESS 09/21/2024 levothyroxine (Synthroid, Levoxyl) 175 MCG tablet Take 1 tablet (175 mcg) by mouth 1 (one) time each day. 06/23/2023 losartan-hydroCHLOR Othiazide (Hyzaar) 100-25 MG tablet Take 1 tablet by mouth 1 (one) time each day. 05/27/2023 meloxicam (Mobic) 15 MG tablet Take 1 tablet by mouth daily. 30 tablet 11 10/05/2024 ondansetron ODT (Zofran-ODT) 4 MG disintegrating tablet Take 1 tablet (4 mg) by mouth if needed. 04/29/2024 Ozempic, 1 MG/DOSE, 4 MG/3ML solution pen-injector Inject as directed 1 (one) time per week. 04/19/2024 documented as of this encounter Plan of Treatment Scheduled Orders Name Type Priority Associated Diagnoses Orde r Schedule Pre-Op: XR Hip-Ankle Limb Alignment Imaging Routine Hip pain, right Once for 1 Occurrences starting 10/05/2024 until 10/05/2024 documented as of this encounter Procedures Procedure Name Priority Date/Time Associated Diagnosis Comments XR HIP RIGHT 4+ VIEWS Routine 10/05/2024 8:26 AM EDT Hip pain, right XR LOWER EXTREMITY LEG LENGTH EVALUATION Routine 10/05/2024 8:26 AM EDT Hip pain, right documented in this encounter Results * XR Lower Extremity Leg Length Evaluation (10/05/2024 8:26 AM EDT) Anatomical Region Laterality Modality Lower Extremities Digital Radiog zeeshan Impressions 10/05/2024 8:49 AM EDT Ossification at the superior rim of the right acetabulum and osseous bump at the anterolateral aspect of the femoral head neck junction that can be seen in the setting of femoral acetabular impingement. CRITICAL RESULT: No. COMMUNICATION: Per this written report. Drafted by Ravi Bentley MD on 10/05/2024 8:46 AM Final report signed by Ravi Bentley MD on 10/05/2024 8:49 AM Narrative 10/05/2024 8:49 AM EDT CLINICAL INDICATION: pre-op TECHNIQUE: XR LOWER EXTREMITY LEG LENGTH EVALUATION, XR HIP RIGHT 4+ VIEWS COMPARISON: MRI dated September 24, 2024. FINDINGS: 4 views of the right hip show normal bilateral hip joint space and alignment. Ossification at the superior rim of the bilateral acetabulum, right worse than left. Osseous bump at the anterior lateral aspect of the femoral head neck junction on the Hdz view. Pubic symphysis and sacroiliac joints are normal. Standing AP view of the bilateral lower extremity from hip to ankle shows normal bilateral hip, knee and ankle joint space and alignment. No leg length discrepancy. Procedure Note Ravi Bentley MD - 10/05/2024 CLINICAL INDICATION: pre-op TECHNIQUE: XR LOWER EXTREMITY LEG LENGTH EVALUATION, XR HIP RIGHT 4+ VIEWS COMPARISON: MRI dated September 24, 2024. FINDINGS: 4 views of the right hip show normal bilateral hip joint space andalignment. Ossification at the superior rim of the bilateral acetabulum,right worse than left. Osseous bump at the anterior lateral aspect of thefemoral head neck junction on the Hdz view. Pubic symphysis andsacroiliac joints are normal. Standing AP view of the bilateral lower extremity from hip to ankle showsnormal bilateral hip, knee and ankle joint space and alignment. No leglength discrepancy. IMPRESSION: Ossification at the superior rim of the right acetabulum and osseous bumpat the anterolateral aspect of the femoral head neck junction that can beseen in the setting of femoral acetabular impingement. CRITICAL RESULT: No. COMMUNICATION: Per this written report. Drafted by Ravi Bentley MD on 10/05/2024 8:46 AM Final report signed by Ravi Bentley MD on 10/05/2024 8:49 AM us Ki Khoury MD IMG XR PROCEDURES Final Resu lt * New Patient Under 50: XR Hip (AP Pelvis Standing with Jeff Marker / Frog Leg Lateral Standing / 45-Degree Hdz / False Profile Standing) (10/05/2024 8:26 AM EDT) Anatomical Region Laterality Modality Lower Extremities, Hip Right Digital R adiography Impressions 10/05/2024 8:49 AM EDT Ossification at the superior rim of the right acetabulum and osseous bump at the anterolateral aspect of the femoral head neck junction that can be seen in the setting of femoral acetabular impingement. CRITICAL RESULT: No. COMMUNICATION: Per this written report. Drafted by Ravi Bentley MD on 10/05/2024 8:46 AM Final report signed by Ravi Bentley MD on 10/05/2024 8:49 AM Narrative 10/05/2024 8:49 AM EDT CLINICAL INDICATION: pre-op TECHNIQUE: XR LOWER EXTREMITY LEG LENGTH EVALUATION, XR HIP RIGHT 4+ VIEWS COMPARISON: MRI dated September 24, 2024. FINDINGS: 4 views of the right hip show normal bilateral hip joint space and alignment. Ossification at the superior rim of the bilateral acetabulum, right worse than left. Osseous bump at the anterior lateral aspect of the femoral head neck junction on the Hdz view. Pubic symphysis and sacroiliac joints are normal. Standing AP view of the bilateral lower extremity from hip to ankle shows normal bilateral hip, knee and ankle joint space and alignment. No leg length discrepancy. Procedure Note Ravi Bentley MD - 10/05/2024 CLINICAL INDICATION: pre-op TECHNIQUE: XR LOWER EXTREMITY LEG LENGTH EVALUATION, XR HIP RIGHT 4+ VIEWS COMPARISON: MRI dated September 24, 2024. FINDINGS: 4 views of the right hip show normal bilateral hip joint space andalignment. Ossification at the superior rim of the bilateral acetabulum,right worse than left. Osseous bump at the anterior lateral aspect of thefemoral head neck junction on the Hdz view. Pubic symphysis andsacroiliac joints are normal. Standing AP view of the bilateral lower extremity from hip to ankle showsnormal bilateral hip, knee and ankle joint space and alignment. No leglength discrepancy. IMPRESSION: Ossification at the superior rim of the right acetabulum and osseous bumpat the anterolateral aspect of the femoral head neck junction that can beseen in the setting of femoral acetabular impingement. CRITICAL RESULT: No. COMMUNICATION: Per this written report. Drafted by Ravi Bentley MD on 10/05/2024 8:46 AM Final report signed by Ravi Bentley MD on 10/05/2024 8:49 AM Ki Khoury MD IMG XR PROCEDURES Final Resu lt documented in this encounter Visit Diagnoses Diagnosis Hip pain, right Pain in joint, pelvic region and thigh documented in this encounter Additional Health Concerns Assessment Noted Time PHQ-9 Depression Total Score: 0 05/05/19 25 2:45 PM EST A fall risk assessment has been complete d for the patient 10/05/2024 8:33 AM EDT A Body Mass Index follow-up plan has been documented for the patient 10/05/2024 9:22 AM EDT documented as of this encounter Care Teams Process Safety Management Engineer Relationship Specialty Start Date End Date Isaura Haque APRN [address] [place] [address] PCP - General 07/10/23 Elsy Velez MD [address] [place] [address] Surgeon Neurosurgery 08/12/23 documented as of this encounter
--- OUTSIDE RECORDS SUMMARY | 2024-10-05 08:40 | XMS_ITS | Encounter Summary ---
Author Organization Healthcare Address [address] [place] [address] Care Team Providers Care Floor Coverings Salesperson Name Role Phone Isaura Haque APRN Primary Care Provider [phone] Elsy Velez MD Unavailable Reason for Referral * Consultation (Routine) - Authorized Specialty Diagnoses / Procedures Referred By Connie salazar Referred To Contact Pain Medicine Diagnoses Femoroacetabular impingement of right hip Lumbar disc disease Ki Khoury MD [address] [place] [address] Phone: tel: fax: Referral ID Status Reason Start Date Expiration Date Visits Requested Visits Authorized [id number] Authorized Specialty Services Required 10/05/2024 04/06/2026 1 1 Scheduling Instructions Right hip Intra articular steroid Reason for Visit * Reason Comments Pain * Consultation (Urgent) - Closed Specialty Diagnoses / Procedures Referred By Connie salazar Referred To Contact Diagnoses Labral tear of right hip joint System, Provider Not In, [address] [place] [address] Referral ID Status Reason Start Date Expiration Date Visits Re quested Visits Authorized [id number] Closed 09/28/2024 03/30/2026 1 1 Encounter Details Date Type Department Care Team ([facility] st Contact Info) Description 10/05/2024 8:40 AM EDT Office Visit Medical Office Building Surgery Spine & Joint [address], [address] [place] [address] Ki Khoury MD [address] [place] [address] Hip pain, right (Primary Dx); [...] Patient follows with a pain clinic in [place] for injections. Past Medical History[1] Surgical History[2] [...] mouth every night. Blood Glucose Monitoring Suppl ([employer] Verio Flex System) w/Device kit use as [...] documented as of this encounter Care Teams Floor Coverings Salesperson Relationship Specialty Start Date End Date Isaura Haque APRN [address] [place] [address] PCP - General 07/10/23 Elsy Velez MD [address] [facility] [address] [place] [address] Surgeon Neurosurgery 08/12/23 documented as of this encounter
--- OUTSIDE RECORDS SUMMARY | 2024-11-11 14:49 | XMS_ITS | Encounter Summary ---
Author Organization Healthcare Address [address] [place] [address] Care Team Providers Care Geochemical Manager Name Role Phone Isaura Haque PHOTOGRAPHER NEWS Primary Care Provider [phone] Elsy Velez MD Unavailable Encounter Details Date Type Department Care Team (Late st Contact Info) Description 09/24/2024 Orders Only External Location [address] [place] [address] Isaura Haque, PHOTOGRAPHER NEWS [address] [place], [place] [id number] Social History Tobacco Use Types Packs/Day Years [...] 09/24/2024 4:04 PM EDT us Isaura Haque PHOTOGRAPHER NEWS IMG MRI PROCEDURES Final Resu lt documented [...] documented as of this encounter Care Teams Geochemical Manager Relationship Specialty Start Date End Date Isaura Haque, PHOTOGRAPHER NEWS [address] [place] [address] PCP - General 07/10/23 Elsy Velez MD [address] [facility] [address] [place] [address] Surgeon Neurosurgery 08/12/23 documented as of this encounter
--- OUTSIDE RECORDS SUMMARY | 2024-11-11 14:49 | XMS_ITS | Encounter Summary ---
Author Organization Healthcare Address [address] [place] [address] Care Team Providers Care Operating System Designer Name Role Phone Isaura Haque HOME HEALTH ADMINISTRATOR Primary Care Provider [phone] Elsy Velez MD Unavailable Encounter Details Date Type Department Care Team (Late st Contact Info) Description 09/24/2024 Orders Only External Location [address] [place] [address] Isaura Haque, HOME HEALTH ADMINISTRATOR [address] [place], [place] [id number] Social History Tobacco Use Types Packs/Day Years [...] documented as of this encounter Care Teams Operating System Designer Relationship Specialty Start Date End Date Isaura Haque, SHANTI [address] [place] [address] PCP - General 07/10/23 Elsy Velez MD [address] [facility] [address] [place] [address] Surgeon Neurosurgery 08/12/23 documented as of this encounter
--- OUTSIDE RECORDS SUMMARY | 2024-11-11 14:49 | XMS_ITS | Data Portability ---
Author Organization [facility] Address [address] [place] [address] Assessment Encounter Date Assessment Date Assessment LastModified by Organization Details LastModified Time 11/27/2017 11/27/2017 Mr. Turcios has strained the right rotator cuff and trapezius muscles at work while pulling a stack of discs. 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 We recommend physical therapy as well. We will treat with a course of steroid. We will reassess on friday at [facility]. We receommend physical therapy. dana Not available 11/27/2017 22:44:46 Plan of Treatment Reminders Order Date Submit Date Provider Last Modified By Organization Details Last Modified Time Details Appointments None recorded. Lab None recorded. Referral physical therapist referral 2017 018 [facility], [address], [place], [address], 9 06:59:24 Procedures None recorded. Surgeries None recorded. Imaging None recorded. Medication Orders methylpred nisolone 4 mg tablets in a dose pack 2017 018 [facility] #[id number], [address] [facility] [address] [place], [place], [id number], 8 11:26:37 dexamethas one sodium phosphate 4 mg/mL injection solution 2017 018 [email or web address] [facility] #[id number], [address] [facility] [address] [place], [place], [id number], 8 11:26:35 Patient TargetsNo targets recorded. Patient InstructionsNo instructions recorded. Reason for Referral Physical Therapist Referral for Strain of muscle of right shoulder Referring Physician: Dot Stallings, [facility], Encounter Date: 11/27/2017 Procedures Surgical History Date Name Laterality Status Provider Name and Address Organization Details Recorded Time Thyroid Surgery completed [facility] 11/27/2017 10:21:10 Orthopaedic Surgery completed [facility] 11/27/2017 10:21:35 Orthopaedic Surgery completed [facility] 11/27/2017 10:22:00 Imaging Results None recorded. Procedure Notes None recorded. Medical Equipment None Reported. Allergies No known drug allergies Medications Name Sig Start Date Stop Date Status Note LastModified by Organization Details LastModified Time cyclobenzap rine 10 mg tablet 10/02 completed Not Available Not Available Not Available lisinopril 20 mg-hydrochl orothiazide 12.5 mg tablet active Not Available Not Available Not Available levothyroxi ne 200 mcg tablet take 1 tablet by mouth once daily active Not Available Not Available No t Available dexamethaso ne sodium phosphate 4 mg/mL injection solution Take 1 mL by injection route. 2017 active Not Available Not Available Not Avai lable methylpredn isolone 4 mg tablets in a dose pack take as directed active Not Available Not Available No t Available Vitals Date Recorded Body height Body mass index (BMI) Body weight Heart rate Oxygen saturation Oxygen saturation in Arterial blood by Pulse oximetry Body temperature Systolic And Diastolic Provider Name and Address Organization Details Last Updated DateTime 8 175.26 cm 34.1 kg/m2 140965. 24 g 71 /min 99 % 99 % 98.4 [degF] 130/76 mm[Hg] [facility] 8 10:15:19 Social History Question Answer Notes LastModified by Organizat ion Details LastModified Time Tobacco Smoking Status Never Smoker Not Available [employer] 02/15/2020 03:11:15 Do You Have An Advance Directive? No [id number] Information not available 02/15/2020 How Many Years Have You Consumed Alcohol? 15 [id number] Information not available 02/15/2020 Animal Exposure? Yes Informat ion not available 11/27/2017 Auto Related Injury? No Information not available 11/27/2017 Is Blood Transfusion Acceptable In An Emergency? Yes [id number] Information not available 02/15/2020 What Is Your Level Of Caffeine Consumption? Occasional [id number] Information not available 02/15/2020 How Much Tobacco Do You Chew? None [id number] Information not available 02/15/2020 Diabetes No Information no t available 11/27/2017 What Type Of Diet Are You Following? REGULAR [id number] Information not available 02/15/2020 Education 12 Information no t available 11/27/2017 Who Is Your Employer? [employer] [id number] Information not available 02/15/2020 Family History Of Heart Disease? Yes Information not available 11/27/2017 Are There Any Guns Present In Your Home? Yes [id number] Information not available 02/15/2020 Which Of Your Hands Is Dominant? Left [id number] Information not available 02/15/2020 High Blood Pressure Yes Information not available 11/27/2017 High Cholesterol No Informat ion not available 11/27/2017 Live Alone Or With Others? With Others Information not available 11/27/2017 Marital Status Informatio n not available 11/27/2017 What Was The Date Of Your Most Recent Tobacco Screening? 11/27/2017 [id number] Information not available 02/15/2020 How Many Children Do You Have? 3 [id number] Information not available 02/15/2020 Obese No Information no t available 11/27/2017 Do You Use Your Seat Belt Or Car Seat Routinely? Yes [id number] Information not available 02/15/2020 Seat Belts Used Routinely Yes Information not available 11/27/2017 Are You Sexually Active? Yes [id number] Information not available 02/15/2020 Smoke Alarm In Home Yes Information not available 11/27/2017 Do You Have Smoke And Carbon Monoxide Detectors In Your Home? Yes [id number] Information not available 02/15/2020 Are You Passively Exposed To Smoke? Yes Information not available 11/27/2017 What Types Of Sporting Activities Do You Participate In? Golf,basketball ,fishing [id number] Information not available 02/15/2020 General Stress Level Low Information not available 11/27/2017 Do You Use Sunscreen Routinely? Yes [id number] Information not available 02/15/2020 Work Related Injury? Yes Information not available 11/27/2017 Year In School HS Grad Informatio n not available 11/27/2017 Sex: Unknown Functional Status Question Answer Note LastModified by Organizat ion Details LastModified Time What is your level of alcohol consumption? Occasional [id number] Information not available 02/15/2020 Are you currently employed? Yes [id number] Information not available 02/15/2020 Are you able to care for yourself? 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 Moderate [id number] Information not available 02/15/2020 What type of noise exposure are you exposed to? Industrial [id number] Information not available 02/15/2020 Mental Status None recorded. Family History Relationship Description Onset Age of this Age Resolved Age Notes LastModified by Organization Details LastModified Time Father Heart disease 50 Not available 2017 10:16:35 Son Leukemia Not available 11/27/2017 10:16:57 Maternal Grandfather Old-age Not available 2017 10:17:47 Maternal Grandmother Old-age Not available 2017 10:17:47 Paternal Grandfather Old-age Not available 2017 10:17:47 Paternal Grandmother Old-age Not available 2017 10:17:47 Medical History Condition Response Coronary Artery Disease N Gout N Kidney Stones N Blood Diseases N Hyperthyroidism N Hypothyroidism Y COPD N Depression N Developmental or Behavioral Disorders N Eczema, Hives or other skin conditions N Anxiety Disorder N Muscle, Joint, or Bone Problems Y Vision or Eye Problems N Arthritis Y Serious Illness or Injuries Y Congenital Anomalies N Cancer Y Stroke N Bladder or Kidney Problems N Hospital Admission other than Y High Cholesterol N Liver Disease N Fibromyalgia N Kidney Disease N Heart Problems N Ear or Hearing Problems N ADD or ADHD N Thyroid Problems Y Skin Problems N Anemia N Constipation N Diabetes N Bedwetting N Seizures/Epilepsy N Tuberculosis N Diverticulitis N Asthma N Allergies N GERD/Reflux N Heart Disease N Pulmonary Embolism N Hypertension Y Chicken Pox Y Osteoporosis N Past Encounters Encounter ID Performer Location Encounter Start Date Encounter Closed Date Diagnosis/Indication Diagnosis SNOMED-CT Code Diagnosis ICD10 Code Diagnosis Note [id number] Dot Stallings MD [facility] [address] [address] 11/27/2017 09:45:54 12/01/2017 13:52:22 Strain of muscle of right shoulder [id number] S46.911A Health Concerns Section Related Observation LastModified by Organization Detai ls LastModified Time None Recorded Concern Status LastModified by Organization Details LastModified Time None Recorded Advance Directives Directive N: Payers Insurance Date Sequence Insurance Name Policy Number Policy Herman Covered Member ID Herman Member ID Guarantor Name 12/01/2017 1 *SELF PAY* Shannon Turcios 12/01/2017 [facility] (MSIG) [id number] [facility] Garrett Turcios Notes Date Note Type Note Provider Name and Address Organization Details Recorded Time 11/27/2017 text/html on friday was pulling on a stack of discs with a hook in right hand and he felt a burning sensation in the anterior shoulder and has been hurting ever since when he tries to lift anything He took ibuprofen friday after it happened and nothing since. He has never injured the right shoulder before, but did have left shoulder rotator cuff surgery for 2 partial tears ion 2016. And they advised it was just wear and tear. He failed PT and cortisone shots for that shoulder Has worked for 19 years at [employer]. He is from [employer]. He did not play sports in . Pain is not keeping him awake at night. Dot Stallings MD [address] [facility], [address], [place], [address], [place] [facility] 11/27/2017 22:45:18
--- OUTSIDE RECORDS SUMMARY | 2024-11-11 14:49 | XMS_ITS | Encounter Summary ---
Author Organization [facility] Address [address] [place] [address] Care Team Providers Care Paint Roller Cover Machine Setter Name Role Phone Isaura Haque APRN Primary Care Provider [phone] Elsy Velez MD Unavailable Encounter Details Date [...] documented as of this encounter Care Teams Paint Roller Cover Machine Setter Relationship Specialty Start Date End Date Isaura Haque APRN [address] [place] [address] PCP - General 07/10/23 Elsy Velez MD [address] [facility] [address] [place] [id number] Surgeon Neurosurgery 08/12/23 documented as of this encounter
--- OUTSIDE RECORDS SUMMARY | 2024-11-11 14:49 | XMS_ITS | Encounter Summary ---
Author Organization Healthcare Address [address] [place] [address] Care Team Providers Care Margarine Maker Name Role Phone Isaura Haque APRN Primary Care Provider [phone] Elsy Velez MD Unavailable Encounter Details Date Type Department Care Team (Late st Contact Info) Description 01/23/2018 Orders Only External Location [address] [place] [address] Provider, External Social History Tobacco Use Types [...] on filedocumented in this encounter Care Teams Margarine Maker Relationship Specialty Start Date End Date Isaura Haque APRN [address] [place] [address] PCP - General 07/10/23 Elsy Velez MD [address] [place] [address] Surgeon Neurosurgery 08/12/23 documented as of this encounter
--- OUTSIDE RECORDS SUMMARY | 2024-11-11 14:49 | XMS_ITS | Encounter Summary ---
Author Organization Healthcare Address [address] [place] [address] Care Team Providers Care Sales Representative Gas Service Name Role Phone Isaura Haque APRN Primary Care Provider [phone] Elsy Velez MD Unavailable Reason for Visit * Reason Onset Date Comments HCN Clinical Concern/Question 10/06/2024 Encounter Details Date Type Department Care Team ([facility] st Contact Info) Description 10/06/2024 Telephone Medical Office Building Surgery Spine & Joint [address] [facility], [address] [place] [address] Ki Khoury MD [address] [facility] [address] [place] [address] HCN Clinical Concern/Question Social History [...] encounter Miscellaneous Notes * Telephone Encounter - Nikolay Solisa Baltazar - 10/06/2024 2:27 PM EDT Patient is established at [facility] Kailyn Samuel. Requests referral for injection be sent to their office. * Telephone Encounter - Noemí Morris - 10/06/2024 1:55 PM EDT Paperwork/Documentation Request Patient Name: Garrett Turcios Type: patients is requesting we fax patient referral to [facility]'s Pain Management Due Date: unknown date Send To: fax: [phone] Best contact number: [phone] (mobile) Optimal time of day to reach caller: ANYTIME Additional comments/information from caller: None Note: Please do not reply to this message. Follow-up communication and further actions as a result of this message need to be communicated with the patient directly, if the patient is not active onMyChart. If the patient is active on MyChart, they will receive notification of the communication/outcome via [employer]. documented in this encounter Plan of [...] documented as of this encounter Care Teams Sales Representative Gas Service Relationship Specialty Start Date End Date Isaura Haque APRN [address] [place] [address] PCP - General 07/10/23 Elsy Velez MD [address] [place] [address] Surgeon Neurosurgery 08/12/23 documented as of this encounter
--- OUTSIDE RECORDS SUMMARY | 2024-11-11 14:49 | XMS_ITS | Clinical Summary ---
Author Organization [facility] Address [address] [place] [address] Care Team Providers Care Title Curative Specialist Name Role Phone Isaura Haque APRN Primary Care Provider [phone] Elsy Velez MD Unavailable Allergies No known [...] Building Surgery Spine & Joint [address] [facility] [place] [place] [address] Ki Khoury MD HCN Clinical Concern/Question 10/05/2024 8:40 AM EDT Office Visit Medical Office Building Surgery Spine & Joint [address] [facility] [place] [address] [place] [address] Ki Khoury MD Hip pain, right (Primary Dx); Femoroacetabular impingement of right hip; Lumbar disc disease 10/05/2024 8:15 AM EDT - 10/05/2024 11:59 PM EDT Hospital Encounter Medical Office Building Radiology [address] [place] [address] Hip pain, right Discharge Disposition: Home or Self Care 10/05/2024 Travel 09/24/2024 Orders Only External Location [address] [place] [id number] Isaura Haque, CHICKEN HATCHERY HELPER 09/24/2024 Orders Only External Location [address] [place] [phone] Isaura Haque, CHICKEN HATCHERY HELPER 09/03/2024 1:20 PM EDT Office Visit [facility] [address] [place] [address] Faustino Umaña MD JUDITH (acute [...] Health Maintenance Due Date Last Done Comments [facility]-Diabetes: Hemoglobin A1C 1977 [facility]-HIV Screening 1977 [facility]-Hepatitis C Screening 1977 [facility]-/Child/Adol SDOH Screenings 1977 [id number] Vaccine (#1) 1982 Diabetes: Dental Exam 1987 [...] 2022 [facility]-Colorectal Cancer Screening 2022 [facility]-Influenza Vaccine (#1) 2024 [facility]-Depression Screening 05/05/2025 05/05/2024, 04/21 [facility]-Zoster [...] 8:46 AM Final report signed by Ravi Betnley MD on 10/05/2024 8:49 AM Narrative 10/05/2024 [...] ce 09/24/2024 4:04 PM EDT Isaura Haque CHICKEN HATCHERY HELPER IMG MRI PROCEDURES Final Resu lt * MR [facility] OUTSIDE IMAGES (09/24/2024 4:04 PM EDT) Anatomical Region Laterality Modality Magnetic Resonan ce 09/24/2024 4:04 PM EDT Isaura Haque CHICKEN HATCHERY HELPER IMG MRI PROCEDURES Final Resu lt from Last 3 Months Insurance Care Teams Title Curative Specialist Relationship Specialty Start Date End Date Isaura Haque APRN [address] [place] [id number] PCP - General 07/10/23 Elsy Velez MD [address] [facility] [address] [place] [address] Surgeon Neurosurgery 08/12/23
--- NOTE | 2024-11-11 15:02 | A.OFFVIS_ITS ---
[facility] Disclaimer: The information contained in this section may have been updated after the patient was seen, as this information can be updated by other users. Medical History Screening for HIV (human immunodeficiency virus) Encounter for hepatitis C screening test for low risk patient Bilateral otitis media Influenza A Fatty liver Encounter for screening for diabetes mellitus Thyroid cancer 2017 Right knee meniscal tear REPAIRED IN SX. Bulging disc Hypothyroid Gout HTN (hypertension) Enthesopathy of left ankle History of fracture of left ankle Left Achilles bursitis Achilles bursitis of left lower extremity Chronic pain of left ankle Achilles tendinitis Exposure to COVID-19 virus Surgical History H/O thyroidectomy 02/2018, Dr. Devries H/O repair of rotator cuff LEFT Family History Other No significant family history Social History Smoking Status: Never smoker alcohol intake: never substance use type: denies use current occupational status: other Travel in the last 8 weeks?: None household members: spouse housing: house marital status: PM Subjective & Objective Subjective Subjective:: Patient is a pleasant 49-year-old male who presents today for follow-up of his right intra-articular hip injection on 10/26/2024. He does state that he did have 90% relief following this injection however by the next morning he was back to his baseline. He does rate his pain today a 6 out of 10 and denies any new injury or trauma. He does state that his was planning on contacting his orthopedic doctor to let him know that it did not work and that the plan of care was to send him to a neurosurgeon. Patient states he is unsure if his is already talked to him on the phone. Patient is still having more pain in and around his right buttocks today with tenderness and does state that he would like to see about having another muscle injection as those have provided significant relief in the past. He does state that the pain is affecting his sleeping as well as his ADLs such as cooking and cleaning. Patient is prescribed meloxicam from an outside provider. His Jorge L has been reviewed and is appropriate. Review of Systems: General: No recent weight changes, no fever, no sleep disturbances Respiratory: No cough, no shortness of air, no recurring pulmonary infections Cardiovascular/peripheral vascular: No chest pain, no palpitations, no edema, no shortness of breath Gastrointestinal: No new onset incontinence, normal bowel movements reported Genitourinary: No new onset incontinence Musculoskeletal: Right buttocks pain Psychiatric: [Normal mood/affect] Neurological: [Denies weakness in extremities], [denies balance issues] Pain at rest (0-10 scale): 6 Objective Objective:: Physical Exam: General: Alert and oriented x3, no acute distress, pleasant and cooperative Lungs: Respirations even and unlabored, symmetrical chest expansion Eyes: PERRL Musculoskeletal: Flexion and extension of lumbar [spine] somewhat guarded secondary to pain, [antalgic gait noted] point tenderness along right piriformis muscle Neurological: Speech clear, no gross sensory deficit Has patient had previous pain injection?: Yes Percent improvement in pain since last injection: 90% Conservative treatment options previously tried: Home exercise plan Length of treatment: Longer than 12 weeks Meds Home Medications and Allergies Home Medications ?Medication ?Instructions ?Recorded ?Confirmed ?Type atorvastatin 80 mg tablet 80 mg PO HS #90 tabs 4 10/26/24 Rx blood sugar diagnostic (OneTouch #100 ea 07/07/2312/13 Rx Verio test strips) blood-glucose meter #1 ea 07/07/23 10/26/24 Rx lancets 33 gauge #100 ea 07/07/23 10/26/24 Rx ondansetron 4 mg disintegrating 4 mg PO Q8H PRN nausea and 04/29/24 10/26/24 Rx tablet vomiting #30 tabs levothyroxine 175 mcg tablet 175 mcg PO DAILY 09/16/24 10/26/24 History losartan 100 1 tab PO DAILY 09/16/2412/13 History mg-hydrochlorothiazide 25 mg tablet gabapentin 300 mg capsule 300 mg PO TID #90 caps 09/2110/26/24 Rx acetaminophen 300 mg-codeine 30 mg 1 tab PO BID PRN pa in #28 tabs 09/29/24 10/26/24 Rx tablet fenofibrate nanocrystallized 145 145 mg PO DAILY #90 t abs 10/13/24 10/26/24 Rx mg tablet semaglutide 0.25 mg or 0.5 mg (2 See Rx Instructions . Route 10/30/24 Rx mg/3 mL) subcutaneous pen injector .COMPLEX #3 mL (Ozempic) New Prescriptions to Start Prescriptions: Allergies Allergy/AdvReac Type Severity Reaction Status Date / Time No Known Allergies Allergy Verified 09/27/24 10:29 Assessment and Plan *Assessment and plan (1) Piriformis syndrome of right side: Status: Acute Category: Medical Code(s): G57.01 - Lesion of sciatic nerve, right lower limb Plan Patient is experiencing worsening pain in his right buttocks with limited range of motion and point tenderness along his right piriformis muscle. Patient was counseled that he may benefit from repeat piriformis injection. Risk and benefits were discussed with the patient and he would like to proceed forward with this plan of care. Patient has had these in the past with his last injection in June that did provide more than 50% relief. Patient has continued conservative treatment including oral medications, heat and ice, topicals, physical therapy and at home stretching exercise for longer than 12 weeks. Patient will be scheduled for a right piriformis injection without fluoroscopic or ultrasound guidance. We will continue to follow-up with the patient regarding his neurosurgery consult. Patient has been instructed to contact the clinic with any concerns before the next appointment. Dr. Montgomery has reviewed this note and agrees with this plan of care. This note was dictated using voice recognition software and make contain errors or omissions. All injections are used with Lidocaine, Bupivacaine and dexamethasone. Occasionally urine drug screen is needed to verify patient's compliance with our office pain contract. This is ordered based off specific treatments related to chronic pain with the potential to abuse certain medications.
[2024-11-11 15:08] VITALS: BP 132/78; PULSE 82; RESP 18; O2SAT 96; BMI 39.1
== END 2024-11-11 23:59 | disposition home or self-care (01) ==
LOC: SC.PAIN 14:47
PROVIDERS: PCP Nurse Practitioner Family; Visit Provider Nurse Practitioner Family
DX: G57.01 Lesion of sciatic nerve, right lower limb (principal)
CPT/HCPCS: 99212; G0463

== ENCOUNTER 2024-12-14 14:31 | Day surgery (SDC) | payer OTHER, SELFPAY ==
[2024-12-14 14:40] VITALS: BP 143/94; PULSE 76; RESP 18; O2SAT 97; BMI 38.4
[2024-12-14] MEDS: IOPAMIDOL-200 (41%);10ML VIAL 10 ML IV (14:55)
--- NOTE | 2024-12-14 14:55 | EXP.PAIN.PRO ---
Procedure Date: 12/14/24 Time: 14:45 Anesthesiologist:: Jef Vaz CRNA Complications:: None Pre-procedure Diagnosis:: Right piriformis syndrome Post-procedure Diagnosis:: Same Indications for Procedure:: Patient is a pleasant 49-year-old male who comes our clinic today for a right piriformis injection. Patient describes right buttock pain as constant, dull, aching, sharp, stabbing. Procedure Details:: Details of the procedure explained to the patient. The patient was taken to the procedure room placed in the prone position on fluoroscopy table. The area over the right buttock was cleaned using chlorhexidine as a cleansing solution. Using a 22-gauge 3 and half inch spinal needle the right piriformis muscle was accessed with ease using fluoroscopy guidance. Needle position was confirmed using contrast dye 0.5 cc and a lateral spread. After negative aspiration 3 cc of 1% lidocaine +3 cc 0.25% Marcaine and 10 mg of dexamethasone was injected incrementally. Patient tolerated procedure without difficulty. There are no complications. Plan and Disposition:: Patient was discharged without incident.
[2024-12-14 15:00] VITALS: BP 144/87; PULSE 67; RESP 16; O2SAT 100
[2024-12-14 15:16] VITALS: BP 143/94; PULSE 76; RESP 18; O2SAT 97
[2024-12-14] MEDS: DEXAMETHASONE 10MG/ML 1ML VIAL 10 MG (15:16)
[2024-12-14] MEDS: LIDOCAINE 1% 5ML PF VIAL 5 ML (15:16)
[2024-12-14 15:18] VITALS: BP 143/94; PULSE 76; RESP 18; O2SAT 97
== END 2024-12-14 15:05 | disposition home or self-care (01) ==
PROVIDERS: PCP Nurse Practitioner Family; Visit Provider Nurse Practitioner Family
DX: G57.01 Lesion of sciatic nerve, right lower limb (principal); R52 Pain, unspecified; I10 Essential (primary) hypertension; E89.0 Postprocedural hypothyroidism; Z85.850 Personal history of malignant neoplasm of thyroid; Z79.890 Hormone replacement therapy; Z79.899 Other long term (current) drug therapy; Z79.85 Long-term (current) use of injectable non-insulin antidiabetic drugs
CPT/HCPCS: 20552; J1100; J2003; Q9966